=== PATIENT | female | born 1935 | race Caucasian/White ===

== ENCOUNTER 2020-07-02 20:47 | Inpatient (IN) | payer MEDICARE, OTHER, SELFPAY ==
--- NOTE | ~2020-07-02 | XR_ITS ---
EXAMINATION: XR chest 1V portable EXAM DATE: 07/02/2020 23:01 INDICATION: Syncope. Hypertension. Low blood sugar. TECHNIQUE: Portable AP frontal chest x-ray was obtained. Comparison is made to prior examination from 12/14/2015. FINDINGS: Suspect ill-defined bilateral pneumonia or edema. Please clinically correlate. Heart is nor mal in size. No pneumothorax or pleural effusion. There are bony degenerative changes. IMPRESSION: Probable bilateral ill-defined perihilar pneumonia or edema. Reviewed, dictated and finalized at location A.
[2020-07-02 20:45] VITALS: BP 218/104; PULSE 82; RESP 18; TEMP 36.8; O2SAT 99
[2020-07-02] MEDS: DEXTROSE 50% 25 GM/50 ML SYRINGE ×2 (21:18→22:39)
--- NOTE | 2020-07-02 21:59 | ED.GENADULT ---
HPI - General Adult General Chief complaint: Unspecified Stated complaint: low bs Time Seen by Provider: 07/02/20 21:06 History of Present Illness HPI narrative: Patient is a 85-year-old female who presents to emergency department with chief complaint of hypoglycemia. Patient today was getting her hair done and then her daughter checked on her several hours later and found the patient unresponsive. The patient was found to have a low blood sugar and was treated by EMS prior to arrival in the emergency department. Patient is on a long-acting and short acting insulin and states that she may have eaten less than normal this evening. Patient complains that she is cold otherwise she has no other complaints. Related Data Home Medications Medication Instructions Recorded Confirmed ergocalciferol (vitamin D2) 1,250 1,250 mcg PO WEEKLY 07/18/19 mcg (50,000 unit) capsule Allergies Allergy/AdvReac Type Severity Reaction Status Date / Time TU Inhibitors Allergy Unknown Other Verified 07/02/20 21:17 Review of Systems Review of Systems: Narrative: A 10 system review of systems was completed on the patient and is negative except for what is stated in the HPI. Nursing and ancillary documentation was reviewed. [facility] Past Medical History Medical History Chronic renal insufficiency, stage III (moderate) Essential hypertension FH: Parkinson's disease Hyperlipidemia associated with type 2 diabetes mellitus Osteopenia Type 2 diabetes mellitus with stage 3 chronic kidney disease Vitamin D deficiency Family History Family History Mother Asthma Family history of heart disease in male family member before age 55 Sibling Family history of Parkinson's disease, Onset Age: 86 Other Diabetes mellitus Social History Social History Smoking status: Former smoker Second hand tobacco smoke exposure: No Smoking end date: 04/13/97 Alcohol intake: never Exam Narrative: Exam Narrative: GENERAL: Well-appearing, well-nourished, and in no acute distress. HEAD: Normocephalic, atraumatic. EYES: PERRLA and EOMI. ENT: Nares clear, no rhinorrhea or epistaxis. Mucous membranes moist. NECK: Supple. CHEST: Clear to auscultation. No respiratory distress. HEART: Regular rate and rhythm. No murmur heard. Normal peripheral pulses. ABDOMEN: Soft, nontender, nondistended, normal active bowel sounds. EXTREMITIES: Normal range of motion. No edema. SKIN: Warm, dry, no rash. NEURO: No focal deficits. Alert and oriented x3. PSYCH: Normal mood and affect. Course Vital Signs Vital signs: Vital Signs Temperature 36.8 C 07/02/20 20:45 Pulse Rate 82 07/02/20 20:45 Respiratory Rate 18 07/02/20 20:45 Blood Pressure 218/104 H 07/02/20 20:45 Pulse Oximetry 99 07/02/20 20:45 Temperature 36.8 C 07/02/20 20:45 Pulse Rate 74 07/02/20 22:08 Respiratory Rate 16 07/02/20 22:08 Blood Pressure 193/89 H 07/02/20 22:08 Pulse Oximetry 98 07/02/20 22:08 Medical Decision Making Vital Signs Vital Signs: Vital Signs Temperature 36.8 C 07/02/20 20:45 Pulse Rate 82 07/02/20 20:45 Respiratory Rate 18 07/02/20 20:45 Blood Pressure 218/104 H 07/02/20 20:45 Pulse Oximetry 99 07/02/20 20:45 Temperature 36.8 C 07/02/20 20:45 Pulse Rate 74 07/02/20 22:08 Respiratory Rate 16 07/02/20 22:08 Blood Pressure 193/89 H 07/02/20 22:08 Pulse Oximetry 98 07/02/20 22:08 Lab Data Result diagrams: 07/02/20 22:36 07/02/20 22:36 Labs: Lab Results 07/02/20 07/02/20 07/02/20 Range/Units 21:15 22:10 22:26 WBC (4.5-10.0) K/mm3 RBC (4.2-5.4) M/mm3 Hgb (12.0-15.0) g/dL Hct (37.0-47.0) % MCV (80-100) fl MCH (26-34) pg MCHC (32-36) g/dl RDW
[2020-07-02 22:08] VITALS: BP 193/89; PULSE 74; RESP 16; O2SAT 98
[2020-07-02 22:20] LABS: Add Urine Microscopic? YES; Appearance Urine Cloudy (Clear); Bacteria Urine 4+ /hpf; Bilirubin Urine Negative (Negative); Blood Urine 1+ (Negative); Color Urine Yellow (Yellow); Glucose Urine UA 1+ mg/dL (Negative); Ketones Urine Negative (Negative); Leukocyte Esterase Ur 1+ LEU/UL (Negative); Mucus Urine Rare /lpf; Nitrate Urine Negative (Negative); Protein Urine 3+ mg/dL (Negative); Specific Grav Ur 1.014 (1.001-1.035); Squamous Epithelial Cell Urine Moderate /hpf (Few); Urobilinogen Urine Negative mg/dL (<2.0); WBC Urine 31-50 /hpf
[2020-07-02 22:43] LABS: Basophils Absolute Auto 0.1 K/mm3 (0.0-0.1); Basophils Percent Auto 0.3 % (0.2-1.2); Eosinophils Absolute Auto 0.1 K/mm3 (0-0.3); Eosinophils Percent Auto 0.5 % (0-4.4); Hemoglobin 12.9 g/dL (12.0-15.0); Immature Granulocyte Absolute 0.15 K/mm3 (0.00-0.031); Immature Granulocyte Percent A 0.8 % (0-0.5); Lymphocytes Absolute Auto 2.05 K/mm3 (0.9-3.2); Lymphocytes Percent Auto 10.8 % (18.3-44.2); Mean Corpuscular HGB Conc 33.9 g/dl (32-36); Mean Corpuscular Hemoglobin 29.5 pg (26-34); Mean Corpuscular Volume 86.8 fl (80-100); Mean Platelet Volume 9.6 fl (7.4-10.4); Monocytes Absolute Auto 1.3 K/mm3 (0.1-0.6); Neutrophils Absolute Auto 15.3 K/mm3 (1.3-6.7); Neutrophils Percent Auto 80.6 % (45.5-73.1); Platelet Count Result 372 k/mm3 (150-375); Red Blood Count 4.38 M/mm3 (4.2-5.4); Red Cell Distribution Width 12.5 % (11.5-14.5)
[2020-07-02] MEDS: DEXTROSE 10% 1,000 ML 75 ML IV CONT (22:45)
[2020-07-02 23:00] VITALS: BP 199/58; PULSE 74; RESP 18; O2SAT 100
[2020-07-02 23:09] LABS: Alanine Aminotransferase 14 U/L (4-35); Alkaline Phosphatase 76 U/L (38-126); Anion Gap 10 mmol/L (8-16); Aspartate Amino Transferase 26 U/L (14-36); Bilirubin,Total 0.4 mg/dL (0.2-1.3); Blood Urea Nitrogen 43 mg/dL (7-17); Calcium 9.2 mg/dL (8.4-10.2); Carbon Dioxide 24 mmol/L (22-30); Chloride 105 mmol/L (98-107); Estimated CRCL calculation 23 ml/min; Estimated Glomerular Filt Rate 27; Glucose 58 mg/dL (65-105); Potassium 3.7 mmol/L (3.4-5.0); Sodium 139 mmol/L (137-145)
[2020-07-02 23:16] LABS: Glucose Point of Care 193 (65-105)
[2020-07-02 23:16] LABS: Glucose Point of Care 40 (65-105)
[2020-07-02 23:38] LABS: Glucose Point of Care 137 (65-105)
[2020-07-02 23:45] VITALS: BP 178/67; PULSE 76; RESP 20; O2SAT 100
[2020-07-03] VITALS (15 sets, daily range): BP systolic 154–207; BP diastolic 56–87; PULSE 62–86; RESP 15–21; TEMP 36.4–36.7; O2SAT 95–99; BMI 37.8
--- NOTE | 2020-07-03 00:24 | PC.NURSE ---
Georgia rangel [phone]
[2020-07-03 01:02] LABS: Lactic Acid Reflex 2.6 mmol/L (0.7-2.1)
[2020-07-03] MEDS: SODIUM CHLORIDE 0.9% IV 1,000 ML 999 ML IV CONT (01:35)
[2020-07-03 02:05] LABS: Glucose Point of Care 204 (65-105)
--- NOTE | 2020-07-03 02:58 | ADMGEN ---
This patient, Elsie St, was admitted to IMU Room 231-01. Patient/family oriented to hospital policies and general routines including ID bracelet, bed and alarms, visiting hours, pain management, procedures, bathroom and other care routines, personal items, smoking policy, room service/diet, and visiting hours. Information on how to activate the Rapid Response Team has been discussed. Patient/Family are encouraged to report perceived risks to care and to ask questions if they do not understand what they are told or what they should do. Carolyn MCMAHON arrived [id number]
[2020-07-03] MEDS: hydrALAZINE HCL 20 MG/ML VIAL 10 MG IV PUSH (03:09)
--- NOTE | 2020-07-03 03:21 | PM.IMHP ---
H&P: HPI History of Present Illness Date/Time: 07/03/20 03:21 Chief Complaint: Passed out at home+ Narrative: This is a pleasant 85 year old Diabetic female with known history of HTN and hyperlipidemia who presented to the hospital after being found unresponsive at home yesterday. Apparently the patient took her usual 120 units of long acting insulin and 5 units of short acting insulin but didn't eat much afterwards. The patient cannot remember passing out before due to low blood sugars but does remark that last night she slid off of the couch accidently and ended up on the floor. She denies any loss of consciousness at that time or head trauma. The patient was started on Dextrose 10% to maintain her blood sugars in the ER tonight. She also complains of frequent urination but denies any dysuria, hematuria, or other urinary symptoms. Her urinalysis was abnormal and she was started on IV ceftriaxone. On further questioning she denies any headache, fever, chills, cough, shortness of breath, chest pain, palpitations, abdominal pain, nausea, vomiting, diarrhea, rectal bleeding, or LE swelling. ON my encounter with the patient tonight she has no focal deficits and is alert and oriented x 4. No other complaints. Review of Systems Review of Systems: All systems reviewed & are unremarkable except as noted in HPI and below PMFSH Past Medical History Medical History (Updated 07/03/20 @ 03:30 by Rubén Dowd MD) Chronic renal insufficiency, stage III (moderate) Essential hypertension FH: Parkinson's disease Hyperlipidemia associated with type 2 diabetes mellitus Osteopenia Type 2 diabetes mellitus with stage 3 chronic kidney disease Vitamin D deficiency Surgical History Surgical History (Updated 07/03/20 @ 03:26 by Rubén Dowd MD) History of appendectomy History of cholecystectomy Family History Family History Mother Asthma Family history of heart disease in male family member before age 55 Sibling Family history of Parkinson's disease, Onset Age: 86 Other Diabetes mellitus Social History Social History Smoking status: Never smoker Second hand tobacco smoke exposure: No Smoking end date: 04/13/97 Alcohol intake: never Substance use: never Gender identity (if verbalized by the patient): Female Spiritual care concerns: No Meds Home Medications and Allergies Home Medications Medication Instructions Recorded Confirmed Type ergocalciferol (vitamin D2) 1,250 1,250 mcg PO WEEKLY 07/18/19 07/03/20 History mcg (50,000 unit) capsule atorvastatin 20 mg tablet 20 mg PO DAILY #90 tablet 06/24/20 07/03/20 Rx hydrochlorothiazide 25 mg tablet 25 mg PO DAILY #90 tablet 06/24/20 07/03/20 Rx insulin glargine 100 unit/mL (3 120 unit SUB-Q DAILY #108 ml 06/24/20 07/03/20 Rx mL) subcutaneous pen insulin lispro 100 unit/mL 5 unit SUB-Q .TID AC #15 ml 06/24/20 07/03/20 Rx subcutaneous pen losartan 100 mg tablet 100 mg PO DAILY #90 tablet 06/24/20 07/03/20 Rx metformin 1,000 mg tablet See Rx Instructions .ROUTE 06/24/20 07/03/20 Rx .COMPLEX #180 tablet metoprolol succinate 100 mg 100 mg PO DAILY #90 tablet 06/24/20 07/03/20 Rx tablet,extended release 24 hr Allergies Allergy/AdvReac Type Severity Reaction Status Date / Time TU Inhibitors Allergy Unknown Other Verified 07/02/20 21:17 Vital Signs Vital Signs - 24 hr 07/02/20 20:45 07/02/20 22:08 07/02/20 23:00 Temperature 36.8 C Pulse Rate 82 74 74 Respiratory Rate 18 16 18 Blood Pressure 218/104 H 193/89 H 199/58 H Pulse Oximetry 99 98 100 07/02/20 23:45 07/03/20 00:00 07/03/20 00:30 Temperature Pulse Rate 76 75 79 Respiratory Rate 20 21 H 20 Blood Pressure 178/67 H 170/56 H 188/61 H Pulse Oximetry 100 99 99 07/03/20 01:00 Temperature Pulse Rate 77 Respiratory Rate 20 Blood Pressure 207/56 H Puls
[2020-07-03 03:42] LABS: Reflex Lactic Acid Yes or No Add Lactic
[2020-07-03 04:37] LABS: Glucose Point of Care 138 (65-105)
[2020-07-03 05:07] LABS: Lactic Acid 1.8 mmol/L (0.7-2.1)
[2020-07-03] MEDS: DEXTROSE 5% 1,000 ML 1,000 ML 75 ML IV CONT (05:28)
[2020-07-03 08:14] LABS: Glucose Point of Care 102 (65-105)
[2020-07-03] MEDS: ATORVASTATIN 20 MG TABLET PO (08:55)
[2020-07-03] MEDS: METOPROLOL SUCCINATE EXT REL 100 MG TABCR PO (08:55)
[2020-07-03 09:58] LABS: Glucose Point of Care 187 (65-105)
[2020-07-03 12:39] LABS: Glucose Point of Care 169 (65-105)
[2020-07-03 14:23] LABS: Glucose Point of Care 187 (65-105)
[2020-07-03 17:12] LABS: Glucose Point of Care 155 (65-105)
--- NOTE | 2020-07-03 17:13 | PM.IMPN ---
Progress Note: A&P Assessment and Plan (1) Hypoglycemia: Code(s): E16.2 - Hypoglycemia, unspecified Status: Acute Assessment and Plan: The patient has been placed in observation status. Appears to be secondary to insulin use and poor nutrition. Accuchecks. We will hold D10 as her blood glucose is now >200 mg/dl. 07/03/20 17:13 Patient 85-year-old moderately obese female with history of diabetes and take long-acting insulin 120 units at the bedtime and 5 units of NovoLog however patient took her insulin but did not eat much and later was found unresponsive and was brought to the emergency department further evaluate patient was started on dextrose and her blood sugar have improved and we have holding her long-acting insulin, started on low-dose sliding scale to monitor and will adjust her insulin as needed, is also found to leukourea with complaint dysuria and frequency of urination suspect patient have UTI being treated with Rocephin will follow-up on culture and sensitivity and further recommendation to follow, will have a PT OT evaluate the pain and further recommendation to follow. Her son is present in the room. (2) Acute UTI: Code(s): N39.0 - Urinary tract infection, site not specified Status: Acute Assessment and Plan: Continue ceftriaxone, urine culture pending. (3) Leukocytosis: Qualifiers: Leukocytosis type: unspecified Qualified Code(s): D72.829 - Elevated white blood cell count, unspecified Code(s): D72.829 - Elevated white blood cell count, unspecified Status: Acute Assessment and Plan: Secondary to UTI. monitor CBCd. (4) Severe sepsis: Code(s): A41.9 - Sepsis, unspecified organism; R65.20 - Severe sepsis without septic shock Status: Acute Assessment and Plan: Source of sepsis appears to be urinary. Check reflex lactic acid. monitor vital signs closely, continue IV antibiotics, (5) Acute on chronic renal failure: Code(s): N17.9 - Acute kidney failure, unspecified; N18.9 - Chronic kidney disease, unspecified Status: Acute (6) Type 2 diabetes mellitus with stage 3 chronic kidney disease: Code(s): E11.22 - Type 2 diabetes mellitus with diabetic chronic kidney disease; N18.3 - Chronic kidney disease, stage 3 (moderate) Status: Acute Assessment and Plan: Accuchecks, hypoglycemia protocol. resume home insulin therapy when appropriate. (7) Essential hypertension: Code(s): I10 - Essential (primary) hypertension Status: Chronic Assessment and Plan: Uncontrolled. PRN IV hydralazine. Continue home antihypertensives. Subjective Date/time seen: 07/03/20 17:13 Patient 85-year-old moderately obese female with history of diabetes and take long-acting insulin 120 units at the bedtime and 5 units of NovoLog however patient took her insulin but did not eat much and later was found unresponsive and was brought to the emergency department further evaluate patient was started on dextrose and her blood sugar have improved and we have holding her long-acting insulin, started on low-dose sliding scale to monitor and will adjust her insulin as needed, is also found to leukourea with complaint dysuria and frequency of urination suspect patient have UTI being treated with Rocephin will follow-up on culture and sensitivity and further recommendation to follow, will have a PT OT evaluate the pain and further recommendation to follow. Her son is present in the room. Review of Systems Review of Systems: All systems reviewed & are unremarkable except as noted in HPI and below Exam Narrative: Exam Narrative: Moderately obese Patient is comfortable, NAD HEENT: eyes are clear and none icteric LUNGS:CTA HEART: RR S1S2 ABD: BS+, Soft and nontender Lower extremities: no edema SKIN: nonjaundiced Neuro: grossly intact. Objective Data Vital Signs Vital Signs: Vital Signs - 24 hr 07/02/20 20:45 07/02/20
[2020-07-03 20:05] LABS: Glucose Point of Care 246 (65-105)
[2020-07-04 04:45] LABS: Alanine Aminotransferase 12 U/L (4-35); Albumin Level 3.5 g/dL (3.5-5.1); Alkaline Phosphatase 67 U/L (38-126); Anion Gap 8 mmol/L (8-16); Aspartate Amino Transferase 21 U/L (14-36); Bilirubin,Total 0.3 mg/dL (0.2-1.3); Blood Urea Nitrogen 35 mg/dL (7-17); Calcium 8.7 mg/dL (8.4-10.2); Carbon Dioxide 25 mmol/L (22-30); Chloride 107 mmol/L (98-107); Estimated CRCL calculation 24 ml/min; Estimated Glomerular Filt Rate 31; Glucose 110 mg/dL (65-105); Potassium 3.8 mmol/L (3.4-5.0); Sodium 140 mmol/L (137-145)
[2020-07-04 05:00] VITALS: BP 160/71; PULSE 80; RESP 18; TEMP 36.6; O2SAT 97
[2020-07-04 08:00] VITALS: BP 196/62; PULSE 72; RESP 18; TEMP 36.3; O2SAT 97
[2020-07-04 08:51] LABS: Glucose Point of Care 112 (65-105)
[2020-07-04 09:16] VITALS: PULSE 80
[2020-07-04] MEDS: METOPROLOL SUCCINATE EXT REL 100 MG TABCR PO (09:16)
[2020-07-04] MEDS: ATORVASTATIN 20 MG TABLET PO (09:16)
[2020-07-04 12:00] VITALS: BP 181/64; PULSE 75; RESP 18; TEMP 36.3; O2SAT 95
[2020-07-04] MEDS: CALCIUM CARBONATE (TUMS) 500 MG (200 MG ELEMENTAL) PO (13:04)
[2020-07-04 13:05] LABS: Glucose Point of Care 178 (65-105)
--- NOTE | 2020-07-04 13:47 | PC.NURSE ---
This patient, Elsie St, was transferred to [facility] on 07/04/20 at 1347. Personal belongings sent with patient. Report given to SALOME Lara. Appropriate documentation sent with patient.
--- NOTE | 2020-07-04 13:50 | PC.NURSE ---
Patient to room 346 via hospital bed. Patient oriented to room and policies. Belongings with patient.
--- NOTE | 2020-07-04 15:34 | PM.IMPN ---
Progress Note: A&P Assessment and Plan (1) Hypoglycemia: Code(s): E16.2 - Hypoglycemia, unspecified Status: Acute Assessment and Plan: The patient has been placed in observation status. Appears to be secondary to insulin use and poor nutrition. Accuchecks. We will hold D10 as her blood glucose is now >200 mg/dl. 07/04/20 15:34 07/03 Patient 85-year-old moderately obese female with history of diabetes and take long-acting insulin 120 units at the bedtime and 5 units of NovoLog however patient took her insulin but did not eat much and later was found unresponsive and was brought to the emergency department further evaluate patient was started on dextrose and her blood sugar have improved and we have holding her long-acting insulin, started on low-dose sliding scale to monitor and will adjust her insulin as needed, is also found to leukourea with complaint dysuria and frequency of urination suspect patient have UTI being treated with Rocephin will follow-up on culture and sensitivity and further recommendation to follow, will have a PT OT evaluate the pain and further recommendation to follow. Her son is present in the room. 07/04 today patient stats she did not sleep well last night but denies any complaints of chest pain shortness of breath or dizziness, patient is taking 120 units of long-acting insulin at home and presented with hypoglycemia and holding her long acting insulin in the hospital her blood sugars below 200, I spoke with her daughter that will hold her long acting insulin and monitor with sliding scale and consult music educator and further recommendation to follow, patient urine culture is growing Gram-negative bacilli will continue Rocephin will follow-up urine culture and sensitivity. (2) Acute UTI: Code(s): N39.0 - Urinary tract infection, site not specified Status: Acute Assessment and Plan: Continue ceftriaxone, urine culture pending. (3) Leukocytosis: Qualifiers: Leukocytosis type: unspecified Qualified Code(s): D72.829 - Elevated white blood cell count, unspecified Code(s): D72.829 - Elevated white blood cell count, unspecified Status: Acute Assessment and Plan: Secondary to UTI. monitor CBCd. (4) Severe sepsis: Code(s): A41.9 - Sepsis, unspecified organism; R65.20 - Severe sepsis without septic shock Status: Acute Assessment and Plan: Source of sepsis appears to be urinary. Check reflex lactic acid. monitor vital signs closely, continue IV antibiotics, (5) Acute on chronic renal failure: Code(s): N17.9 - Acute kidney failure, unspecified; N18.9 - Chronic kidney disease, unspecified Status: Acute (6) Type 2 diabetes mellitus with stage 3 chronic kidney disease: Code(s): E11.22 - Type 2 diabetes mellitus with diabetic chronic kidney disease; N18.3 - Chronic kidney disease, stage 3 (moderate) Status: Acute Assessment and Plan: Accuchecks, hypoglycemia protocol. resume home insulin therapy when appropriate. (7) Essential hypertension: Code(s): I10 - Essential (primary) hypertension Status: Chronic Assessment and Plan: Uncontrolled. PRN IV hydralazine. Continue home antihypertensives. Subjective Date/time seen: 07/04/20 15:34 07/03 Patient 85-year-old moderately obese female with history of diabetes and take long-acting insulin 120 units at the bedtime and 5 units of NovoLog however patient took her insulin but did not eat much and later was found unresponsive and was brought to the emergency department further evaluate patient was started on dextrose and her blood sugar have improved and we have holding her long-acting insulin, started on low-dose sliding scale to monitor and will adjust her insulin as needed, is also found to leukourea with complaint dysuria and frequency of urination suspect patient have UTI being treated with Rocephin will follow-up on culture and sensitivity an
[2020-07-04 16:40] LABS: Glucose Point of Care 209 (65-105)
[2020-07-04] MEDS: INSULIN ASPART (*BKC) 100 UNITS/ML SUB-Q (16:42)
[2020-07-04 20:38] VITALS: BP 153/63; PULSE 64; RESP 18; TEMP 36.4; O2SAT 97
[2020-07-04 21:40] LABS: Glucose Point of Care 232 (65-105)
[2020-07-05 05:15] VITALS: BP 158/74; PULSE 68; RESP 18; TEMP 36.2; O2SAT 98
[2020-07-05 08:31] LABS: Glucose Point of Care 170 (65-105)
[2020-07-05 08:48] LABS: Hematocrit 36.4 % (37.0-47.0); Hemoglobin 11.7 g/dL (12.0-15.0); Mean Corpuscular HGB Conc 32.1 g/dl (32-36); Mean Corpuscular Hemoglobin 29.4 pg (26-34); Mean Corpuscular Volume 91.5 fl (80-100); Mean Platelet Volume 9.6 fl (7.4-10.4); Platelet Count Result 283 k/mm3 (150-375); Red Blood Count 3.98 M/mm3 (4.2-5.4); Red Cell Distribution Width 12.6 % (11.5-14.5); White Blood Count 11.2 K/mm3 (4.5-10.0)
[2020-07-05 09:01] LABS: Anion Gap 7 mmol/L (8-16); Blood Urea Nitrogen 38 mg/dL (7-17); Calcium 9.1 mg/dL (8.4-10.2); Carbon Dioxide 26 mmol/L (22-30); Chloride 106 mmol/L (98-107); Estimated CRCL calculation 24 ml/min; Estimated Glomerular Filt Rate 31; Glucose 178 mg/dL (65-105); Potassium 4.1 mmol/L (3.4-5.0); Sodium 139 mmol/L (137-145)
[2020-07-05 09:10] VITALS: PULSE 68
[2020-07-05] MEDS: METOPROLOL SUCCINATE EXT REL 100 MG TABCR PO (09:10)
[2020-07-05] MEDS: ATORVASTATIN 20 MG TABLET PO (09:10)
--- NOTE | 2020-07-05 12:22 | PM.DS ---
DS: Admitting Diagnosis Admitting Diagnosis Admitting Diagnosis: Chief Complaint: Passed out at home+ DS: Discharge Diagnosis Discharge Diagnosis (1) Hypoglycemia: Code(s): E16.2 - Hypoglycemia, unspecified Status: Acute Assessment and Plan: The patient has been placed in observation status. Appears to be secondary to insulin use and poor nutrition. Accuchecks. We will hold D10 as her blood glucose is now >200 mg/dl. 07/04/20 15:34 07/03 Patient 85-year-old moderately obese female with history of diabetes and take long-acting insulin 120 units at the bedtime and 5 units of NovoLog however patient took her insulin but did not eat much and later was found unresponsive and was brought to the emergency department further evaluate patient was started on dextrose and her blood sugar have improved and we have holding her long-acting insulin, started on low-dose sliding scale to monitor and will adjust her insulin as needed, is also found to leukourea with complaint dysuria and frequency of urination suspect patient have UTI being treated with Rocephin will follow-up on culture and sensitivity and further recommendation to follow, will have a PT OT evaluate the pain and further recommendation to follow. Her son is present in the room. 07/04 today patient stats she did not sleep well last night but denies any complaints of chest pain shortness of breath or dizziness, patient is taking 120 units of long-acting insulin at home and presented with hypoglycemia and holding her long acting insulin in the hospital her blood sugars below 200, I spoke with her daughter that will hold her long acting insulin and monitor with sliding scale and consult chemical educator and further recommendation to follow, patient urine culture is growing Gram-negative bacilli will continue Rocephin will follow-up urine culture and sensitivity. (2) Acute UTI: Code(s): N39.0 - Urinary tract infection, site not specified Status: Acute Assessment and Plan: Continue ceftriaxone, urine culture pending. (3) Leukocytosis: Qualifiers: Leukocytosis type: unspecified Qualified Code(s): D72.829 - Elevated white blood cell count, unspecified Code(s): D72.829 - Elevated white blood cell count, unspecified Status: Acute Assessment and Plan: Secondary to UTI. monitor CBCd. (4) Severe sepsis: Code(s): A41.9 - Sepsis, unspecified organism; R65.20 - Severe sepsis without septic shock Status: Acute Assessment and Plan: Source of sepsis appears to be urinary. Check reflex lactic acid. monitor vital signs closely, continue IV antibiotics, (5) Acute on chronic renal failure: Code(s): N17.9 - Acute kidney failure, unspecified; N18.9 - Chronic kidney disease, unspecified Status: Acute (6) Type 2 diabetes mellitus with stage 3 chronic kidney disease: Code(s): E11.22 - Type 2 diabetes mellitus with diabetic chronic kidney disease; N18.3 - Chronic kidney disease, stage 3 (moderate) Status: Acute Assessment and Plan: Accuchecks, hypoglycemia protocol. resume home insulin therapy when appropriate. (7) Essential hypertension: Code(s): I10 - Essential (primary) hypertension Status: Chronic Assessment and Plan: Uncontrolled. PRN IV hydralazine. Continue home antihypertensives. DS: Summary Hospital Course Reason for hospitalization: Chief Complaint: Passed out at home+ Narrative: This is a pleasant 85 year old Diabetic female with known history of HTN and hyperlipidemia who presented to the hospital after being found unresponsive at home yesterday. Apparently the patient took her usual 120 units of long acting insulin and 5 units of short acting insulin but didn't eat much afterwards. The patient cannot remember passing out before due to low blood sugars but does remark that last night she slid off of the couch accidently and ended up on the floor. She de
[2020-07-05 13:01] LABS: Glucose Point of Care 186 (65-105)
[2020-07-26 07:23] LABS: Glucose Point of Care < 20 (65-105)
== END 2020-07-05 14:20 | disposition home health service (06) | DRG 872 ==
LOC: ANHED 07-03 01:05 → ANHIMU 07-03 01:39 → ANH3MED 07-05 11:16 → ANHIMU 07-06 13:34
PROVIDERS: Admitting Provider Family Medicine; Emergency Provider Emergency Medicine; PCP Family Medicine; Visit Provider Family Medicine
DX: A41.9 Sepsis, unspecified organism (principal); N39.0 Urinary tract infection, site not specified; N17.9 Acute kidney failure, unspecified; R65.20 Severe sepsis without septic shock; E11.649 Type 2 diabetes mellitus with hypoglycemia without coma; E11.22 Type 2 diabetes mellitus with diabetic chronic kidney disease; I12.9 Hypertensive chronic kidney disease with stage 1 through stage 4 chronic kidney disease, or unspecified chronic kidney disease; N18.30 Chronic kidney disease, stage 3 unspecified; E11.69 Type 2 diabetes mellitus with other specified complication; E78.5 Hyperlipidemia, unspecified; E55.9 Vitamin D deficiency, unspecified; M85.80 Other specified disorders of bone density and structure, unspecified site; Z79.4 Long term (current) use of insulin; Z79.899 Other long term (current) drug therapy
CPT/HCPCS: 36415; 71045; 80048; 80053; 81001; 82948; 83605; 85025; 85027; 87040; 87077; 87086; 87088; 87186; 96361; 96365; 96375; 96376; 97161; 97165; 97530; 97535; 99285; A9270; G0378; J0360; J0696; J1815; J7030; J7070

== ENCOUNTER 2020-12-03 10:22 | Emergency (ER) | payer MEDICARE, OTHER, SELFPAY ==
--- NOTE | ~2020-12-03 | XR_ITS ---
EXAMINATION: XR hip LT min 2V EXAM DATE: 12/03/2020 11:07 INDICATION: pain to LT lateral hip after a child ran into her. Initial encounter. TECHNIQUE: Left hip frontal, 'frog leg' projections for interpretation. There is no prior study for comparison. FINDINGS: Smooth left hip femoral head contour, no radiographic evidence of avascular necrosis. There is mild primary osteoarthritis. There are no acute fractures or dislocations identified. There is no subcutaneous gas. The soft tissue is unremarkable. There are no radiopaque foreign bodies. IMPRESSION: 1. XR hip LT min 2V exam without acute osseous findings. 2. Mild osteoarthritis. Reviewed, dictated and finalized at location A.
--- NOTE | ~2020-12-03 | XR_ITS ---
EXAMINATION: XR ankle LT min 3V EXAM DATE: 12/03/2020 11:07 INDICATION: Pain left lateral ankle no injury. TECHNIQUE: Left ankle frontal, lateral and oblique projections obtained and reviewed. There is no pr ior study for comparison. FINDINGS: The left ankle mortise appears intact. There are small calcaneal spurs. Sequela from prio r medial malleolar avulsion injury. There are no acute fractures or dislocations identified. There i s no subcutaneous gas. The soft tissue is unremarkable. There are no radiopaque foreign bodies. IMPRESSION: Chronic findings as above. Reviewed, dictated and finalized at location A. IMPRESSION: Chronic findings as above.
[2020-12-03 10:40] VITALS: BP 222/68; PULSE 68; RESP 20; TEMP 36.3; O2SAT 98
--- NOTE | 2020-12-03 11:41 | ED.LOWEXIN ---
HPI - Extremity Injury (Lower) General Chief Complaint: Extremity Injury, Lower Stated Complaint: left ankle/hip pain Time Seen by Provider: 12/03/20 11:42 Source: patient and RN notes reviewed Mode of arrival: ambulatory Limitations: no limitations History of Present Illness HPI Narrative: 85-year-old female presents to the [facility] with complaints of left hip and left ankle pain for 1 week. Patient states that a 4-year-old ran right into her about 5 days ago and still having discomfort to the head and ankle area. Patient states she did not fall over., Lost her balance but did not fall. No abdominal pain or chest pain. Is walking with a walker No treatment prior to arrival. Patient has a history of hypertension states that she does take her medication daily. Related Data Home Medications Medication Instructions Recorded Confirmed dorzolamide 22.3 mg-timolol 6.8 1 drp EACH EYE BID 10/17/20 10/18/20 mg/mL eye drops Allergies Allergy/AdvReac Type Severity Reaction Status Date / Time TU Inhibitors Allergy Unknown Other Verified 10/17/20 14:49 Review of Systems Review of Systems: All systems reviewed & are unremarkable except as noted in HPI and below Constitutional: Constitutional: Reports no additional constitutional complaints Eyes: Eyes: Reports no additional eye complaints ENT: Reports system reviewed and no additional complaints, except as documented Cardiovascular: Cardiovascular: Reports no additional cardiovascular complaints and Denies chest pain Respiratory: Respiratory: Reports no additional respiratory complaints, Denies cough and Denies dyspnea Gastrointestinal: Gastrointestinal: Reports no additional gastrointestinal complaints, Denies abdominal pain, Denies nausea and Denies vomiting Musculoskeletal: Musculoskeletal: Reports as per HPI, Denies back pain, Reports arthralgias (Left hip, left ankle) and Denies joint swelling Integumentary/Breasts: Skin/Breast: Reports system reviewed and no additional complaints, except as docu and Denies rash Neurologic: Reports system reviewed and no additional complaints, except as documented Psychiatric: Psychiatric: Reports no additional psychiatric complaints Allergic/Immunologic: Allergic/Immunologic: Reports no additional allergic/immunologic complaints PMFSH Past Medical History Medical History Chronic renal insufficiency, stage III (moderate) Essential hypertension FH: Parkinson's disease Hyperlipidemia associated with type 2 diabetes mellitus Osteopenia Type 2 diabetes mellitus with stage 3 chronic kidney disease Vitamin D deficiency Surgical History Surgical History History of appendectomy History of cholecystectomy Family History Family History Mother Asthma Family history of heart disease in male family member before age 55 Sibling Family history of Parkinson's disease, Onset Age: 86 Other Diabetes mellitus Social History Social History Second hand tobacco smoke exposure: No Smoking end date: 04/13/97 Alcohol intake: never Substance use: never Gender identity (if verbalized by the patient): Female Spiritual care concerns: No Comments At the time of my signature, I reviewed and agree with the nursing past medical, surgical, social, and family history. There is no relevant family history pertinent to the patient complaint. Exam Const: General: no acute distress and ill appearing chronically Nutritional Appearance: well nourished and obese Orientation/consciousness: patient oriented x3 Limitations: No no limitations ([place]) HENMT: Head: normal to inspection Ears: external ears normal, TM's normal bilaterally and EAC's normal Eyes: Pupils: Equal, round and reactive pupils present Neck: Neck: normal visual inspectio
[2020-12-03 12:10] VITALS: BP 148/76
== END 2020-12-03 12:10 | disposition home or self-care (01) ==
PROVIDERS: Emergency Provider Nurse Practitioner; PCP Family Medicine
DX: S70.02XA Contusion of left hip, initial encounter (principal); X58.XXXA Exposure to other specified factors, initial encounter; M25.572 Pain in left ankle and joints of left foot; M19.072 Primary osteoarthritis, left ankle and foot; I12.9 Hypertensive chronic kidney disease with stage 1 through stage 4 chronic kidney disease, or unspecified chronic kidney disease; E11.22 Type 2 diabetes mellitus with diabetic chronic kidney disease; N18.30 Chronic kidney disease, stage 3 unspecified; G20 Parkinson's disease; E78.5 Hyperlipidemia, unspecified; M81.0 Age-related osteoporosis without current pathological fracture
CPT/HCPCS: 73502; 73610; 99214; G0463

== ENCOUNTER 2020-12-22 07:27 | Inpatient (IN) | payer MEDICARE, OTHER, SELFPAY ==
[2020-12-22] VITALS (8 sets, daily range): BP systolic 142–193; BP diastolic 54–86; PULSE 64–78; RESP 18–28; TEMP 36.5–37.1; O2SAT 96–99; BMI 36.4
--- NOTE | ~2020-12-22 | XR_ITS ---
XR chest PICC line 12/22/2020 16:01 Indication: PICC line verification Procedure: AP portable chest Comparison: Comparison to multiple prior studies sequentially, with oldest reviewed study dated 03/14. Findings: Heart size is normal. PICC line tip in the SVC. No focal pneumonia. There is mild pulmonary vascular congestion. No pneumothorax. Impression: 1: Mild pulmonary vascular congestion. Reviewed, dictated and finalized at location A. Impression: 1: Mild pulmonary vascular congestion.
--- NOTE | ~2020-12-22 | CT_ITS ---
EXAMINATION: CT brain wo con EXAM DATE: 12/22/2020 10:49 INDICATION: Loss of consciousness. Temporary change in awareness. TECHNIQUE: Spiral CT of the head was performed without contrast. Axial, coronal and sagittal images were reviewed. The dose-length product (DLP) for this examination was 605.33 mGy-cm. The exposure w as tailored according to patient size, and iterative reconstruction (ASIR) was used as additional dos e reduction technique. There is no prior study for comparison. FINDINGS: There is no acute intraparenchymal hemorrhage. No evidence of intraparenchymal brain mass lesion. No evidence of acute infarction. Please note that initial head CT has limited sensitivity f or small or acute infarctions. There is moderate periventricular and subcortical hypodensity, nonspec ific but probably related to small vessel ischemic disease. There is mild prominence of the sulci a nd ventricles related to cerebral atrophy. There is intracranial carotid arteriosclerosis. There a re no extra-axial collections. There is no mass effect or midline shift. Patient has had bilateral ocular lens surgery. Soft tissue is unremarkable. The visualized sinuses and mastoid air cells are well aerated. IMPRESSION: 1. No acute intracranial findings. 2. Chronic age related findings. Reviewed, dictated and finalized at location A.
--- NOTE | ~2020-12-22 | XR_ITS ---
EXAMINATION: XR hip LT min 3V w AP pelvis EXAM DATE: 12/22/2020 13:07 INDICATION: fall, pain with palpation/weightbearing . Initial encounter. TECHNIQUE: Left hip frontal, crosstable lateral and 'frog-leg' projections for interpretation. Fronta l projection pelvis. Comparison is made to prior examination from 12/03/2020. FINDINGS: There is mild to moderate symmetric bilateral sacroiliac primary osteoarthritis. There are no acute fractures or dislocations identified. There is no subcutaneous gas. The soft tissue is unr emarkable. There are no radiopaque foreign bodies. IMPRESSION: No acute osseous findings. Reviewed, dictated and finalized at location A. IMPRESSION: No acute osseous findings.
--- NOTE | ~2020-12-22 | XR_ITS ---
EXAMINATION: XR knee LT 3V EXAM DATE: 12/22/2020 10:09 INDICATION: Fall, left knee pain. TECHNIQUE: Three projections of the left knee. There is no prior study for comparison. FINDINGS: No evidence osteochondral defect or joint body in the left knee joint. There are no acute fractures or dislocations identified. There is no subcutaneous gas. Small joint effusion. Soft tis parmjit swelling anterior to the patellar tendon. There is patellar enthesopathy. There is moderate prima ry osteoarthritis, patellofemoral compartment most affected. There are no radiopaque foreign bodies. IMPRESSION: 1. XR knee LT 3V exam without acute osseous findings. 2. Anterior subcutaneous edema. 3. Small joint effusion. 4. Moderate osteoarthritis. Reviewed, dictated and finalized at location A.
--- NOTE | ~2020-12-22 | XR_ITS ---
EXAMINATION: XR chest 1V portable EXAM DATE: 12/22/2020 10:09 INDICATION: Confusion. Fall, left knee pain. TECHNIQUE: Portable AP frontal chest x-ray was obtained. Comparison is made to prior examination from 07/02/2020. FINDINGS: The lungs are clear. There are no pleural effusions. Cardiac silhouette is prominent but magnified on this AP technique. There is no pneumothorax suspected. The bones and soft tissues are unremarkable. IMPRESSION: No acute cardiopulmonary findings. Reviewed, dictated and finalized at location A.
--- NOTE | 2020-12-22 09:29 | ECG_ITS ---
Measurements Intervals [place] Rate: 66 P: 56 TX: 201 QRS: -25 QRSD: 152 T: 11 QT: 425 QTc: 446 Interpretive Statements SINUS RHYTHM BORDERLINE AV CONDUCTION DELAY RIGHT BUNDLE BRANCH BLOCK ABNORMAL ECG Electronically Signed On 12-22-2020 11:25:39 CDT by Ronald Parham D.O.
--- NOTE | 2020-12-22 09:49 | ED.SYNCOPE ---
HPI - Syncope General Chief Complaint: Fall Stated Complaint: FALL/L HIP PAIN Time Seen by Provider: 12/22/20 07:45 Source: patient, family, EMS and RN notes reviewed Limitations: no limitations History of Present Illness HPI narrative: Patient is 85 years old white female brought to the emergency room by ambulance from home with her daughter because of syncope. The daughter is telling me that patient been feeling weak over the last few weeks. Intermittent confusion since July 2020, this morning went to the bathroom and did not have enough time to sit on the toilet and urinated all over the place and blacked out. Patient could not get up off the floor, 911 was called, currently patient is asymptomatic as long as does not move. Patient is fully vaccinated for COVID-19, currently denies any fever, chills, nausea, vomiting, chest pain, shortness of breath, headache, neck pain back pain abdominal pain. Complaining of left knee pain if she moves it. Related Data Home Medications Medication Instructions Recorded Confirmed dorzolamide 22.3 mg-timolol 6.8 1 drp EACH EYE BID 10/17/20 10/18/20 mg/mL eye drops Allergies Allergy/AdvReac Type Severity Reaction Status Date / Time TU Inhibitors Allergy Unknown Other Verified 10/17/20 14:49 Review of Systems Review of Systems: CONSTITUTIONAL: Denies fever, chills, or sweats. EYES: Denies visual changes, redness, or discharge. ENT: Denies rhinorrhea, congestion, sore throat, or otalgia. CARDIOVASCULAR: Denies chest pain, palpitations, or edema. RESPIRATORY: Denies cough or dyspnea. GASTROINTESTINAL: Denies abdominal pain, nausea, vomiting, or diarrhea. GENITOURINARY: Denies dysuria or hematuria. SKIN: Denies rash or itching. MUSCULOSKELETAL: Denies back pain, joint pain, or myalgia. NEUROLOGIC: Denies headache, numbness, or weakness. PSYCHIATRIC: Denies anxiety or depression. [facility] Past Medical History Medical History Chronic renal insufficiency, stage III (moderate) Essential hypertension FH: Parkinson's disease Hyperlipidemia associated with type 2 diabetes mellitus Osteopenia Type 2 diabetes mellitus with stage 3 chronic kidney disease Vitamin D deficiency Surgical History Surgical History History of appendectomy History of cholecystectomy Family History Family History Mother Asthma Family history of heart disease in male family member before age 55 Sibling Family history of Parkinson's disease, Onset Age: 86 Other Diabetes mellitus Social History Social History Second hand tobacco smoke exposure: No Smoking end date: 04/13/97 Alcohol intake: never Substance use: never Gender identity (if verbalized by the patient): Female Spiritual care concerns: No Exam Narrative: General appearance: Well-developed, well-nourished Skin: Normal color Head: Normocephalic, nontraumatic Eyes: Clear conjunctiva ENT: Oropharynx normal, ears normal, nose normal Neck: Supple, nontender Chest and respiratory: Airway patent, no respiratory distress, no accessory muscle use Heart: Regular rate/rhythm Abdomen: Soft, nontender, no organomegaly, quiet bowel sounds Vascular: Normal peripheral pulses, normal capillary refill. Musculoskeletal: Mild diffuse tenderness left knee anteriorly, slightly bruised, slight limited range of motion Neurologic: Alert and oriented ?3, [employer] is normal as tested, no gross motor deficit Course Course Emergency Course: Stable Vital Signs Vital signs: V
[2020-12-22 10:55] LABS: Add Urine Microscopic? YES; Appearance Urine Cloudy (Clear); Bilirubin Urine Negative (Negative); Blood Urine 1+ (Negative); Color Urine Yellow (Yellow); Glucose Urine UA 1+ mg/dL (Negative); Ketones Urine Negative (Negative); Leukocyte Esterase Ur 3+ LEU/UL (Negative); Mucus Urine Rare /lpf; Nitrate Urine Negative (Negative); Protein Urine 3+ mg/dL (Negative); RBC Urine 51-75 /hpf (0-2); Specific Grav Ur 1.016 (1.001-1.035); Urobilinogen Urine Negative mg/dL (<2.0); WBC Clumps Urine Present /HPF; WBC Urine >75 /hpf
[2020-12-22] MEDS: cefTRIAXone 1 GM VIAL IM (12:35)
[2020-12-22] MEDS: LIDOCAINE HCL 1% LOCAL INJ 20 ML VIAL 2.1 ML IM (12:36)
--- NOTE | 2020-12-22 12:52 | PC.NURSE ---
Patient has had frequent falls at home. She does use a walker for ambulation normally.
--- NOTE | 2020-12-22 12:54 | PC.NURSE ---
Hospitalist in room, gave verbal order for left hip and pelvis xray.
--- NOTE | 2020-12-22 13:39 | PM.IMHP ---
H&P: HPI History of Present Illness Date/Time: 12/22/20 13:39 this is an 85-year-old female patient who lives home alone. The patient has been complaining of weakness for the last couple weeks. The patient fell approximately 2 weeks ago complaining of left knee and left hip pain. The patient went to the urgent care on 12/03/2020 and had the left hip x-rayed which showed osteoarthritis. Today the patient was sitting on the toilet felt like she was going to vomit the patient stood up to vomit in the sink when she fell over she was stuck between the toilet and the shower and her daughter was not able to lift her up and the patient was not able to ambulate. According to the daughter the patient has been had intermittent confusion since July 2020. The patient has become more forgetful as well. The patient has been using a walker for the last 2 weeks. EMS was activated today when the patient was not able to stand up. The patient has been fully vaccinated for COVID-19. She denies any fever chills nausea vomiting or chest pain. She denies any shortness of breath and complaints of left knee and left hip pain. The patient was found to be positive for UTI. Multiple attempts were made for IV insertion without success. Therefore patient was given IM Rocephin. Venous access nurse has been called for PICC line. The patient is very hard of hearing there for her daughter was answering questions for her. No labs were drawn today as the patient was a difficult lab draw. Just a UA was obtained. Chest x-ray was read as no acute cardiopulmonary findings. Left knee x-ray without acute osseous findings. Anterior subcutaneous edema. Small joint effusion. Moderate ostial arthritis. Head CT read per radiology as no acute intracranial findings. Chronic age-related findings. Hip and pelvis x-ray was read as no acute osseous findings. The patient is being admitted to observation status on the date of service of 12/22/2020 Chief Complaint: Fall with weakness Review of Systems Review of Systems: All systems reviewed & are unremarkable except as noted in HPI and below Constitutional: Constitutional: Reports as per HPI and Reports no additional constitutional complaints Eyes: Eyes: Reports as per HPI and Reports no additional eye complaints ENT: Reports system reviewed and no additional complaints, except as documented and Reports Normal hearing present Cardiovascular: Cardiovascular: Reports no additional cardiovascular complaints Respiratory: Respiratory: Reports no additional respiratory complaints and Reports no additional respiratory complaints Gastrointestinal: Gastrointestinal: Reports as per HPI and Reports no additional gastrointestinal complaints Musculoskeletal: Musculoskeletal: Reports no additional musculoskeletal complaints Integumentary/Breasts: Skin/Breast: Reports system reviewed and no additional complaints, except as docu and Reports as per HPI Neurologic: Reports system reviewed and no additional complaints, except as documented, Reports as per HPI and Reports Normal hearing present Psychiatric: Psychiatric: Reports no additional psychiatric complaints and Reports as per HPI Endocrine: Endocrine: Reports no additional endocrine complaints Hematologic/Lymphatic: Hematologic/Lymphatic: Reports no additional hematologic/lymphatic complaints Allergic/Immunologic: Allergic/Immunologic: Reports no additional allergic/immunologic complaints [facility] Past Medical History Medical History (Updated 12/22/20 @ 13:52 by Priscilla Jacques NP) Chronic renal insufficiency, stage III (moderate) Essential hypertension FH: Parkinson's disease Glaucoma History of diverticulitis of colon Hyperlipidemia associated with type 2 diabetes mellitus Osteopenia Type 2 diabetes mellitus with stage 3 chronic kidney disease Vitamin D deficiency Surgical History Surgical History (Updated 12/22/20 @ 13:52 by Priscilla Jacques NP) History of appendectomy Histo
[2020-12-22 15:02] LABS: Basophils Percent Auto 0.3 % (0.2-1.2); Eosinophils Percent Auto 0.1 % (0-4.4); Hemoglobin 11.9 g/dL (12.0-15.0); Immature Granulocyte Absolute 0.06 K/mm3 (0.00-0.031); Immature Granulocyte Percent A 0.5 % (0-0.5); Lymphocytes Absolute Auto 1.06 K/mm3 (0.9-3.2); Lymphocytes Percent Auto 8.7 % (18.3-44.2); Mean Corpuscular HGB Conc 33.1 g/dl (32-36); Mean Corpuscular Hemoglobin 29.3 pg (26-34); Mean Corpuscular Volume 88.7 fl (80-100); Mean Platelet Volume 9.5 fl (7.4-10.4); Monocytes Absolute Auto 1.2 K/mm3 (0.1-0.6); Monocytes Percent Auto 9.5 % (2.6-8.5); Neutrophils Absolute Auto 9.8 K/mm3 (1.3-6.7); Neutrophils Percent Auto 80.9 % (45.5-73.1); Platelet Count Result 257 k/mm3 (150-375); Red Blood Count 4.06 M/mm3 (4.2-5.4); White Blood Count 12.1 K/mm3 (4.5-10.0)
--- NOTE | 2020-12-22 15:08 | PC.NURSE ---
PICC line nurse, Michael Santizo RN, from [facility] in room placing line at this time.
[2020-12-22 15:11] LABS: INR 0.9; Prothrombin Time 12.5 Seconds (11.1-14.7)
[2020-12-22 15:12] LABS: Partial Thromboplastin Time 23.7 SECONDS (22.3-36.8)
[2020-12-22 15:19] LABS: Alanine Aminotransferase 15 U/L (4-35); Albumin Level 3.7 g/dL (3.5-5.1); Alkaline Phosphatase 91 U/L (38-126); Anion Gap 10 mmol/L (8-16); Aspartate Amino Transferase 30 U/L (14-36); Bilirubin,Total 0.7 mg/dL (0.2-1.3); Blood Urea Nitrogen 38 mg/dL (7-17); Calcium 8.9 mg/dL (8.4-10.2); Carbon Dioxide 23 mmol/L (22-30); Chloride 101 mmol/L (98-107); Estimated CRCL calculation 23 ml/min; Estimated Glomerular Filt Rate 29; Glucose 221 mg/dL (65-110); Potassium 4.4 mmol/L (3.4-5.0); Sodium 134 mmol/L (137-145)
[2020-12-22 15:25] LABS: Troponin I 0.017 ng/mL (0.000-0.034)
[2020-12-22 15:26] LABS: Hemoglobin A1C 9.9 % (<5.7)
[2020-12-22 15:46] LABS: Creatine Kinase 134 U/L (30-135)
--- NOTE | 2020-12-22 16:30 | PC.NURSE ---
PICC line has been placed and verified by xray. Patient ready to go to room.
--- NOTE | 2020-12-22 17:00 | ADMGEN ---
This patient, Elsie [address], was admitted to Medical Room 248-. Patient/family oriented to hospital policies and general routines including ID bracelet, bed and alarms, visiting hours, pain management, procedures, bathroom and other care routines, personal items, smoking policy, room service/diet, and visiting hours. Information on how to activate the Rapid Response Team has been discussed. Patient/Family are encouraged to report perceived risks to care and to ask questions if they do not understand what they are told or what they should do.
[2020-12-22] MEDS: DICLOFENAC SODIUM 1% 100 GM GEL (*BKC) 1 APPLIC TOPICAL (19:31)
[2020-12-22 19:33] LABS: Glucose Point of Care 268 mg/dl (65-105)
[2020-12-22] MEDS: INSULIN ASPART (*BKC) 100 UNITS/ML SUB-Q (19:33)
[2020-12-22] MEDS: DORZOLAMIDE/TIMOLOL OPHTH SOL 10 ML BOTTLE 1 DROP EACH EYE (21:02)
[2020-12-22] MEDS: CENTRAL LINE FLUSH 10 ML IV PUSH (21:04)
[2020-12-23] VITALS (11 sets, daily range): BP systolic 147–176; BP diastolic 52–63; PULSE 56–71; RESP 17–18; TEMP 36.6; O2SAT 95–99
[2020-12-23 00:39] LABS: Glucose Point of Care 189 mg/dl (65-105)
[2020-12-23] MEDS: CENTRAL LINE FLUSH 10 ML IV PUSH ×3 (05:36→22:12)
[2020-12-23] MEDS: CENTRAL LINE FLUSH 20 ML IV PUSH (05:36)
[2020-12-23 06:32] LABS: Basophils Absolute Auto 0.1 K/mm3 (0.0-0.1); Basophils Percent Auto 0.4 % (0.2-1.2); Eosinophils Percent Auto 0.2 % (0-4.4); Hematocrit 34.9 % (37.0-47.0); Hemoglobin 11.7 g/dL (12.0-15.0); Immature Granulocyte Absolute 0.05 K/mm3 (0.00-0.031); Immature Granulocyte Percent A 0.4 % (0-0.5); Lymphocytes Absolute Auto 1.78 K/mm3 (0.9-3.2); Lymphocytes Percent Auto 14.6 % (18.3-44.2); Mean Corpuscular HGB Conc 33.5 g/dl (32-36); Mean Corpuscular Hemoglobin 29.3 pg (26-34); Mean Corpuscular Volume 87.3 fl (80-100); Mean Platelet Volume 9.5 fl (7.4-10.4); Monocytes Absolute Auto 1.6 K/mm3 (0.1-0.6); Monocytes Percent Auto 13.2 % (2.6-8.5); Neutrophils Absolute Auto 8.7 K/mm3 (1.3-6.7); Neutrophils Percent Auto 71.2 % (45.5-73.1); Platelet Count Result 220 k/mm3 (150-375); White Blood Count 12.2 K/mm3 (4.5-10.0)
[2020-12-23 07:15] LABS: Alanine Aminotransferase 15 U/L (4-35); Albumin Level 3.4 g/dL (3.5-5.1); Alkaline Phosphatase 94 U/L (38-126); Anion Gap 9 mmol/L (8-16); Aspartate Amino Transferase 27 U/L (14-36); Bilirubin,Total 0.5 mg/dL (0.2-1.3); Blood Urea Nitrogen 37 mg/dL (7-17); Calcium 8.7 mg/dL (8.4-10.2); Carbon Dioxide 24 mmol/L (22-30); Chloride 102 mmol/L (98-107); Estimated CRCL calculation 23 ml/min; Estimated Glomerular Filt Rate 29; Glucose 199 mg/dL (65-110); Lactate Dehydrogenase 431 U/L (313-618); Magnesium 1.6 mg/dL (1.6-2.3); Potassium 3.8 mmol/L (3.4-5.0); Sodium 135 mmol/L (137-145)
[2020-12-23 08:18] LABS: Glucose Point of Care 201 mg/dl (65-105)
[2020-12-23] MEDS: DICLOFENAC SODIUM 1% 100 GM GEL (*BKC) 1 APPLIC TOPICAL ×4 (08:23→22:12)
[2020-12-23] MEDS: hydroCHLOROthiazide 25 MG TABLET PO (08:23)
[2020-12-23] MEDS: ATORVASTATIN 20 MG TABLET PO (08:24)
[2020-12-23] MEDS: METOPROLOL SUCCINATE EXT REL 100 MG TABCR PO (08:24)
[2020-12-23] MEDS: DORZOLAMIDE/TIMOLOL OPHTH SOL 10 ML BOTTLE 1 DROP EACH EYE ×2 (08:25→22:12)
[2020-12-23] MEDS: INSULIN ASPART (*BKC) 100 UNITS/ML SUB-Q ×3 (08:27→17:29)
[2020-12-23] MEDS: INSULIN GLARGINE (*BKC) 100 UNITS/ML 25 UNITS SUB-Q (08:29)
--- NOTE | 2020-12-23 08:58 | PC.NURSE ---
Pt home med list shows lispro, aspart, lantus, & metformin. Spoke with both daughters and they report patient does not take fast acting insulin (neither aspart nor lispro) and she no longer takes metformin. They state she only takes Lantus.
--- NOTE | 2020-12-23 11:08 | PCPTNOTE ---
On 12/23/20, the student, Garry Begum, provided care and completed [facility] documentation on this patient. I have reviewed the student's documentation and agree with the findings.
[2020-12-23 12:06] LABS: Glucose Point of Care 302 mg/dl (65-105)
[2020-12-23] MEDS: LOSARTAN POTASSIUM 100 MG TABLET PO (12:51)
--- NOTE | 2020-12-23 16:10 | PM.IMPN ---
Progress Note: A&P Assessment and Plan (1) Acute UTI: Code(s): N39.0 - Urinary tract infection, site not specified Status: Acute Assessment and Plan: Continue with Rocephin Follow UC Hx UTI back in June, cultures +Klebsiella pneumoniae (2) Type 2 diabetes mellitus with stage 3 chronic kidney disease: Qualifiers: Diabetes mellitus president and chief commercial officer insulin use: with president and chief commercial officer use Chronic kidney disease stage 3 subtype: unspecified whether 3a or 3b Qualified Code(s): E11.22 - Type 2 diabetes mellitus with diabetic chronic kidney disease; N18.30 - Chronic kidney disease, stage 3 unspecified; Z79.4 - account maintenance representative (current) use of insulin Code(s): E11.22 - Type 2 diabetes mellitus with diabetic chronic kidney disease; N18.3 - Chronic kidney disease, stage 3 (moderate) Status: Chronic Assessment and Plan: AccuCheks AC and HS Hold metformin A1c 9.9 Monitor (3) Hyperlipidemia associated with type 2 diabetes mellitus: Code(s): E11.69 - Type 2 diabetes mellitus with other specified complication; E78.5 - Hyperlipidemia, unspecified Status: Acute Assessment and Plan: Continue with atorvastatin (4) Chronic renal insufficiency, stage III (moderate): Qualifiers: Chronic kidney disease stage 3 subtype: unspecified whether 3a or 3b Qualified Code(s): N18.30 - Chronic kidney disease, stage 3 unspecified Code(s): N18.3 - Chronic kidney disease, stage 3 (moderate) Status: Acute Assessment and Plan: Cr 1.7 Appears close to baseline Avoid nephrotoxins Renally dose all meds Monitor (5) Glaucoma: Code(s): H40.9 - Unspecified glaucoma Status: Chronic Assessment and Plan: Continue with home medications (6) Contusion of hip, left: Qualifiers: Encounter type: initial encounter Qualified Code(s): S70.02XA - Contusion of left hip, initial encounter Code(s): S70.02XA - Contusion of left hip, initial encounter Status: Acute Assessment and Plan: XRAY of hip and the pelvis and the knee no acute abnormalities Avoid NSAIDs Supportive care PT/OT Subjective Date/time seen: 12/23/20 16:10 Interval history: Pt seen and evaluated; no acute events overnight; therapy is at the bedside; pain is controlled Review of Systems Review of Systems: All systems reviewed & are unremarkable except as noted in HPI and below Exam Const: General: no acute distress, alert and awake Orientation/consciousness: patient oriented x3 HENMT: Head: normocephalic and atraumatic Ears: hearing grossly normal bilaterally and external ears normal Face and sinus: face symmetric Mouth: Yes Normal oral and palatal mucosa present Eyes: EOM: EOMs intact bilaterally Neck: Neck: full ROM, trachea midline and no JVD Resp: Effort & Inspection: normal respiratory effort Auscultation: clear to auscultation bilaterally Cardio: Jugular venous distension: no JVD Rate: regular rate Rhythm: regular rhythm Heart sounds: S1 normal heart sound present and S2 normal heart sound present GI: Inspection: normal to inspection GI Palp: Yes Soft to palpation Percussion: Yes normal to percussion Auscultation: normal bowel sounds : General: Yes no CVA tenderness Back/Spine/Pelvis: Back: no CVA tenderness Skin: General skin exam: normal color Rashes: no rashes Neuro: General: patient oriented x3 and CN's II-XI intact bilaterally Cranial nerves: Yes Equal, round and reactive pupils present Speech: normal speech Psych: Appearance: grossly normal Affect: normal affect Judgement: Good judgement present (Psych) Objective Data Vital Signs Vital Signs: Vital Signs - 24 hr 12/22/20 18:56 12/22/20 20:00 12/22/20 22:00 Temperature 37.1 C Pulse Rate 73 71 Respiratory Rate 18 20 Blood Pressure 152/77 H Pulse Oximetry 96 99 12/23/20 00:00 12/23/20 04:00 12/23/20 06:00 Temperature 36.6 C Pulse Rate 69 61 64 Respirator
[2020-12-23 16:58] LABS: Glucose Point of Care 292 mg/dl (65-105)
[2020-12-23 22:48] LABS: Glucose Point of Care 207 mg/dl (65-105)
[2020-12-24] VITALS: PULSE 61
[2020-12-24 03:40] VITALS: BP 154/52; PULSE 59; RESP 16; TEMP 36.6; O2SAT 95
[2020-12-24 04:00] VITALS: PULSE 58
[2020-12-24] MEDS: CENTRAL LINE FLUSH 10 ML IV PUSH (06:27)
[2020-12-24 07:30] LABS: Glucose Point of Care 156 mg/dl (65-105)
[2020-12-24 08:00] VITALS: BP 132/59; PULSE 63; RESP 16; TEMP 36.6; O2SAT 94
[2020-12-24] MEDS: INSULIN GLARGINE (*BKC) 100 UNITS/ML 25 UNITS SUB-Q (08:14)
[2020-12-24] MEDS: LOSARTAN POTASSIUM 100 MG TABLET PO (08:18)
[2020-12-24] MEDS: hydroCHLOROthiazide 25 MG TABLET PO (08:18)
[2020-12-24] MEDS: METOPROLOL SUCCINATE EXT REL 100 MG TABCR PO (08:19)
[2020-12-24] MEDS: ATORVASTATIN 20 MG TABLET PO (08:19)
[2020-12-24] MEDS: DICLOFENAC SODIUM 1% 100 GM GEL (*BKC) 1 APPLIC TOPICAL (08:19)
[2020-12-24] MEDS: DORZOLAMIDE/TIMOLOL OPHTH SOL 10 ML BOTTLE 1 DROP EACH EYE (08:19)
[2020-12-24 08:20] LABS: Hematocrit 34.2 % (37.0-47.0); Hemoglobin 11.1 g/dL (12.0-15.0); Mean Corpuscular HGB Conc 32.5 g/dl (32-36); Mean Corpuscular Hemoglobin 29.3 pg (26-34); Mean Corpuscular Volume 90.2 fl (80-100); Mean Platelet Volume 10.1 fl (7.4-10.4); Platelet Count Result 231 k/mm3 (150-375); Red Blood Count 3.79 M/mm3 (4.2-5.4); Red Cell Distribution Width 12.4 % (11.5-14.5); White Blood Count 12.1 K/mm3 (4.5-10.0)
[2020-12-24 08:36] LABS: Anion Gap 13 mmol/L (8-16); Blood Urea Nitrogen 51 mg/dL (7-17); Calcium 8.3 mg/dL (8.4-10.2); Carbon Dioxide 21 mmol/L (22-30); Chloride 98 mmol/L (98-107); Estimated CRCL calculation 18 ml/min; Estimated Glomerular Filt Rate 21; Glucose 226 mg/dL (65-110); Potassium 3.5 mmol/L (3.4-5.0); Sodium 132 mmol/L (137-145)
[2020-12-24] MEDS: ALTEPLASE 2 MG VIAL (CATHFLO) 4 MG IV PUSH (09:16)
--- NOTE | 2020-12-24 09:35 | WPDNEUROPN ---
Progress Note: A&P Additional Plan considering the clinical symptomatology at this time of presentation and her examination at this particular time with negative evaluation as for the neurological symptomatology is concern she is stable to be discharged if any further questions arise please do not hesitate to contact me Review of Systems Review of Systems: All systems reviewed & are unremarkable except as noted in HPI and below Exam Const: General: cooperative, healthy appearing, comfortable, no acute distress, alert and awake Nutritional Appearance: obese Orientation/consciousness: oriented to person, oriented to place and oriented to time Limitations: physical limitations HENMT: Head: normal to inspection and normocephalic Ears: hearing grossly normal bilaterally General nose exam: Normal external nose present Face and sinus: normal facial exam Mouth: Yes Normal oral and palatal mucosa present Eyes: General: appearance normal, both eyes and all related structures Visual Purdy: normal visual purdy by confrontation Alignment and Position: alignment normal Periorbital: periorbital findings normal Eyelids: eyelids normal Conjunctivae: conjunctivae normal Sclera: sclerae normal Cornea: corneas normal Pupils: Equal, round and reactive pupils present EOM: EOMs intact bilaterally Neck: Neck: full ROM and no lymphadenopathy Lymphatic: no lymphadenopathy noted Resp: Auscultation: clear to auscultation bilaterally Cardio: Rate: regular rate Rhythm: regular rhythm Neuro: General: oriented to person, oriented to place and oriented to time Cranial nerves: Yes CN's II-XII intact bilaterally Cognition (Neuro): normal cognition Speech: normal speech Gait exam (Neuro): Unable to assess gait Motor exam (neuro): 5/5 motor strength present throughout, Pronator motor function not present and No tremor noted Deep tendon reflexes (DTR's): Right triceps reflex intensity grade: 1+, Left triceps reflex intensity grade: 1+, Rt Biceps (C5, C6): 1+, Left biceps reflex intensity grade: 1+, Right brachioradialis reflex intensity grade: 1+, Left brachioradialis reflex intensity grade: 1+, Right patellar reflex intensity grade: 1+, Left patellar reflex intensity grade: 1+, Right ankle reflex intensity grade: 1+ and Left ankle reflex intensity grade: 1+ Coordination: [id number] test normal Psych: Appearance: grossly normal Mental Status: mental status grossly normal Speech and movement: Normal speech and movement present Affect: normal affect Attitude: cooperative Thought process: Normal thought process present Thought content: Yes Normal thought content present Insight: Good insight present (Psych) Judgement: Good judgement present (Psych) Objective Data Vital Signs Vital Signs: Vital Signs - 24 hr 12/23/20 12:00 12/23/20 14:00 12/23/20 16:00 Temperature 36.6 C Pulse Rate 62 71 59 L Respiratory Rate 18 Blood Pressure 165/63 H Pulse Oximetry 98 12/23/20 19:32 12/23/20 20:00 12/24/20 00:00 Temperature 36.6 C Pulse Rate 59 L 56 L 61 Respiratory Rate 17 Blood Pressure 147/52 H Pulse Oximetry 99 12/24/20 03:40 12/24/20 04:00 12/24/20 08:00 Temperature 36.6 C 36.6 C Pulse Rate 59 L 58 L 63 Respiratory Rate 16 16 Blood Pressure 154/52 H 132/59 L Pulse Oximetry 95 94 Intake/Output Intake/Output: Intake & Output 12/21/20 12/22/20 12/23/20 12/24/20 23:59 23:59 23:59 23:59 Intake Total 1670 560 Output Total 200 675 300 Balance -200 995 260 Meds/Results Medications: Active Medications Generic Name Dose Route Start Last Admin Trade Name Freq PRN Reason Stop Dose Admin Alteplase, Recombinant 4 mg 12/24/20 07:40 12/24/20 09:16 Alteplase 2 Mg Vial (Cathflo) IV PUSH 4 mg ONCE PRN Administration Line Occlusion Atorvastatin Calcium 20 mg 12/23/20 09:00 12/24/20 08:19 Atorvastatin 20 Mg Tablet PO 20 mg DAILY CELSO Administration Dextrose 12.5 gm 12/22/20 13:46
[2020-12-24 12:00] VITALS: PULSE 63
[2020-12-24] MEDS: INSULIN ASPART (*BKC) 100 UNITS/ML SUB-Q (12:02)
--- NOTE | 2020-12-24 12:25 | PM.DS ---
DS: Admitting Diagnosis Discharge Date 12/24/2020 Admitting Diagnosis Fall with weakness DS: Discharge Diagnosis Discharge Diagnosis (1) Acute UTI: Code(s): N39.0 - Urinary tract infection, site not specified Status: Acute Assessment and Plan: Continue with Rocephin UC +Escherichia Coli Hx UTI back in June, cultures +Klebsiella pneumoniae (2) Type 2 diabetes mellitus with stage 3 chronic kidney disease: Qualifiers: Diabetes mellitus half-way insulin use: with half-way use Chronic kidney disease stage 3 subtype: unspecified whether 3a or 3b Qualified Code(s): E11.22 - Type 2 diabetes mellitus with diabetic chronic kidney disease; N18.30 - Chronic kidney disease, stage 3 unspecified; Z79.4 - terminal supervisor (current) use of insulin Code(s): E11.22 - Type 2 diabetes mellitus with diabetic chronic kidney disease; N18.3 - Chronic kidney disease, stage 3 (moderate) Status: Chronic Assessment and Plan: AccuCheks AC and HS Hold metformin A1c 9.9 Monitor (3) Hyperlipidemia associated with type 2 diabetes mellitus: Code(s): E11.69 - Type 2 diabetes mellitus with other specified complication; E78.5 - Hyperlipidemia, unspecified Status: Acute Assessment and Plan: Continue with atorvastatin (4) Chronic renal insufficiency, stage III (moderate): Qualifiers: Chronic kidney disease stage 3 subtype: unspecified whether 3a or 3b Qualified Code(s): N18.30 - Chronic kidney disease, stage 3 unspecified Code(s): N18.3 - Chronic kidney disease, stage 3 (moderate) Status: Acute Assessment and Plan: Cr 1.7 Appears close to baseline Avoid nephrotoxins Renally dose all meds Monitor (5) Glaucoma: Code(s): H40.9 - Unspecified glaucoma Status: Chronic Assessment and Plan: Continue with home medications (6) Contusion of hip, left: Qualifiers: Encounter type: initial encounter Qualified Code(s): S70.02XA - Contusion of left hip, initial encounter Code(s): S70.02XA - Contusion of left hip, initial encounter Status: Acute Assessment and Plan: XRAY of hip and the pelvis and the knee no acute abnormalities Avoid NSAIDs Supportive care PT/OT DS: Summary Hospital Course Hospital Course: This is an 85-year-old female patient who lives home alone. The patient has been complaining of weakness for the last couple weeks. The patient fell approximately 2 weeks ago complaining of left knee and left hip pain. The patient went to the urgent care on 12/03/2020 and had the left hip x-rayed which showed osteoarthritis. Today the patient was sitting on the toilet felt like she was going to vomit the patient stood up to vomit in the sink when she fell over she was stuck between the toilet and the shower and her daughter was not able to lift her up and the patient was not able to ambulate. According to the daughter the patient has been had intermittent confusion since July 2020. The patient has become more forgetful as well. The patient has been using a walker for the last 2 weeks. EMS was activated today when the patient was not able to stand up. The patient has been fully vaccinated for COVID-19. She denied any fever chills nausea vomiting or chest pain. She denies any shortness of breath and complaints of left knee and left hip pain. The patient was found to be positive for UTI. Multiple attempts were made for IV insertion without success. Therefore patient was given IM Rocephin. Venous access nurse has been called for PICC line. No labs were drawn today as the patient was a difficult lab draw. Just a UA was obtained. Chest x-ray was read as no acute cardiopulmonary findings. Left knee x-ray without acute osseous findings. Anterior subcutaneous edema. Small joint effusion. Moderate ostial arthritis. Head CT read per radiology as no acute intracranial findings. Chronic age-related findings. Hip and pelvis x-
[2020-12-24 12:51] LABS: Glucose Point of Care 252 mg/dl (65-105)
[2020-12-24 14:00] VITALS: BP 134/58; PULSE 64; RESP 16; TEMP 36.6; O2SAT 95
== END 2020-12-24 16:20 | disposition home health service (06) | DRG 690 ==
LOC: ANHED 08:31 → ANH2MED 13:45
PROVIDERS: Nurse Practitioner; Nurse Practitioner Adult Health; Admitting Provider Internal Medicine Nephrology; Emergency Provider Emergency Medicine; PCP Family Medicine; Visit Provider Internal Medicine
DX: N39.0 Urinary tract infection, site not specified (principal); B96.20 Unspecified Escherichia coli [E. coli] as the cause of diseases classified elsewhere; E11.22 Type 2 diabetes mellitus with diabetic chronic kidney disease; I12.9 Hypertensive chronic kidney disease with stage 1 through stage 4 chronic kidney disease, or unspecified chronic kidney disease; N18.30 Chronic kidney disease, stage 3 unspecified; E11.69 Type 2 diabetes mellitus with other specified complication; E78.5 Hyperlipidemia, unspecified; R55 Syncope and collapse; H40.9 Unspecified glaucoma; S70.02XA Contusion of left hip, initial encounter; M16.12 Unilateral primary osteoarthritis, left hip; W18.30XA Fall on same level, unspecified, initial encounter; Z91.81 History of falling; Z79.4 Long term (current) use of insulin; Z79.899 Other long term (current) drug therapy
CPT/HCPCS: 36415; 36569; 51701; 70450; 71045; 73502; 73562; 80048; 80053; 81001; 82550; 82948; 83036; 83605; 83615; 83735; 84443; 84484; 85025; 85027; 85610; 85730; 87040; 87077; 87086; 87088; 87186; 93005; 96372; 97116; 97162; 97165; 97530; 97535; 99285; A9270; C1751; G0378; J0696; J1815; J2997

== ENCOUNTER 2021-08-06 17:46 | Emergency (ER) | payer MEDICARE, OTHER, SELFPAY ==
[2021-08-06 18:02] VITALS: BP 120/88; PULSE 66; RESP 18; TEMP 36.5; O2SAT 97
--- NOTE | 2021-08-06 18:06 | ECG_ITS ---
Measurements Intervals [place] Rate: 65 P: 54 [place]: 218 QRS: -37 QRSD: 153 T: 7 QT: 436 QTc: 456 Interpretive Statements SINUS RHYTHM WITH FIRST DEGREE AV BLOCK LEFT AXIS DEVIATION [QRS AXIS < -30] RIGHT BUNDLE BRANCH BLOCK [120+ ms QRS DURATION, UPRIGHT V1, 40+ ms S IN I/aVL/V4/V5/V6] COMPARED TO ECG 12/22/2020 09:37:55 FIRST DEGREE AV BLOCK NOW PRESENT LEFT-AXIS DEVIATION NOW PRESENT Electronically Signed On 08-07-2021 13:41:06 CDT by Carole Dixon M.D.
[2021-08-06 19:52] LABS: Basophils Absolute Auto 0.1 K/mm3 (0.0-0.1); Basophils Percent Auto 0.5 % (0.2-1.2); Eosinophils Absolute Auto 0.2 K/mm3 (0-0.3); Eosinophils Percent Auto 1.8 % (0-4.4); Hematocrit 33.3 % (37.0-47.0); Hemoglobin 10.8 g/dL (12.0-15.0); Immature Granulocyte Absolute 0.04 K/mm3 (0.00-0.031); Immature Granulocyte Percent A 0.3 % (0-0.5); Lymphocytes Absolute Auto 3.07 K/mm3 (0.9-3.2); Lymphocytes Percent Auto 25.4 % (18.3-44.2); Mean Corpuscular HGB Conc 32.4 g/dl (32-36); Mean Corpuscular Hemoglobin 29.8 pg (26-34); Mean Platelet Volume 9.4 fl (7.4-10.4); Monocytes Percent Auto 7.9 % (2.6-8.5); Neutrophils Absolute Auto 7.8 K/mm3 (1.3-6.7); Neutrophils Percent Auto 64.1 % (45.5-73.1); Platelet Count Result 282 k/mm3 (150-375); Red Blood Count 3.62 M/mm3 (4.2-5.4); Red Cell Distribution Width 12.1 % (11.5-14.5); White Blood Count 12.1 K/mm3 (4.5-10.0)
[2021-08-06 20:03] LABS: Alanine Aminotransferase 15 U/L (4-35); Albumin Level 3.9 g/dL (3.5-5.1); Alkaline Phosphatase 69 U/L (38-126); Anion Gap 8 mmol/L (8-16); Aspartate Amino Transferase 31 U/L (14-36); Bilirubin,Total 0.2 mg/dL (0.2-1.3); Blood Urea Nitrogen 55 mg/dL (7-17); Calcium 9.7 mg/dL (8.4-10.2); Carbon Dioxide 24 mmol/L (22-30); Chloride 105 mmol/L (98-107); Estimated CRCL calculation 19 ml/min; Estimated Glomerular Filt Rate 24; Glucose 214 mg/dL (65-110); Potassium 4.6 mmol/L (3.4-5.0); Sodium 137 mmol/L (137-145)
[2021-08-06 20:14] LABS: Add Urine Microscopic? YES; Appearance Urine Cloudy (Clear); Bacteria Urine 4+ /hpf; Bilirubin Urine Negative (Negative); Blood Urine Negative (Negative); Color Urine Yellow (Yellow); Glucose Urine UA Negative (Negative); Ketones Urine Negative (Negative); Leukocyte Esterase Ur 2+ LEU/UL (Negative); Mucus Urine Rare /lpf; Nitrate Urine Negative (Negative); Protein Urine 3+ mg/dL (Negative); Specific Grav Ur 1.018 (1.001-1.035); Squamous Epithelial Cell Urine Many /hpf (Few); Urobilinogen Urine Negative mg/dL (<2.0); WBC Urine >75 /hpf
--- NOTE | 2021-08-06 20:39 | ED.GENADULT ---
HPI - General Adult General Chief complaint: Urogenital-Female Stated complaint: sent by PCP for UTI treatment Time Seen by Provider: 08/06/21 19:20 Source: patient and family Mode of arrival: EMS Limitations: no limitations History of Present Illness HPI narrative: Patient sent here by her PCP after her urinalysis showed a urinary tract infection according to daughter. Daughter states that patient has been confused for the past couple days but is now back to baseline. Patient's alert and oriented on exam. Patient has no complaints at this time except for hip pain that has been ongoing for months ever since she injured it accidentally bumped into her and she fell. Patient denies any headache, dizziness, chest pain, shortness of breath, abdominal pain, nausea, vomiting, fever or chills. Related Data Home Medications Medication Instructions Recorded Confirmed dorzolamide 22.3 mg-timolol 6.8 1 drp EACH EYE BID 10/17/20 07/04/21 mg/mL eye drops Allergies Allergy/AdvReac Type Severity Reaction Status Date / Time TU Inhibitors Allergy Unknown Other Verified 07/04/21 09:55 Review of Systems Review of Systems: All systems reviewed & are unremarkable except as noted in HPI and below Constitutional: Constitutional: Denies body ache(s), Denies chills, Denies excessive sweating, Denies fatigue, Denies fever(s), Denies headache(s), Denies lethargy, Denies malaise, Denies weakness and Denies weight loss Eyes: Eyes: Denies blurry vision, Denies change in vision and Denies loss of vision ENT: Denies dizziness, Denies ear discharge, Denies headache(s), Denies lip swelling, Denies epistaxis, Denies nasal congestion, Denies neck pain, Denies throat swelling and Denies tongue swelling Cardiovascular: Cardiovascular: Denies chest pain, Denies chest pain at rest, Denies chest pain with activity, Denies diaphoresis, Denies rapid heart rate, Denies edema, Denies irregular heart rhythm, Denies lightheadedness, Denies palpitations, Denies dyspnea and Denies dyspnea on exertion Respiratory: Respiratory: Denies chest congestion, Denies cough, Denies hemoptysis, Denies dyspnea and Denies dyspnea on exertion Gastrointestinal: Gastrointestinal: Denies abdominal pain, Denies melena, Denies hematochezia, Denies diarrhea, Denies nausea, Denies vomiting and Denies hematemesis Musculoskeletal: Musculoskeletal: Denies abnormal gait, Denies deformity, Denies joint swelling, Denies limited range of motion, Denies neck pain and Denies numbness Neurologic: Denies Abnormal speech present, Denies abnormal gait, Denies confusion, Denies dizziness, Denies headache(s), Denies focal weakness, Denies loss of vision, Denies numbness, Denies Other visual disturbances, Denies Sensory deficit (Neuro) and Denies weakness Psychiatric: Psychiatric: Denies confusion, Denies depression, Denies auditory hallucinations, Denies homicidal ideation and Denies suicidal ideation Endocrine: Endocrine: Denies cold intolerance, Denies excessive sweating, Denies fatigue, Denies heat intolerance and Denies palpitations Hematologic/Lymphatic: Hematologic/Lymphatic: Denies easy bleeding and Denies easy bruising Allergic/Immunologic: Allergic/Immunologic: Denies lip swelling, Denies throat swelling and Denies tongue swelling PMFSH Past Medical History Medical History Anemia Chronic renal insufficiency, stage III (moderate) Essential hypertension FH: Parkinson's disease Glaucoma History of diverticulitis of colon Hyperlipidemia associated with type 2 diabetes mellitus Osteopenia Type 2 diabetes mellitus with stage 3 chronic kidney disease Vitamin D deficiency Surgical History Surgical History History of appendectomy History of cholecystectomy History of colectomy Due to severe diverticulitis History of colostomy reversal History of partial hysterectomy Hx of cataract ex
[2021-08-06] MEDS: SODIUM CHLORIDE 0.9% IV 1,000 ML 250 ML IV CONT (21:35)
[2021-08-06] MEDS: ACETAMINOPHEN 325 MG TABLET 650 MG PO (21:35)
[2021-08-06 21:54] VITALS: BP 180/61; PULSE 60; RESP 16; O2SAT 98
[2021-08-06 23:01] VITALS: BP 175/83; PULSE 72; RESP 18; O2SAT 99
== END 2021-08-06 23:05 | disposition home or self-care (01) ==
LOC: ANHED 21:21
PROVIDERS: Emergency Provider Emergency Medicine; PCP Family Medicine
DX: R41.82 Altered mental status, unspecified (principal); N39.0 Urinary tract infection, site not specified; E11.22 Type 2 diabetes mellitus with diabetic chronic kidney disease; I12.9 Hypertensive chronic kidney disease with stage 1 through stage 4 chronic kidney disease, or unspecified chronic kidney disease; N18.30 Chronic kidney disease, stage 3 unspecified; E78.5 Hyperlipidemia, unspecified; Z86.2 Personal history of diseases of the blood and blood-forming organs and certain disorders involving the immune mechanism; Z90.89 Acquired absence of other organs; Z90.49 Acquired absence of other specified parts of digestive tract; Z90.711 Acquired absence of uterus with remaining cervical stump
CPT/HCPCS: 36415; 80053; 81001; 85025; 87077; 87086; 87186; 93005; 96361; 96365; 99284; A9270; J0696; J7030

== ENCOUNTER 2021-11-04 14:49 | Outpatient (NON) | payer MEDICARE, OTHER, SELFPAY ==
[2021-11-10 15:38] LABS: Albumin 69 %; Measured Kappa Chains 5.43 mg/dL (<2.00); Measured Lambda Chains 3.15 mg/dL (<2.00); Pro/Creat Ratio 2819 mg/g creat (<=114); Total Kappa Chains 38.01 mg/24 h; Total Lambda Chains 22.05 mg/24 h
[2021-11-11 12:38] LABS: Protein,total, 24 Hr Ur 1638 mg/24h
== END 2021-11-04 14:50 | disposition home or self-care (01) ==
PROVIDERS: PCP Family Medicine; Visit Provider Internal Medicine Nephrology
DX: N18.32 Chronic kidney disease, stage 3b (principal)
CPT/HCPCS: 86335

== ENCOUNTER 2021-11-13 15:09 | Outpatient (CLI) | payer MEDICARE, OTHER, SELFPAY ==
--- NOTE | ~2021-11-13 | US_ITS ---
EXAMINATION: US renal BI DATE: 11/13/2021 16:08 INDICATION: ESSENTIAL HYPERTENSION;CKD STAGE 3B;DYSLIPIDEMIA TECHNIQUE: Multiple ultrasound grayscale images of the kidneys were obtained. COMPARISON: CT abdomen and pelvis 12/14/2015 FINDINGS: The right kidney measures 11.6 x 5.1 x 5.7 cm. The left kidney measures 11.5 x 5.1 x 6.5 cm. The kidn eys demonstrate normal parenchymal echogenicity and cortical thinning. 1 cm exophytic right lower rodolfo e cyst. Duplicated collecting system on the left. There is no hydronephrosis. The bladder is normal. Incidental note of liver echogenicity as can be seen with steatosis. IMPRESSION: 1. Bilateral renal cortical atrophy. Reviewed, dictated and finalized at location K.
[2021-11-13 17:27] LABS: Appearance Urine Clear (Clear); Bilirubin Urine Negative (Negative); Color Urine Yellow (Yellow); Glucose Urine UA Trace mg/dL (Negative); Ketones Urine Negative (Negative); Leukocyte Esterase Ur Negative LEU/UL (NEGATIVE); Nitrate Urine Negative (Negative); Protein Urine 3+ mg/dL (Negative); Urobilinogen Urine 0.2 mg/dL (<2.0)
[2021-11-13 17:29] LABS: Add Urine Microscopic? YES; Blood Urine Trace-Intact (Negative)
[2021-11-13 17:31] LABS: Bacteria Urine Trace /hpf; Mucus Urine Rare /lpf; RBC Urine 0-2 /hpf (0-2); Squamous Epithelial Cell Urine Occasional /hpf (Few); WBC Urine 0-3 /hpf (0-3)
[2021-11-13 17:34] LABS: Creatinine Urine 90.2 mg/dL
[2021-11-13 17:35] LABS: Hematocrit 32.2 % (37.0-47.0); Hemoglobin 10.4 g/dL (12.0-15.0); Mean Corpuscular HGB Conc 32.3 g/dl (32-36); Mean Corpuscular Hemoglobin 30.7 pg (26-34); Mean Platelet Volume 9.6 fl (7.4-10.4); Platelet Count Result 271 k/mm3 (150-375); Red Blood Count 3.39 M/mm3 (4.2-5.4); Red Cell Distribution Width 11.9 % (11.5-14.5)
[2021-11-13 17:55] LABS: Total Protein Urine Random 350 mg/dL; Ur Ttl Prot Creatinine Ratio 3.88 mg/mg (0-0.20)
[2021-11-13 19:05] LABS: Albumin Level 3.8 g/dL (3.5-5.1); Anion Gap 12 mmol/L (8-16); Blood Urea Nitrogen 64 mg/dL (7-17); Carbon Dioxide 23 mmol/L (22-30); Chloride 103 mmol/L (98-107); Estimated Glomerular Filt Rate 24; Glucose 281 mg/dL (65-110); Potassium 4.9 mmol/L (3.4-5.0); Sodium 138 mmol/L (137-145)
[2021-11-14 06:34] LABS: Complement C3 132 mg/dL (88-165)
[2021-11-18 07:27] LABS: Kappa\\Lambda Light Chains 1.72 (0.26-1.65); Lambda Light Chain 57.2 mg/L (5.7-26.3)
[2021-11-21 12:53] LABS: Complement Total CH50 52 U/mL (31-60)
== END 2021-11-13 15:10 | disposition home or self-care (01) ==
PROVIDERS: PCP Family Medicine; Visit Provider Internal Medicine Nephrology
DX: I12.9 Hypertensive chronic kidney disease with stage 1 through stage 4 chronic kidney disease, or unspecified chronic kidney disease (principal); N18.32 Chronic kidney disease, stage 3b; E78.5 Hyperlipidemia, unspecified
CPT/HCPCS: 36415; 76775; 80069; 81001; 82570; 83883; 83970; 84156; 85027; 86038; 86160; 86162; 86334

== ENCOUNTER 2022-01-23 22:18 | Inpatient (IN) | payer MEDICARE, OTHER, SELFPAY ==
--- NOTE | ~2022-01-23 | XR_ITS ---
EXAMINATION: XR hip LT 2V w AP pelvis DATE: 01/27/2022 10:58 INDICATION: Left hip pain. TECHNIQUE: An anteroposterior view of the pelvis and 2 views of left hip were obtained. COMPARISON: Pelvis and left hip radiographs 12/22/2020 FINDINGS: Bone alignment is normal. No fracture. There is mild osteoarthritis of the hips. IMPRESSION: 1. Mild osteoarthritis of the hips. Reviewed, dictated and finalized at location B.
--- NOTE | ~2022-01-23 | XR_ITS ---
EXAMINATION: XR chest 1V portable INDICATION: Altered mental status, COVID 19 positive TECHNIQUE: Portable AP chest at 2241 hours COMPARISON: 12/22/2020 FINDINGS: There are patchy opacities throughout the lungs, left greater than right. No pleural effusi on or pneumothorax. The cardiomediastinal silhouette is normal. IMPRESSION: 1. Patchy airspace opacities throughout the lungs, consistent with pneumonia versus pulmonary edema. Reviewed, dictated and finalized at location F. IMPRESSION: 1. Patchy airspace opacities throughout the lungs, consistent with pneumonia ve rsus pulmonary edema.
[2022-01-23 22:26] VITALS: BP 194/99; PULSE 90; RESP 31; TEMP 37.6; O2SAT 99
[2022-01-23] MEDS: SODIUM CHLORIDE 0.9% IV 1,000 ML 999 ML IV CONT (23:09)
[2022-01-23 23:21] LABS: Add Urine Microscopic? YES; Appearance Urine Clear (Clear); Bacteria Urine 1+ /hpf; Bilirubin Urine Negative (Negative); Blood Urine 1+ (Negative); Color Urine Yellow (Yellow); Glucose Urine UA Negative (Negative); Ketones Urine Negative (Negative); Leukocyte Esterase Ur Negative LEU/UL (Negative); Mucus Urine Rare /lpf; Nitrate Urine Negative (Negative); Protein Urine 3+ mg/dL (Negative); Specific Grav Ur 1.015 (1.001-1.035); Squamous Epithelial Cell Urine Rare /hpf (Few); Urobilinogen Urine Negative mg/dL (<2.0)
--- NOTE | 2022-01-23 23:44 | PC.NURSE ---
2310 Assumed pt care from Avril Garcia RN
[2022-01-23 23:53] LABS: SARS-CoV-2 RNA PCR Positive
[2022-01-23 23:54] LABS: Hematocrit 36.8 % (37.0-47.0); Immature Platelet Fraction Pct 1.3 % (0.9-11.2); Mean Corpuscular HGB Conc 32.6 g/dl (32-36); Mean Corpuscular Hemoglobin 32.1 pg (26-34); Mean Corpuscular Volume 98.4 fl (80-100); Mean Platelet Volume 9.9 fl (7.4-10.4); Platelet Count Result 201 k/mm3 (150-375); Red Blood Count 3.74 M/mm3 (4.2-5.4); Red Cell Distribution Width 11.3 % (11.5-14.5); White Blood Count 13.9 K/mm3 (4.5-10.0)
[2022-01-24] VITALS (9 sets, daily range): BP systolic 178–226; BP diastolic 70–104; PULSE 68–82; RESP 17–32; TEMP 36.6–37.6; O2SAT 96–98; BMI 37.8
[2022-01-24 00:11] LABS: NT Pro B Type Natriuretic Pept 1900 pg/mL (5-100)
--- NOTE | 2022-01-24 00:26 | ED.GENADULT ---
HPI - General Adult General Chief complaint: Altered Mental Status Stated complaint: AMS, COVID+ Time Seen by Provider: 01/23/22 22:19 History of Present Illness HPI narrative: Patient is an 86-year-old female who presents ER with new altered mental status. She lives at home with family is typically oriented x4. Today patient was oriented x1-2. Patient had increasing weakness and difficulty moving around. No falls. Patient had 2 home COVID test administered which came back positive. Is not known whether anybody in the home was known to be positive. Patient has no complaints at this time but also is unsure as to why she is here. Related Data Home Medications Medication Instructions Recorded Confirmed atorvastatin 20 mg tablet 20 mg PO DAILY 01/24/22 01/24/22 insulin glargine 100 unit/mL (3 28 unit subcut DAILY 01/24/22 01/24/22 mL) subcutaneous pen (Lantus Solostar U-100 Insulin) Allergies Allergy/AdvReac Type Severity Reaction Status Date / Time TU Inhibitors Allergy Unknown Other Verified 08/15/21 15:18 Review of Systems Review of Systems: ROS unobtainable: Yes unobtainable due to mental status [facility] Past Medical History Medical History (Updated 01/24/22 @ 08:03 by Rogers Zafar MD) Anemia Chronic renal disease, stage 4, severely decreased glomerular filtration rate (GFR) between 15-29 mL/min/1.73 square meter Diabetic peripheral neuropathy Essential hypertension Glaucoma History of diverticulitis of colon Hyperlipidemia associated with type 2 diabetes mellitus Osteopenia Type 2 diabetes mellitus Ventral hernia without obstruction or gangrene Vitamin D deficiency Surgical History Surgical History History of appendectomy History of cholecystectomy History of colectomy Due to severe diverticulitis History of colostomy reversal History of partial hysterectomy Hx of cataract extraction Status post ORIF of fracture of ankle Family History Family History Mother Asthma Family history of heart disease in male family member before age 55 Sibling Family history of Parkinson's disease, Onset Age: 86 Daughter Hypothyroidism Other Diabetes mellitus Social History Social History Social History: The patient lives home alone but her daughters check in on her. The patient walks with a walker. Her daughter Georgia rangel is a durable power [employer] attorney for healthcare. The patient is a full code. The patient used to smoke many years ago. 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 The patient does not use any alcohol marijuana or illicit drugs. Second hand tobacco smoke exposure: No Alcohol intake: never Substance use: never Gender identity (if verbalized by the patient): Female Spiritual care concerns: No Exam Narrative: GENERAL: Fatigued appearing, well-nourished, and in no acute distress. HEAD: Normocephalic, atraumatic. EYES: PERRL and EOMI. ENT: Mucous membranes moist. CHEST: Clear to auscultation. No respiratory distress. HEART: Regular rate and rhythm. Normal peripheral pulses. ABDOMEN: Soft, nontender, nondistended. EXTREMITIES: Normal range of motion. No edema. SKIN: Warm, dry, no rash. NEURO: Alert and oriented x2. Course Vital Signs Vital signs: Vital Signs Temperature 99.6 F 01/23/22 22:26 Pulse Rate 90 01/23/22 22:26 Respiratory Rate 31 H 01/23/22 22:26 Blood Pressure 194/99 H 01/23/22 22:26 Pulse Oximetry 99 01/23/22 22:26 Oxygen Delivery Nasal Cannula 01/23/22 22:26 Oxygen Flow Rate 2 01/23/22 22:26 Temperature 99.6 F 01/24/22 06:00 Pulse Rate 80 01/24/22 06:00 Respiratory Rate 20 01/24/22 06:00 Blood Pressure 186/104 H 01/24/22 06:00 Pulse Oximetry 96 01/24/22 06:00 Oxygen Delivery Room Air 01/24/22 04:10 Oxygen Flow Rate 2
[2022-01-24 00:32] LABS: Anisocytosis 1+ (NORMAL); Band Neutrophils Percent 1 % (0-6); Eosinophils Absolute Manual 0.41 K/mm3 (0.02-0.5); Eosinophils Percent Manual 3 % (0-4); Hypochromasia 1+ (NORMAL); Lymphocytes Absolute Manual 1.94 K/mm3 (1.1-4.5); Microcytosis 1+ (NORMAL); Monocytes Absolute Manual 0.41 K/mm3 (0.1-0.90); Monocytes Percent Manual 3 % (3-9); Myelocytes Percent 1 %; Neutrophils Absolute Manual 10.98 K/mm3 (1.7-7.2); Neutrophils Percent Manual 78 % (46-73); Platelet Estimate Adequate (Adequate); Poikilocytosis 2+ (NORMAL); Schistocytes 1+ (NORMAL); Total Cells Counted 100
[2022-01-24 00:33] LABS: Acanthocytes 1+ (NORMAL); Atypical Lymphocytes Present; Burr Cells 1+ (NORMAL); Hypersegmented Neutrophils Present; Smudge Cells MANY; Toxic Granulation Present (NORMAL)
[2022-01-24 02:09] LABS: Alanine Aminotransferase 16 U/L (6-35); Albumin Level 3.4 g/dL (3.5-5.1); Alkaline Phosphatase 72 U/L (38-126); Anion Gap 8 mmol/L (8-16); Aspartate Amino Transferase 24 U/L (14-36); Bilirubin,Total 0.4 mg/dL (0.2-1.3); Blood Urea Nitrogen 40 mg/dL (7-17); Calcium 8.4 mg/dL (8.4-10.2); Carbon Dioxide 22 mmol/L (22-30); Chloride 110 mmol/L (98-107); Estimated CRCL calculation 25 ml/min; Estimated Glomerular Filt Rate 31; Glucose 175 mg/dL (65-110); Sodium 140 mmol/L (137-145)
--- NOTE | 2022-01-24 03:55 | PC.NURSE ---
0345 Pt daughter called, updated on pt. Informed her of pt observation status admission. Pt daughter verbalized understanding and was making sure that she was ok to be alone for 10 hours during the day while her daughter is at work.
--- NOTE | 2022-01-24 04:10 | ADMGEN ---
This patient, Elsie [address], was admitted to Medical Room 345-01. Patient/family oriented to hospital policies and general routines including ID bracelet, bed and alarms, visiting hours, pain management, procedures, bathroom and other care routines, personal items, smoking policy, room service/diet, and visiting hours. Information on how to activate the Rapid Response Team has been discussed. Patient/Family are encouraged to report perceived risks to care and to ask questions if they do not understand what they are told or what they should do.
--- NOTE | 2022-01-24 04:49 | PC.NURSE ---
Attempted to call daughter/[place] at 0415 to complete admission questions. No answer, voicemail left.
[2022-01-24 06:02] LABS: Lactic Acid Reflex 1.5 mmol/L (0.7-2.0)
[2022-01-24 06:09] LABS: CRP 6.8 mg/dL (<1.0)
--- NOTE | 2022-01-24 06:13 | PM.IMHP ---
H&P: HPI History of Present Illness Date/Time: 01/24/22 06:13 Chief Complaint: New confusion Narrative: 86-year-old female with a past medical history of type 2 diabetes mellitus, hypertension, PMFSH Past Medical History Medical History (Updated 01/24/22 @ 06:32 by Telma Aquino DO) Anemia Chronic renal disease, stage 4, severely decreased glomerular filtration rate (GFR) between 15-29 mL/min/1.73 square meter Diabetic peripheral neuropathy Essential hypertension Glaucoma History of diverticulitis of colon Hyperlipidemia associated with type 2 diabetes mellitus Osteopenia Type 2 diabetes mellitus Ventral hernia without obstruction or gangrene Vitamin D deficiency Surgical History Surgical History History of appendectomy History of cholecystectomy History of colectomy Due to severe diverticulitis History of colostomy reversal History of partial hysterectomy Hx of cataract extraction Status post ORIF of fracture of ankle Family History Family History Mother Asthma Family history of heart disease in male family member before age 55 Sibling Family history of Parkinson's disease, Onset Age: 86 Daughter Hypothyroidism Other Diabetes mellitus Social History Social History Social History: The patient lives home alone but her daughters check in on her. The patient walks with a walker. Her daughter Georgia rangel is a durable power sports attorney for healthcare. The patient is a full code. The patient used to smoke many years ago. 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 The patient does not use any alcohol marijuana or illicit drugs. Second hand tobacco smoke exposure: No Alcohol intake: never Substance use: never Gender identity (if verbalized by the patient): Female Spiritual care concerns: No Meds Home Medications and Allergies Home Medications Medication Instructions Recorded Confirmed Type flash glucose scanning reader #1 ea 07/23/21 01/24/22 Rx (FreeStyle Fadi 2 [place]) hydrochlorothiazide 25 mg tablet 25 mg PO DAILY #90 tabs 09/12/21 01/24/22 Rx losartan 100 mg tablet 100 mg PO DAILY #90 tabs 09/12/21 01/24/22 Rx ergocalciferol (vitamin D2) 1,250 1,250 mcg PO WEEKLY #12 caps 10/17/21 01/24/22 Rx mcg (50,000 unit) capsule metoprolol succinate 100 mg 100 mg PO DAILY #90 tabs 12/11/21 01/24/22 Rx tablet,extended release 24 hr atorvastatin 20 mg tablet 20 mg PO DAILY 01/24/22 01/24/22 History insulin glargine 100 unit/mL (3 28 unit subcut DAILY 01/24/22 01/24/22 History mL) subcutaneous pen (Lantus Solostar U-100 Insulin) Allergies Allergy/AdvReac Type Severity Reaction Status Date / Time TU Inhibitors Allergy Unknown Other Verified 08/15/21 15:18 Vital Signs Vital Signs - 24 hr 01/23/22 22:26 01/24/22 00:53 01/24/22 01:00 Temperature 99.6 F Pulse Rate 90 82 82 Respiratory Rate 31 H 21 H 17 Blood Pressure 194/99 H 226/80 H 218/86 H Pulse Oximetry 99 98 98 Oxygen Delivery Nasal Cannula Oxygen Flow Rate 2 01/24/22 03:22 01/24/22 04:00 01/24/22 06:00 Temperature 97.8 F 99.6 F 99.6 F Pulse Rate 78 80 80 Respiratory Rate 21 H 20 20 Blood Pressure 184/83 H 225/87 H 186/104 H Pulse Oximetry 98 98 96 Oxygen Delivery Oxygen Flow Rate Exam Narrative: Weight 92.3 kg BMI 37.8 Const: Other: Obese, confused, no acute distress HENMT: Other: Mucous membranes are moist, no oral pharyngeal erythema, head is normocephalic atraumatic Eyes: Other: Pupils are equal and reactive, evidence of prior cataract extraction with lens placement, no conjunctival pallor, no scleral icterus Neck: Other: Supple, nontender, large neck circumference Resp: Other: Clear to auscultation bilaterally, no increased work of breathing Cardio: Other: Regular rate, regu
[2022-01-24 06:21] LABS: Lactate Dehydrogenase 198 U/L (120-246)
--- NOTE | 2022-01-24 07:26 | PM.IMPN ---
Progress Note: A&P Assessment and Plan (1) Pneumonia due to COVID-19 virus: Code(s): U07.1 - COVID-19; J12.82 - Pneumonia due to coronavirus disease 2019 Status: Acute Assessment and Plan: Patient is not requiring oxygen. Her temperatures are mildly elevated to 99.6. She is intermittently tachypneic. She does not fit criteria for Decadron. She has not had any hypoxia and was simply on oxygen in the ER for comfort. Oxygen was removed when the patient arrived to the medical floor and oxygen saturations are 96% on room air. LDH within normal limits, ferritin elevated, CRP 6.8, lactic acid 1.5. (2) Uncontrolled hypertension: Code(s): I10 - Essential (primary) hypertension Status: Acute Assessment and Plan: Patient's blood pressures ranged between 160s to 220 since arrival to the ER. Patient received 5 mg of IV Lopressor in blood pressures decreased to 186/104. Resumed HCTZ, losartan, and metoprolol XL. Continue IV Lopressor 5 mg q.6 hours as needed for systolic blood pressures greater than 170. (3) Acute metabolic encephalopathy: Code(s): G93.41 - Metabolic encephalopathy Status: Acute Assessment and Plan: Will continue with supportive care for the patient's COVID and monitor mental status. Patient did receive IV fluids in the ER for possible dehydration but her mucous membranes appear moist and her BUN and creatinine are actually improved from her baseline. (4) Type 2 diabetes mellitus with hyperglycemia: Qualifiers: Diabetes mellitus adjunct faculty for medical terminology insulin use: with care home use Qualified Code(s): E11.65 - Type 2 diabetes mellitus with hyperglycemia; Z79.4 - residential (current) use of insulin Code(s): E11.65 - Type 2 diabetes mellitus with hyperglycemia Status: Acute Assessment and Plan: Will continue Lantus but will decrease her dose to 20 units daily given her decreased oral intake. Moderate sliding scale insulin with Accu-Cheks a.c. HS and hypoglycemia protocol have been ordered. Plan CODE STATUS: DNR Disposition: undetermined. Time Spent With Patient Time with patient: 15 - 25 minutes Subjective Date/time seen: 01/24/22 07:26 Interval history: Patient found sleeping in bed. She is lethargic, but with open eyes to voice and light touch. She denies complaints at this time. Nursing reports the patient was awake and smiling when family was at the window. Review of Systems Review of Systems: ROS unobtainable: Yes unobtainable due to mental status Exam Narrative: General:?sitting up in the bed. No acute distress. HEENT:?Normocephalic.?Pupils equal and round. Sclera anicteric.? Oral mucosa moist.? Neck:??Supple. No JVD. Respiratory:?Scattered rhonchi in all purdy. Lung sounds with scattered rhonchi bilaterally. No wheezing or rales. Speaking in 1-2 words due to cognitive status. Cardiovascular:?Normal S1 and S2 regular rate and rhythm. No murmurs, gallops or rubs. Gastrointestinal:??Abdomen is soft, nontender, and nondistended with positive bowel sounds. Skin:??Warm and dry. Fair, no rashes. Extremities:??No cyanosis, clubbing, or edema. Radial and pedal pulses intact. Grossly normal ROM all extremities. Neurological:??Lethargic. Does not answer orientation questions. spontaneous movement of all extremities. Psychiatric:??Pleasant and cooperative with normal mood and affect.? Objective Data Vital Signs Vital Signs: Vital Signs - 24 hr 01/23/22 22:26 01/24/22 00:53 01/24/22 01:00 Temperature 99.6 F Pulse Rate 90 82 82 Respiratory Rate 31 H 21 H 17 Blood Pressure 194/99 H 226/80 H 218/86 H Pulse Oximetry 99 98 98 Oxygen Delivery Nasal Cannula Oxygen Flow Rate 2 01/24/22 03:22 01/24/22 04:00 01/24/22 06:00 Temperature 97.8 F 99.6 F 99.6 F Pulse Rate 78 80 80 Respiratory Rate 21 H 20 20 Blood Pressure 184/83 H 225/87 H 186/104 H Pulse Oximetry 98 98 96 Oxygen Delivery Oxygen Flow Ra
[2022-01-24] MEDS: LOSARTAN POTASSIUM 100 MG TABLET PO (08:46)
[2022-01-24] MEDS: METOPROLOL SUCCINATE EXT REL 100 MG TABCR PO (08:46)
[2022-01-24] MEDS: ATORVASTATIN 20 MG TABLET PO (08:46)
[2022-01-24] MEDS: hydroCHLOROthiazide 25 MG TABLET PO (08:46)
[2022-01-24] MEDS: ENOXAPARIN 40 MG/0.4 ML SYRINGE SUB-Q (08:46)
[2022-01-24 09:03] LABS: Glucose Point of Care 169 mg/dl (65-105)
[2022-01-24] MEDS: guaiFENesin 12 HR 600 MG TABCR PO ×2 (12:19→22:15)
[2022-01-24] MEDS: INSULIN ASPART (*BKC) 100 UNITS/ML SUB-Q (12:21)
[2022-01-24 12:22] LABS: Glucose Point of Care 204 mg/dl (65-105)
[2022-01-24 16:57] LABS: Glucose Point of Care 150 mg/dl (65-105)
[2022-01-24 20:35] LABS: Glucose Point of Care 167 mg/dl (65-105)
[2022-01-25 05:39] VITALS: BP 189/77; PULSE 70; RESP 22; TEMP 36.6; O2SAT 97
--- NOTE | 2022-01-25 08:21 | PM.IMPN ---
Progress Note: A&P Assessment and Plan (1) Pneumonia due to COVID-19 virus: Code(s): U07.1 - COVID-19; J12.82 - Pneumonia due to coronavirus disease 2018 Status: Acute Assessment and Plan: Patient is not requiring oxygen. Her temperatures are mildly elevated to 99.6 on admission with intermittently tachypneic. She does not fit criteria for Decadron. She has not had any hypoxia and was simply on oxygen in the ER for comfort. Oxygen was removed when the patient arrived to the medical floor and oxygen saturations are 96% on room air. LDH within normal limits, ferritin elevated, CRP 6.8, lactic acid 1.5. 01/25/22 Stable. No supplmental O2 requirements or respiratory complaints at this time. Continue COVID19 specific isolation and check immunization status with family. No antibiotic therapy needed at this time. On lovenox for DVT prophylaxis. (2) Uncontrolled hypertension: Code(s): I10 - Essential (primary) hypertension Status: Acute Assessment and Plan: Patient's blood pressures ranged between 160s to 220 on arrival to the ER. Patient received 5 mg of IV Lopressor in blood pressures decreased to 186/104. Resumed HCTZ, losartan, and metoprolol XL. Continue IV Lopressor 5 mg q.6 hours as needed for systolic blood pressures greater than 170. 01/25/22 BP 148/63, HR 72. Stable. Continue current medications. (3) Acute metabolic encephalopathy: Code(s): G93.41 - Metabolic encephalopathy Status: Acute Assessment and Plan: Will continue with supportive care for the patient's COVID and monitor mental status. Patient did receive IV fluids in the ER for possible dehydration but her mucous membranes appear moist and her BUN and creatinine are actually improved from her baseline. Improving. (4) Type 2 diabetes mellitus with hyperglycemia: Qualifiers: Diabetes mellitus termite treater helper insulin use: with termite treater helper use Qualified Code(s): E11.65 - Type 2 diabetes mellitus with hyperglycemia; Z79.4 - exterminator (current) use of insulin Code(s): E11.65 - Type 2 diabetes mellitus with hyperglycemia Status: Acute Assessment and Plan: Will continue Lantus but will decrease her dose to 20 units daily given her decreased oral intake. Moderate sliding scale insulin with Accu-Cheks a.c. HS and hypoglycemia protocol have been ordered. 01/25/22 patient is more alert and eating today. Glucose 242 this afternoon. Increase lantus 28 units daily, which is home dose. (5) Acute UTI: Code(s): N39.0 - Urinary tract infection, site not specified Status: Acute Assessment and Plan: UA +WBC and bacteria. urine culture with 100,000 CFU e.coli. Will start cefdinir 300 mg PO daily (renal dose) due to worsening lethargy and confusion, per family (6) Chronic renal insufficiency, stage III (moderate): Qualifiers: Chronic kidney disease stage 3 subtype: unspecified whether 3a or 3b Qualified Code(s): N18.30 - Chronic kidney disease, stage 3 unspecified Code(s): N18.3 - Chronic kidney disease, stage 3 (moderate) Status: Chronic Assessment and Plan: Baseline 47-64, creatinine 1.6 to 2.0, GFR 21 to 29 Renal function at baseline. Patient sees Dr. Mccauley outpatient. We will consult if renal function worsens. Monitor strict I/O Avoid nephrotoxic agents. Plan CODE STATUS: DNR Disposition: undetermined. Time Spent With Patient Time with patient: 15 - 25 minutes Subjective Date/time seen: 01/25/22 08:21 Patient sitting up in the chair. She denies complaints of chest pain, shortness of breath, dyspnea, cough, rhinorrhea, headache, abd pain, N/V/D or dysuria. No flank pain. Nursing reports the patient worked with physical therapy and did well today. Family spoke with [facility], but will defer for now pending more family discussion. Family would like the patient to go to rehab. Review of Systems Review of [employer]
[2022-01-25 08:46] LABS: Glucose Point of Care 164 mg/dl (65-105)
[2022-01-25] MEDS: CEFDINIR 300 MG CAPSULE PO (10:00)
[2022-01-25] MEDS: ATORVASTATIN 20 MG TABLET PO (10:00)
[2022-01-25 10:01] VITALS: PULSE 80
[2022-01-25] MEDS: LOSARTAN POTASSIUM 100 MG TABLET PO (10:01)
[2022-01-25] MEDS: guaiFENesin 12 HR 600 MG TABCR PO ×2 (10:01→20:43)
[2022-01-25] MEDS: hydroCHLOROthiazide 25 MG TABLET PO (10:01)
[2022-01-25] MEDS: METOPROLOL SUCCINATE EXT REL 100 MG TABCR PO (10:01)
[2022-01-25 12:17] LABS: Glucose Point of Care 242 mg/dl (65-105)
[2022-01-25] MEDS: INSULIN ASPART (*BKC) 100 UNITS/ML SUB-Q ×2 (12:57→17:51)
[2022-01-25 14:00] VITALS: BP 148/63; PULSE 72; RESP 20; TEMP 36.4; O2SAT 97
[2022-01-25 17:29] LABS: Glucose Point of Care 216 mg/dl (65-105)
[2022-01-25 20:39] VITALS: BP 153/64; PULSE 70; RESP 20; TEMP 36.5; O2SAT 97
[2022-01-26 00:34] LABS: Glucose Point of Care 191 mg/dl (65-105)
[2022-01-26 05:12] VITALS: BP 150/64; PULSE 67; RESP 20; TEMP 36.6; O2SAT 97
[2022-01-26 08:44] LABS: Glucose Point of Care 177 mg/dl (65-105)
[2022-01-26 09:04] VITALS: PULSE 98
[2022-01-26] MEDS: ATORVASTATIN 20 MG TABLET PO (09:04)
[2022-01-26] MEDS: METOPROLOL SUCCINATE EXT REL 100 MG TABCR PO (09:04)
[2022-01-26] MEDS: CEFDINIR 300 MG CAPSULE PO (09:04)
[2022-01-26] MEDS: SENNA/DOCUSATE SODIUM TABLET 1 TAB PO ×2 (09:04→17:28)
[2022-01-26] MEDS: guaiFENesin 12 HR 600 MG TABCR PO ×2 (09:04→20:54)
[2022-01-26] MEDS: hydroCHLOROthiazide 25 MG TABLET PO (09:04)
[2022-01-26] MEDS: INSULIN GLARGINE (*BKC) 100 UNITS/ML 28 UNITS SUB-Q (09:05)
[2022-01-26] MEDS: LOSARTAN POTASSIUM 100 MG TABLET PO (09:05)
[2022-01-26] MEDS: ENOXAPARIN 40 MG/0.4 ML SYRINGE SUB-Q (09:05)
[2022-01-26 11:44] LABS: Basophils Percent Auto 0.4 % (0.2-1.2); Eosinophils Absolute Auto 0.2 K/mm3 (0-0.3); Eosinophils Percent Auto 1.9 % (0-4.4); Hematocrit 32.3 % (37.0-47.0); Hemoglobin 11.3 g/dL (12.0-15.0); Immature Granulocyte Absolute 0.07 K/mm3 (0.00-0.031); Immature Granulocyte Percent A 0.6 % (0-0.5); Lymphocytes Absolute Auto 1.52 K/mm3 (0.9-3.2); Lymphocytes Percent Auto 13.9 % (18.3-44.2); Mean Corpuscular Hemoglobin 31.2 pg (26-34); Mean Corpuscular Volume 89.2 fl (80-100); Mean Platelet Volume 9.7 fl (7.4-10.4); Monocytes Absolute Auto 1.1 K/mm3 (0.1-0.6); Monocytes Percent Auto 10.1 % (2.6-8.5); Neutrophils Percent Auto 73.1 % (45.5-73.1); Platelet Count Result 256 k/mm3 (150-375); Red Blood Count 3.62 M/mm3 (4.2-5.4); Red Cell Distribution Width 11.7 % (11.5-14.5); White Blood Count 10.9 K/mm3 (4.5-10.0)
[2022-01-26] MEDS: INSULIN ASPART (*BKC) 100 UNITS/ML SUB-Q ×2 (11:58→17:28)
[2022-01-26 12:06] LABS: Glucose Point of Care 305 mg/dl (65-105)
[2022-01-26 12:10] LABS: Albumin Level 3.7 g/dL (3.5-5.1); Anion Gap 15 mmol/L (8-16); Blood Urea Nitrogen 53 mg/dL (7-17); Calcium 8.5 mg/dL (8.4-10.2); Carbon Dioxide 19 mmol/L (22-30); Chloride 100 mmol/L (98-107); Estimated CRCL calculation 20 ml/min; Estimated Glomerular Filt Rate 24; Glucose 325 mg/dL (65-110); Magnesium 1.6 mg/dL (1.6-2.3); Phosphorus 3.7 mg/dL (2.5-4.5); Potassium 3.9 mmol/L (3.4-5.0); Sodium 134 mmol/L (137-145)
--- NOTE | 2022-01-26 12:37 | PM.IMPN ---
Progress Note: A&P Assessment and Plan (1) Pneumonia due to COVID-19 virus: Code(s): U07.1 - COVID-19; J12.82 - Pneumonia due to coronavirus disease 2019 Status: Acute Assessment and Plan: Patient not requiring supplemental oxygen. Her temperatures are mildly elevated to 99.6 on admission with intermittently tachypneic. She does not fit criteria for Decadron. She has not had any hypoxia and was simply on oxygen in the ER for comfort. LDH within normal limits, ferritin elevated, CRP 6.8, lactic acid 1.5. 01/25/22 Stable. No supplmental O2 requirements or respiratory complaints at this time. Continue COVID19 specific isolation and check immunization status with family. No antibiotic therapy needed at this time. On lovenox for DVT prophylaxis. 01/26/22 no supplemental oxygen. stable (2) Uncontrolled hypertension: Code(s): I10 - Essential (primary) hypertension Status: Acute Assessment and Plan: Patient's blood pressures ranged between 160s to 220 on arrival to the ER. Patient received 5 mg of IV Lopressor in blood pressures decreased to 186/104. Resumed HCTZ, losartan, and metoprolol XL. Continue IV Lopressor 5 mg q.6 hours as needed for systolic blood pressures greater than 170. 01/25/22 BP 148/63, HR 72. Stable. Continue current medications. 01/26/22 BP 150/64, HR 67, stable. No medication changes. (3) Acute metabolic encephalopathy: Code(s): G93.41 - Metabolic encephalopathy Status: Acute Assessment and Plan: Secondary to acute illness. Continue with supportive care for the patient's COVID and monitor mental status. Improving. Appears at baseline cognitive status. (4) Type 2 diabetes mellitus with hyperglycemia: Qualifiers: Diabetes mellitus assisted insulin use: with assisted use Qualified Code(s): E11.65 - Type 2 diabetes mellitus with hyperglycemia; Z79.4 - healthcare recruiter (current) use of insulin Code(s): E11.65 - Type 2 diabetes mellitus with hyperglycemia Status: Chronic Assessment and Plan: Hold any oral antidiabetic medications. Accu-Cheks a.c. HS and hypoglycemia protocol have been ordered. 01/25/22 patient is more alert and eating today. Glucose 242 this afternoon. Increase lantus 28 units daily, which is home dose. 01/26/22 glucose>300. increase to high dose insulin sliding scale with meals. (5) Acute UTI: Code(s): N39.0 - Urinary tract infection, site not specified Status: Acute Assessment and Plan: UA +WBC and bacteria. urine culture with 100,000 CFU e.coli. Will start cefdinir 300 mg PO daily (renal dose) due to worsening lethargy and confusion, per family 01/26/22 Antibiotics day 2, continue cefdinir 300 mg PO daily x 7 days total. (6) Chronic renal insufficiency, stage III (moderate): Qualifiers: Chronic kidney disease stage 3 subtype: unspecified whether 3a or 3b Qualified Code(s): N18.30 - Chronic kidney disease, stage 3 unspecified Code(s): N18.3 - Chronic kidney disease, stage 3 (moderate) Status: Chronic Assessment and Plan: Baseline 47-64, creatinine 1.6 to 2.0, GFR 21 to 29 Renal function at baseline. Patient sees Dr. Mccauley outpatient. Monitor strict I/O Avoid nephrotoxic agents. 01/26/22 BUN 53, creatinine 2.0 within baseline, sodium 138 (corrected for hyperglycemia), potassium 3.9, chloride 100, TCO2 19, magnesium 1.6, phos 3.7, calcium 8.5. Encourage oral water intake. (7) Constipation: Code(s): K59.00 - Constipation, unspecified Status: Acute Assessment and Plan: Start senna-plus 1 tab BID and Miralax daily Plan CODE STATUS: DNR Disposition: plan for SNF placement. Patient is medically stable for discharge. Awaiting SNF authorization. Time Spent With Patient Time with patient: 15 - 25 minutes Subjective Date/time seen: 01/26/22 12:37 Patient sitting up in the chair. She reports that she h
[2022-01-26 14:51] LABS: Hemoglobin A1C 7.9 % (<5.7)
[2022-01-26] MEDS: polyethylene glycoL 3350 17 GM POWD.PACK PO (17:28)
[2022-01-26 17:31] LABS: Glucose Point of Care 255 mg/dl (65-105)
[2022-01-26 17:36] VITALS: BP 160/73; PULSE 74; RESP 16; TEMP 36.4; O2SAT 97
[2022-01-26 18:45] VITALS: BP 168/76
[2022-01-26 18:47] VITALS: BP 156/57
[2022-01-26 20:50] VITALS: BP 158/84; PULSE 88; RESP 20; TEMP 36.8; O2SAT 97
[2022-01-26 21:11] LABS: Glucose Point of Care 185 mg/dl (65-105)
[2022-01-27 01:48] VITALS: O2SAT 97
[2022-01-27 05:55] VITALS: BP 130/78; PULSE 73; RESP 16; TEMP 36.9; O2SAT 95
[2022-01-27 05:59] LABS: Anion Gap 13 mmol/L (8-16); Blood Urea Nitrogen 53 mg/dL (7-17); Calcium 8.3 mg/dL (8.4-10.2); Carbon Dioxide 24 mmol/L (22-30); Chloride 101 mmol/L (98-107); Estimated CRCL calculation 22 ml/min; Estimated Glomerular Filt Rate 27; Glucose 157 mg/dL (65-110); Potassium 3.6 mmol/L (3.4-5.0); Sodium 138 mmol/L (137-145)
[2022-01-27 07:35] LABS: Glucose Point of Care 160 mg/dl (65-105)
[2022-01-27] MEDS: polyethylene glycoL 3350 17 GM POWD.PACK PO (09:21)
[2022-01-27] MEDS: CEFDINIR 300 MG CAPSULE PO (09:21)
[2022-01-27] MEDS: LOSARTAN POTASSIUM 100 MG TABLET PO (09:21)
[2022-01-27 09:22] VITALS: PULSE 73
[2022-01-27] MEDS: ATORVASTATIN 20 MG TABLET PO (09:22)
[2022-01-27] MEDS: ENOXAPARIN 40 MG/0.4 ML SYRINGE SUB-Q (09:22)
[2022-01-27] MEDS: INSULIN GLARGINE (*BKC) 100 UNITS/ML 28 UNITS SUB-Q (09:22)
[2022-01-27] MEDS: hydroCHLOROthiazide 25 MG TABLET PO (09:22)
[2022-01-27] MEDS: SENNA/DOCUSATE SODIUM TABLET 1 TAB PO ×2 (09:22→17:28)
[2022-01-27] MEDS: METOPROLOL SUCCINATE EXT REL 100 MG TABCR PO (09:22)
[2022-01-27] MEDS: guaiFENesin 12 HR 600 MG TABCR PO ×2 (09:22→20:44)
[2022-01-27 09:58] VITALS: BMI 10.0
[2022-01-27 11:46] LABS: Glucose Point of Care 221 mg/dl (65-105)
--- NOTE | 2022-01-27 12:08 | PM.IMPN ---
Progress Note: A&P Assessment and Plan (1) Pneumonia due to COVID-19 virus: Code(s): U07.1 - COVID-19; J12.82 - Pneumonia due to coronavirus disease 2019 Status: Acute Assessment and Plan: Patient not requiring supplemental oxygen. Her temperatures are mildly elevated to 99.6 on admission with intermittently tachypneic. She does not fit criteria for Decadron. She has not had any hypoxia and was simply on oxygen in the ER for comfort. LDH within normal limits, ferritin elevated, CRP 6.8, lactic acid 1.5. 01/25/22 Stable. No supplmental O2 requirements or respiratory complaints at this time. Continue COVID19 specific isolation and check immunization status with family. No antibiotic therapy needed at this time. On lovenox for DVT prophylaxis. 01/26/22 no supplemental oxygen. stable 01/27/22 stable. Add fluticasone nasal spray and saline spray. Supportive care. (2) Uncontrolled hypertension: Code(s): I10 - Essential (primary) hypertension Status: Acute Assessment and Plan: Patient's blood pressures ranged between 160s to 220 on arrival to the ER. Patient received 5 mg of IV Lopressor in blood pressures decreased to 186/104. Resumed HCTZ, losartan, and metoprolol XL. Continue IV Lopressor 5 mg q.6 hours as needed for systolic blood pressures greater than 170. 01/25/22 BP 148/63, HR 72. Stable. Continue current medications. 01/26/22 BP 150/64, HR 67, stable. No medication changes. 01/27/22 stable. continue current medications. (3) Acute metabolic encephalopathy: Code(s): G93.41 - Metabolic encephalopathy Status: Acute Assessment and Plan: Secondary to acute illness. Continue with supportive care for the patient's COVID and monitor mental status. Improving. Appears at baseline cognitive status. (4) Type 2 diabetes mellitus with hyperglycemia: Qualifiers: Diabetes mellitus longterm insulin use: with longterm use Qualified Code(s): E11.65 - Type 2 diabetes mellitus with hyperglycemia; Z79.4 - terminal press operator (current) use of insulin Code(s): E11.65 - Type 2 diabetes mellitus with hyperglycemia Status: Chronic Assessment and Plan: Hold any oral antidiabetic medications. Accu-Cheks a.c. HS and hypoglycemia protocol have been ordered. 01/25/22 patient is more alert and eating today. Glucose 242 this afternoon. Increase lantus 28 units daily, which is home dose. 01/26/22 glucose>300. increase to high dose insulin sliding scale with meals. 01/27/22 glucose 141-221 today. Continue current insulin therapy. (5) Acute UTI: Code(s): N39.0 - Urinary tract infection, site not specified Status: Acute Assessment and Plan: UA +WBC and bacteria. urine culture with 100,000 CFU e.coli. Will start cefdinir 300 mg PO daily (renal dose) due to worsening lethargy and confusion, per family 01/26/22 Antibiotics day 2, continue cefdinir 300 mg PO daily x 7 days total. 01/27/22 antibiotic day 3. (6) Chronic renal insufficiency, stage III (moderate): Qualifiers: Chronic kidney disease stage 3 subtype: unspecified whether 3a or 3b Qualified Code(s): N18.30 - Chronic kidney disease, stage 3 unspecified Code(s): N18.3 - Chronic kidney disease, stage 3 (moderate) Status: Chronic Assessment and Plan: Baseline 47-64, creatinine 1.6 to 2.0, GFR 21 to 29 Renal function at baseline. Patient sees Dr. Mccauley outpatient. Monitor strict I/O Avoid nephrotoxic agents. 01/26/22 BUN 53, creatinine 2.0 within baseline, sodium 138 (corrected for hyperglycemia), potassium 3.9, chloride 100, TCO2 19, magnesium 1.6, phos 3.7, calcium 8.5. Encourage oral water intake. Stable. (7) Constipation: Qualifiers: Constipation type: drug induced constipation Qualified Code(s): K59.03 - Drug induced constipation Code(s): K59.00 - Constipation, unspecified Status: Acute Assessment and Plan
[2022-01-27] MEDS: BISACODYL 10 MG SUPPOSITORY RECTAL (12:43)
[2022-01-27] MEDS: ACETAMINOPHEN 325 MG TABLET 650 MG PO (12:50)
[2022-01-27] MEDS: INSULIN ASPART (*BKC) 100 UNITS/ML SUB-Q (12:51)
[2022-01-27 14:00] VITALS: BP 154/57; PULSE 73; RESP 22; TEMP 36.3; O2SAT 98
[2022-01-27 16:37] LABS: Glucose Point of Care 141 mg/dl (65-105)
[2022-01-27] MEDS: FLUTICASONE PROPIONATE 0.05% NA SPR 16 GM BTL (*BKC) 1 SPRAY NASAL (20:30)
[2022-01-27 20:57] VITALS: BP 156/68; PULSE 78; RESP 18; TEMP 36.6; O2SAT 96
[2022-01-27 21:37] LABS: Glucose Point of Care 213 mg/dl (65-105)
[2022-01-28 04:39] VITALS: BP 155/78; PULSE 63; RESP 20; TEMP 36.1; O2SAT 99
[2022-01-28 08:23] LABS: Glucose Point of Care 138 mg/dl (65-105)
[2022-01-28 08:43] VITALS: PULSE 63
[2022-01-28] MEDS: CEFDINIR 300 MG CAPSULE PO (08:43)
[2022-01-28] MEDS: METOPROLOL SUCCINATE EXT REL 100 MG TABCR PO (08:43)
[2022-01-28] MEDS: SENNA/DOCUSATE SODIUM TABLET 1 TAB PO (08:44)
[2022-01-28] MEDS: polyethylene glycoL 3350 17 GM POWD.PACK PO (08:44)
[2022-01-28] MEDS: ATORVASTATIN 20 MG TABLET PO (08:44)
[2022-01-28] MEDS: ENOXAPARIN 40 MG/0.4 ML SYRINGE SUB-Q (08:44)
[2022-01-28] MEDS: INSULIN GLARGINE (*BKC) 100 UNITS/ML 28 UNITS SUB-Q (08:44)
[2022-01-28] MEDS: LOSARTAN POTASSIUM 100 MG TABLET PO (08:44)
[2022-01-28] MEDS: hydroCHLOROthiazide 25 MG TABLET PO (08:44)
[2022-01-28] MEDS: guaiFENesin 12 HR 600 MG TABCR PO (08:44)
[2022-01-28] MEDS: FLUTICASONE PROPIONATE 0.05% NA SPR 16 GM BTL (*BKC) 1 SPRAY NASAL (08:45)
[2022-01-28] MEDS: LIDOCAINE 5% PATCH 1 PATCH TRANSDERM (08:45)
[2022-01-28 12:32] LABS: Glucose Point of Care 254 mg/dl (65-105)
[2022-01-28] MEDS: INSULIN ASPART (*BKC) 100 UNITS/ML SUB-Q (12:58)
[2022-01-28 14:00] VITALS: BP 150/70; PULSE 76; RESP 16; TEMP 36.1; O2SAT 97
--- NOTE | 2022-01-28 14:08 | PM.DS ---
DS: Admitting Diagnosis Discharge Date 01/28/2022 1409 Admitting Diagnosis COVID19 pneumonia Uncontrolled hypertension Acute metabolic encephalopathy Type 2 diabetes mellitus with hyperglycemia DS: Discharge Diagnosis Discharge Diagnosis (1) Pneumonia due to COVID-19 virus: Code(s): U07.1 - COVID-19; J12.82 - Pneumonia due to coronavirus disease 2019 Status: Acute Assessment and Plan: Patient not requiring supplemental oxygen. Her temperatures are mildly elevated to 99.6 on admission with intermittently tachypneic. She does not fit criteria for Decadron. She has not had any hypoxia and was simply on oxygen in the ER for comfort. LDH within normal limits, ferritin elevated, CRP 6.8, lactic acid 1.5. 01/25/22 Stable. No supplmental O2 requirements or respiratory complaints at this time. Continue COVID19 specific isolation and check immunization status with family. No antibiotic therapy needed at this time. On lovenox for DVT prophylaxis. 01/26/22 no supplemental oxygen. stable 01/27/22 stable. Add fluticasone nasal spray and saline spray. Supportive care. (2) Uncontrolled hypertension: Code(s): I10 - Essential (primary) hypertension Status: Acute Assessment and Plan: Patient's blood pressures ranged between 160s to 220 on arrival to the ER. Patient received 5 mg of IV Lopressor in blood pressures decreased to 186/104. Resumed HCTZ, losartan, and metoprolol XL. Continue IV Lopressor 5 mg q.6 hours as needed for systolic blood pressures greater than 170. 01/25/22 BP 148/63, HR 72. Stable. Continue current medications. 01/26/22 BP 150/64, HR 67, stable. No medication changes. NO IV metoprolol given in past 24 hours. 01/27/22 stable. continue current medications. (3) Acute metabolic encephalopathy: Code(s): G93.41 - Metabolic encephalopathy Status: Acute Assessment and Plan: Secondary to acute illness. Continue with supportive care for the patient's COVID and monitor mental status. Improving. Appears at baseline cognitive status. (4) Type 2 diabetes mellitus with hyperglycemia: Qualifiers: Diabetes mellitus residential insulin use: with intermediate accountant use Qualified Code(s): E11.65 - Type 2 diabetes mellitus with hyperglycemia; Z79.4 - FDC (current) use of insulin Code(s): E11.65 - Type 2 diabetes mellitus with hyperglycemia Status: Chronic Assessment and Plan: Hold any oral antidiabetic medications. Accu-Cheks a.c. HS and hypoglycemia protocol have been ordered. 01/25/22 patient is more alert and eating today. Glucose 242 this afternoon. Increase lantus 28 units daily, which is home dose. 01/26/22 glucose>300. increase to high dose insulin sliding scale with meals. 01/27/22 glucose 141-221 today. Continue current insulin therapy. (5) Acute UTI: Code(s): N39.0 - Urinary tract infection, site not specified Status: Acute Assessment and Plan: UA +WBC and bacteria. urine culture with 100,000 CFU e.coli. Will start cefdinir 300 mg PO daily (renal dose) due to worsening lethargy and confusion, per family 01/26/22 Antibiotics day 2, continue cefdinir 300 mg PO daily x 7 days total. 01/27/22 antibiotic day 3. (6) Chronic renal insufficiency, stage III (moderate): Qualifiers: Chronic kidney disease stage 3 subtype: unspecified whether 3a or 3b Qualified Code(s): N18.30 - Chronic kidney disease, stage 3 unspecified Code(s): N18.3 - Chronic kidney disease, stage 3 (moderate) Status: Chronic Assessment and Plan: Baseline 47-64, creatinine 1.6 to 2.0, GFR 21 to 29 Renal function at baseline. Patient sees Dr. Mccauley outpatient. Monitor strict I/O Avoid nephrotoxic agents. 01/26/22 BUN 53, creatinine 2.0 within baseline, sodium 138 (corrected for hyperglycemia), potassium 3.9, chloride 100, TCO2 19, magnesium 1.6, phos 3.7, calcium 8.5. Encourage oral water intake. St
[2022-01-28 17:01] LABS: Glucose Point of Care 140 mg/dl (65-105)
== END 2022-01-28 17:42 | disposition swing bed (61) | DRG 177 ==
LOC: ANHED 23:32 → ANH3MED 01-24 03:01
PROVIDERS: Admitting Provider Internal Medicine; Emergency Provider Emergency Medicine; PCP Family Medicine; Visit Provider Nurse Practitioner Family
DX: U07.1 COVID-19 (principal); G93.41 Metabolic encephalopathy; J12.82 Pneumonia due to coronavirus disease 2019; N39.0 Urinary tract infection, site not specified; N18.4 Chronic kidney disease, stage 4 (severe); W19.XXXA Unspecified fall, initial encounter; M25.552 Pain in left hip; B96.20 Unspecified Escherichia coli [E. coli] as the cause of diseases classified elsewhere; E11.42 Type 2 diabetes mellitus with diabetic polyneuropathy; E11.65 Type 2 diabetes mellitus with hyperglycemia; E11.22 Type 2 diabetes mellitus with diabetic chronic kidney disease; E78.5 Hyperlipidemia, unspecified; E55.9 Vitamin D deficiency, unspecified; H40.9 Unspecified glaucoma; I12.9 Hypertensive chronic kidney disease with stage 1 through stage 4 chronic kidney disease, or unspecified chronic kidney disease; K59.00 Constipation, unspecified; M85.80 Other specified disorders of bone density and structure, unspecified site; Z87.891 Personal history of nicotine dependence; Z79.4 Long term (current) use of insulin; Z90.49 Acquired absence of other specified parts of digestive tract; Z90.710 Acquired absence of both cervix and uterus; Z98.49 Cataract extraction status, unspecified eye
CPT/HCPCS: 36415; 51701; 71045; 73502; 80048; 80053; 80069; 81001; 82728; 82948; 83036; 83605; 83615; 83735; 83880; 85025; 85055; 86140; 87077; 87086; 87186; 96360; 96361; 97110; 97161; 97165; 97530; 97535; 99285; A9270; C9803; G0378; J1650; J1815; J7030; U0003; U0005

== ENCOUNTER 2022-01-28 18:40 | Inpatient (IN) | payer MEDICARE, OTHER, SELFPAY ==
--- NOTE | ~2022-01-28 | MR_ITS ---
EXAMINATION: MR hip LT wo con DATE: 02/06/2022 08:32 INDICATION: Left hip pain post fall TECHNIQUE: Magnetic resonance imaging (MRI) of the left hip was performed without intravenous contra st. Sequences included full-field axial PD-weighted FS FSE and T1-weighted FSE, coronal of the pelvis with PD-weighted FS FSE, small field of view of the left hip with axial PD-weighted FS FSE, sagitta l PD-weighted FS FSE and coronal PD weighted FS FSE. Additional radial T1-weighted FGR oriented ortho gonal to the acetabular rim were obtained for evaluation of the labrum. COMPARISON: None FINDINGS: Bones/labrum/cartilage: There are edema surrounding a nondisplaced avulsion fracture involving the left gluteus medius footpl ate at the proximal aspect of the left greater trochanter. The left gluteus minimus footplate does no t appear to be included within the fracture fragment. No evident involvement of the weightbearing axi s of the femur. Otherwise normal marrow signal. No other fractures or pathologic marrow replacing pro cess. Labrum is normal. Articular cartilage is normal. Fluid: Symmetric physiologic amount of fluid within both hip joints. Small amount of fluid in the left troch anteric bursa most likely hematoma related to the underlying avulsion fracture. Mild increased fluid signal overlying the right greater trochanter consistent with mild right trochanteric bursitis. Mild increased fluid signal at the left ischial tuberosity consistent with mild left ischial bursitis. Soft tissues: Normal and symmetric muscle bulk and signal in the pelvis and visualized proximal thighs. Mild tendin opathy without discrete tear at the bilateral proximal hamstring tendons and at the left gluteus medi us and minimus tendons. Right gluteal tendons and bilateral iliopsoas tendons are normal. 0.5 cm righ t adnexal cyst. Limited evaluation of visceral organs of the pelvis is otherwise unremarkable. Suscep tibility artifact along a an infraumbilical midline abdominal wound surgical scar. Very small fat-con taining umbilical hernia. No pathologically enlarged pelvic/inguinal lymphadenopathy. IMPRESSION: 1. Nondisplaced avulsion fracture across the cephalad aspect of the left greater trochanter involving the footplate of the gluteus medius tendon. Reviewed, dictated and finalized at location A. IMPRESSION: 1. Nondisplaced avulsion fracture across the cephalad aspect of the left greate r trochanter involving the footplate of the gluteus medius tendon.
[2022-01-28 18:49] VITALS: BP 185/95; PULSE 17; RESP 17; TEMP 36.3; O2SAT 96; BMI 34.9
--- OUTSIDE RECORDS SUMMARY | 2022-01-28 18:50 | XMS_ITS ---
:1935 Author Care Team Providers Name Role Phone LUIS MIGUEL ROBERTS MD Primary Care Provider [phone] Allergies Code Code System Name Reaction Severity Status Onset NKDA ? Medications Name Status Start Date Stop Date ? ? atorvastatin 20 mg tablet Active ? Not av ailable TAKE 1 TABLET BY MOUTH DAILY BD Ultra-Fine Mini Pen Needle 31 gauge x 06/26 Active ? Not available USE DIRECTED FOUR TIMES DAILY cefdinir 300 mg capsule Completed ? 01/16/20 TAKE 1 CAPSULE BY MOUTH EVERY 12 HOURS ciprofloxacin 500 mg tablet Completed ? 08/2020 TAKE 1 TABLET BY MOUTH EVERY 12 HOURS FOR 4 DAYS Dexcom G6 Public Safety Police misc Active ? Not avai lable DIRECTED DAILY Dexcom G6 Sensor device Active ? Not avai lable USE DIRECTED AND CHANGE 3 TIMES MONTHLY Dexcom G6 Transmitter device Active ? Not available DIRECTED DAILY AND REPLACE EVERY 3 MONTHS dorzolamide 22.3 mg-timolol 6.8 mg/mL eye drops Active ? Not available INSTILL 1 DROP IN BOTH EYES TWICE DAILY DIRECTED ergocalciferol (vitamin D2) 1,250 mcg (50,000 unit) capsule Acti ve ? Not available TAKE ONE CAPSULE BY MOUTH EVERY THURSDAY FreeStyle Fadi 2 Sensor kit Active ? Not available TEST DIRECTED AND CHANGE EVERY 14 DAYS hydrochlorothiazide 25 mg tablet Active ? Not available TAKE 1 TABLET BY MOUTH DAILY insulin aspart (U-100) 100 unit/mL (3 mL) subcutaneous pen Compl eted ? 01/15/2021 INJECT 5 UNITS UNDER THE SKIN THREE JOSSE ES DAILY BEFORE A MEAL NEEDED FOR HIGH BLOOD SUGAR insulin lispro
--- NOTE | 2022-01-28 19:05 | ADMGEN ---
This patient, Elsie [facility], was admitted to 2nd Floor Room 206-1. Patient/family oriented to hospital policies and general routines including ID bracelet, bed and alarms, visiting hours, pain management, procedures, bathroom and other care routines, personal items, smoking policy, room service/diet, and visiting hours. Information on how to activate the Rapid Response Team has been discussed. Patient/Family are encouraged to report perceived risks to care and to ask questions if they do not understand what they are told or what they should do.
[2022-01-28 19:08] VITALS: BP 185/95; PULSE 17; RESP 17; TEMP 36.3; O2SAT 96; BMI 34.9
[2022-01-28] MEDS: guaiFENesin 12 HR 600 MG TABCR PO (21:20)
[2022-01-28] MEDS: FLUTICASONE PROPIONATE 0.05% NA SPR 16 GM BTL (*BKC) 1 SPRAY NASAL (21:20)
[2022-01-28 21:35] LABS: Glucose Point of Care 96 mg/dl (65-105)
[2022-01-29] VITALS: BP 150/58; PULSE 66; RESP 16; TEMP 36.4; O2SAT 94
[2022-01-29] MEDS: ACETAMINOPHEN 325 MG TABLET 650 MG PO ×2 (03:36→21:15)
--- OUTSIDE RECORDS SUMMARY | 2022-01-29 07:08 | XMS_ITS ---
:1935 Author Care Team Providers Name Role Phone LUIS MIGUEL ROBERTS MD Primary Care Provider [phone] Allergies Code Code System Name Reaction Severity [...] 12 HOURS FOR 4 DAYS Dexcom G6 [employer] misc Active ? Not avai lable DIRECTED [...]
[2022-01-29 08:00] VITALS: BP 150/57; PULSE 64; RESP 17; TEMP 36.2; O2SAT 91
[2022-01-29 08:09] LABS: Glucose Point of Care 93 mg/dl (65-105)
[2022-01-29] MEDS: FLUTICASONE PROPIONATE 0.05% NA SPR 16 GM BTL (*BKC) 1 SPRAY NASAL ×2 (09:02→21:16)
[2022-01-29] MEDS: guaiFENesin 12 HR 600 MG TABCR PO ×2 (09:02→21:14)
[2022-01-29 09:03] VITALS: PULSE 64
[2022-01-29] MEDS: ATORVASTATIN 10 MG TABLET 20 MG PO (09:03)
[2022-01-29] MEDS: SENNA/DOCUSATE SODIUM TABLET 1 TAB PO (09:03)
[2022-01-29] MEDS: CEFDINIR 300 MG CAPSULE PO (09:03)
[2022-01-29] MEDS: METOPROLOL SUCCINATE EXT REL 50 MG TABCR 100 MG PO (09:03)
[2022-01-29] MEDS: LOSARTAN POTASSIUM 50 MG TABLET 100 MG PO (09:03)
[2022-01-29] MEDS: hydroCHLOROthiazide 25 MG TABLET PO (09:04)
[2022-01-29] MEDS: LIDOCAINE 5% PATCH 1 PATCH TRANSDERM (09:04)
[2022-01-29] MEDS: INSULIN GLARGINE (*BKC) 100 UNITS/ML 28 UNITS SUB-Q (09:05)
--- NOTE | 2022-01-29 10:09 | PM.IMHP ---
H&P: HPI History of Present Illness Date/Time: 01/29/22 10:09 Chief Complaint: weakness Narrative: This is a 86YO female that was admitted to [facility] with the Dx of Covid PNA and UTI.Patient admitted in swing bed for rehabilitation due to decreased balance decreased mobility in severe limited function endurant and/or mobility. Review of Systems Review of Systems: All systems reviewed & are unremarkable except as noted in HPI and below PMFSH Past Medical History Medical History (Updated 01/29/22 @ 10:19 by JULIAN Dooley) Anemia Chronic renal disease, stage 4, severely decreased glomerular filtration rate (GFR) between 15-29 mL/min/1.73 square meter Diabetic peripheral neuropathy Essential hypertension Glaucoma History of diverticulitis of colon Hyperlipidemia associated with type 2 diabetes mellitus Osteopenia Type 2 diabetes mellitus Ventral hernia without obstruction or gangrene Vitamin D deficiency Surgical History Surgical History History of appendectomy History of cholecystectomy History of colectomy Due to severe diverticulitis History of colostomy reversal History of partial hysterectomy Hx of cataract extraction Status post ORIF of fracture of ankle Family History Family History Mother Asthma Family history of heart disease in male family member before age 55 Sibling Family history of Parkinson's disease, Onset Age: 86 Daughter Hypothyroidism Other Diabetes mellitus Social History Social History Social History: The patient lives home alone but her daughters check in on her. The patient walks with a walker. Her daughter Georgia rangel is a durable power regulatory attorney for healthcare. The patient is a full code. The patient used to smoke many years ago. 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 The patient does not use any alcohol marijuana or illicit drugs. Smoking packs per day: 2 Smoking cigarettes per day: 40.0 Years smoked: 30 Smoking pack-years: 60.00 Smoking status: Never smoker Tobacco type: cigarettes Second hand tobacco smoke exposure: No Alcohol intake: never Substance use: never Substance use type: does not use Gender identity (if verbalized by the patient): Female Spiritual care concerns: No Has the Lack of Transportation Kept You From Medical Appointments or From Getting Medications?: No Within the Past 12 Months, Were You Worried Whether Your Food Would Run Out Before You Got Money to Buy More?: Never True What is Your Housing Situation Today?: I Have Housing Are You Worried That in the Next 2 Months, You May Not Have Your Own Housing to Live In?: No Do You Have Trouble Paying Your Heating Or Electricity Bill?: No Do You Have Trouble Paying For Medicines?: No Are You Currently Unemployed and Looking for Work?: No Highest Level of Education Completed: Decline to Answer Do You Have Trouble With Childcare or the Care of a Family Member?: No Meds Home Medications and Allergies Home Medications Medication Instructions Recorded Confirmed Type hydrochlorothiazide 25 mg tablet 25 mg PO DAILY #90 tabs 09/12/21 01/28/22 Rx losartan 100 mg tablet 100 mg PO DAILY #90 tabs 09/12/21 01/28/22 Rx ergocalciferol (vitamin D2) 1,250 1,250 mcg PO WEEKLY #12 caps 10/17/21 01/28/22 Rx mcg (50,000 unit) capsule metoprolol succinate 100 mg 100 mg PO DAILY #90 tabs 12/11/21 01/28/22 Rx tablet,extended release 24 hr atorvastatin 20 mg tablet 20 mg PO DAILY 01/24/22 01/28/22 History insulin glargine 100 unit/mL (3 28 unit subcut DAILY 01/24/22 01/28/22 History mL) subcutaneous pen (Lantus Solostar U-100 Insulin) acetaminophen 325 mg tablet (Mapap 650 mg PO Q4H PRN Mild Pain (1-3) 01/28/22 01/28/22 Rx (acetaminophen)) Or Fever #7 tabs albuterol sulfate
[2022-01-29 11:39] LABS: Glucose Point of Care 170 mg/dl (65-105)
[2022-01-29 15:27] VITALS: BP 149/56; PULSE 71; RESP 17; TEMP 36.1; O2SAT 94
[2022-01-29 16:57] LABS: Glucose Point of Care 266 mg/dl (65-105)
--- NOTE | 2022-01-29 18:09 | PC.NURSE ---
Charting by Mya Oilvia, student nurse has been reviewed and agreed upon by this nurse.
[2022-01-29] MEDS: MELATONIN 5 MG TABLET 10 MG PO (21:14)
[2022-01-29 21:33] LABS: Glucose Point of Care 209 mg/dl (65-105)
[2022-01-30] VITALS: BP 154/64; PULSE 76; RESP 18; TEMP 36.4; O2SAT 95
[2022-01-30 07:40] LABS: Glucose Point of Care 139 mg/dl (65-105)
[2022-01-30 08:00] VITALS: BP 150/69; PULSE 69; RESP 16; TEMP 36.5; O2SAT 93
[2022-01-30] MEDS: FLUTICASONE PROPIONATE 0.05% NA SPR 16 GM BTL (*BKC) 1 SPRAY NASAL ×2 (08:30→20:05)
[2022-01-30] MEDS: ATORVASTATIN 10 MG TABLET 20 MG PO (08:30)
[2022-01-30] MEDS: LIDOCAINE 5% PATCH 1 PATCH TRANSDERM (08:30)
[2022-01-30] MEDS: hydroCHLOROthiazide 25 MG TABLET PO (08:31)
[2022-01-30] MEDS: SENNA/DOCUSATE SODIUM TABLET 1 TAB PO ×2 (08:31→17:24)
[2022-01-30] MEDS: LOSARTAN POTASSIUM 50 MG TABLET 100 MG PO (08:31)
[2022-01-30 08:32] VITALS: PULSE 69
[2022-01-30] MEDS: METOPROLOL SUCCINATE EXT REL 50 MG TABCR 100 MG PO (08:32)
[2022-01-30] MEDS: CEFDINIR 300 MG CAPSULE PO (08:32)
[2022-01-30] MEDS: guaiFENesin 12 HR 600 MG TABCR PO ×2 (08:32→20:05)
[2022-01-30] MEDS: traMADol HCL (*CRX) 25 MG TABLET PO ×2 (08:34→20:05)
[2022-01-30] MEDS: INSULIN GLARGINE (*BKC) 100 UNITS/ML 28 UNITS SUB-Q (08:48)
[2022-01-30 11:50] LABS: Glucose Point of Care 241 mg/dl (65-105)
[2022-01-30 16:00] VITALS: BP 147/48; PULSE 57; RESP 16; TEMP 36.5; O2SAT 96
[2022-01-30 16:51] LABS: Glucose Point of Care 146 mg/dl (65-105)
[2022-01-30] MEDS: HYDROcodone/acetaminophen (*CRX) 5-325 MG TABLET 1 TAB PO (17:24)
--- NOTE | 2022-01-30 18:25 | PC.NURSE ---
Patient transferred from chair to bed with 1 assist gait belt and walker. Continues to c/o moderate pain in L hip r/t fall. [place] somewhat effective. Patient in bed at this time with heels off bed and legs elevated.
[2022-01-30 20:00] VITALS: PULSE 57; RESP 16; O2SAT 96
[2022-01-30] MEDS: MELATONIN 5 MG TABLET 10 MG PO (20:05)
[2022-01-30 20:16] LABS: Glucose Point of Care 214 mg/dl (65-105)
[2022-01-30 23:58] VITALS: BP 150/77; PULSE 69; RESP 16; TEMP 36.2; O2SAT 97
[2022-01-31 07:39] LABS: Glucose Point of Care 125 mg/dl (65-105)
[2022-01-31 08:00] VITALS: BP 131/42; PULSE 67; RESP 16; TEMP 36.7; O2SAT 93
[2022-01-31] MEDS: INSULIN GLARGINE (*BKC) 100 UNITS/ML 28 UNITS SUB-Q (08:06)
[2022-01-31] MEDS: FLUTICASONE PROPIONATE 0.05% NA SPR 16 GM BTL (*BKC) 1 SPRAY NASAL ×2 (08:06→20:24)
[2022-01-31] MEDS: LIDOCAINE 5% PATCH 1 PATCH TRANSDERM (08:06)
[2022-01-31 08:08] VITALS: PULSE 67
[2022-01-31] MEDS: SENNA/DOCUSATE SODIUM TABLET 1 TAB PO ×2 (08:08→16:59)
[2022-01-31] MEDS: hydroCHLOROthiazide 25 MG TABLET PO (08:08)
[2022-01-31] MEDS: METOPROLOL SUCCINATE EXT REL 50 MG TABCR 100 MG PO (08:08)
[2022-01-31] MEDS: CEFDINIR 300 MG CAPSULE PO (08:09)
[2022-01-31] MEDS: LOSARTAN POTASSIUM 50 MG TABLET 100 MG PO (08:09)
[2022-01-31] MEDS: ATORVASTATIN 10 MG TABLET 20 MG PO (08:10)
[2022-01-31] MEDS: guaiFENesin 12 HR 600 MG TABCR PO ×2 (08:10→20:14)
[2022-01-31] MEDS: HYDROcodone/acetaminophen (*CRX) 5-325 MG TABLET 1 TAB PO (08:11)
[2022-01-31] MEDS: ERGOCALCIFEROL 50,000 UNITS CAPSULE 50000 UNITS PO (08:12)
[2022-01-31 11:50] LABS: Glucose Point of Care 198 mg/dl (65-105)
[2022-01-31 16:00] VITALS: BP 148/57; PULSE 59; RESP 16; TEMP 36.2; O2SAT 98
[2022-01-31 16:45] LABS: Glucose Point of Care 189 mg/dl (65-105)
[2022-01-31] MEDS: MELATONIN 5 MG TABLET 10 MG PO (20:13)
[2022-01-31] MEDS: traMADol HCL (*CRX) 25 MG TABLET PO (20:13)
[2022-01-31 20:24] LABS: Glucose Point of Care 203 mg/dl (65-105)
[2022-02-01] VITALS: BP 141/72; PULSE 64; TEMP 36.4; O2SAT 97
[2022-02-01 08:00] VITALS: BP 138/47; PULSE 68; RESP 17; TEMP 36.6; O2SAT 93
[2022-02-01 08:06] LABS: Glucose Point of Care 121 mg/dl (65-105)
[2022-02-01 08:54] VITALS: PULSE 68
[2022-02-01] MEDS: guaiFENesin 12 HR 600 MG TABCR PO ×2 (08:54→21:58)
[2022-02-01] MEDS: FLUTICASONE PROPIONATE 0.05% NA SPR 16 GM BTL (*BKC) 1 SPRAY NASAL ×2 (08:54→21:59)
[2022-02-01] MEDS: METOPROLOL SUCCINATE EXT REL 50 MG TABCR 100 MG PO (08:54)
[2022-02-01] MEDS: LOSARTAN POTASSIUM 50 MG TABLET 100 MG PO (08:55)
[2022-02-01] MEDS: ATORVASTATIN 10 MG TABLET 20 MG PO (08:55)
[2022-02-01] MEDS: hydroCHLOROthiazide 25 MG TABLET PO (08:55)
[2022-02-01] MEDS: INSULIN GLARGINE (*BKC) 100 UNITS/ML 28 UNITS SUB-Q (08:55)
[2022-02-01 11:59] LABS: Glucose Point of Care 193 mg/dl (65-105)
[2022-02-01 16:00] VITALS: BP 171/68; PULSE 79; RESP 17; TEMP 36.6; O2SAT 91
[2022-02-01 16:58] LABS: Glucose Point of Care 213 mg/dl (65-105)
[2022-02-01] MEDS: MELATONIN 5 MG TABLET 10 MG PO (21:57)
[2022-02-01] MEDS: ACETAMINOPHEN 325 MG TABLET 650 MG PO (21:58)
[2022-02-01 22:41] LABS: Glucose Point of Care 184 mg/dl (65-105)
[2022-02-02] VITALS: BP 158/65; PULSE 74; RESP 18; TEMP 36.8; O2SAT 94
[2022-02-02 08:00] VITALS: BP 155/61; PULSE 61; RESP 17; TEMP 36.4; O2SAT 96
[2022-02-02 08:12] LABS: Glucose Point of Care 135 mg/dl (65-105)
[2022-02-02] MEDS: LOSARTAN POTASSIUM 50 MG TABLET 100 MG PO (09:04)
[2022-02-02] MEDS: FLUTICASONE PROPIONATE 0.05% NA SPR 16 GM BTL (*BKC) 1 SPRAY NASAL ×2 (09:04→20:51)
[2022-02-02] MEDS: INSULIN GLARGINE (*BKC) 100 UNITS/ML 28 UNITS SUB-Q (09:04)
[2022-02-02 09:05] VITALS: PULSE 61
[2022-02-02] MEDS: METOPROLOL SUCCINATE EXT REL 50 MG TABCR 100 MG PO (09:05)
[2022-02-02] MEDS: hydroCHLOROthiazide 25 MG TABLET PO (09:05)
[2022-02-02] MEDS: ATORVASTATIN 10 MG TABLET 20 MG PO (09:05)
[2022-02-02] MEDS: ACETAMINOPHEN 325 MG TABLET 650 MG PO ×2 (09:06→20:51)
[2022-02-02] MEDS: guaiFENesin 12 HR 600 MG TABCR PO ×2 (09:06→20:51)
[2022-02-02] MEDS: LIDOCAINE 5% PATCH 1 PATCH TRANSDERM (09:07)
[2022-02-02 11:52] LABS: Glucose Point of Care 233 mg/dl (65-105)
[2022-02-02 16:00] VITALS: BP 161/62; PULSE 62; RESP 17; TEMP 36.1; O2SAT 96
[2022-02-02 17:06] LABS: Glucose Point of Care 203 mg/dl (65-105)
--- NOTE | 2022-02-02 18:42 | PC.NURSE ---
Charting by Mya Olivia, student nurse reviewed and agreed with by this nurse.
[2022-02-02] MEDS: MELATONIN 5 MG TABLET 10 MG PO (20:51)
[2022-02-02 20:52] LABS: Glucose Point of Care 145 mg/dl (65-105)
[2022-02-03] VITALS: BP 147/53; PULSE 66; RESP 18; TEMP 36.4; O2SAT 94
[2022-02-03 08:00] VITALS: BP 149/51; PULSE 63; RESP 16; TEMP 36.2; O2SAT 94
[2022-02-03 08:00] LABS: Glucose Point of Care 146 mg/dl (65-105)
[2022-02-03] MEDS: hydroCHLOROthiazide 25 MG TABLET PO (09:24)
[2022-02-03] MEDS: guaiFENesin 12 HR 600 MG TABCR PO ×2 (09:24→21:31)
[2022-02-03] MEDS: LOSARTAN POTASSIUM 50 MG TABLET 100 MG PO (09:24)
[2022-02-03 09:25] VITALS: PULSE 62
[2022-02-03] MEDS: METOPROLOL SUCCINATE EXT REL 50 MG TABCR 100 MG PO (09:25)
[2022-02-03] MEDS: INSULIN GLARGINE (*BKC) 100 UNITS/ML 28 UNITS SUB-Q (09:27)
[2022-02-03] MEDS: ATORVASTATIN 10 MG TABLET 20 MG PO (09:27)
[2022-02-03] MEDS: LIDOCAINE 5% PATCH 1 PATCH TRANSDERM (09:31)
[2022-02-03] MEDS: FLUTICASONE PROPIONATE 0.05% NA SPR 16 GM BTL (*BKC) 1 SPRAY NASAL ×2 (09:31→21:35)
--- NOTE | 2022-02-03 11:11 | PM.EVENT ---
Event Note Event Note Event Note: Patient continues to complain of left hip pain will schedule a MRI for .
[2022-02-03 12:04] LABS: Glucose Point of Care 191 mg/dl (65-105)
[2022-02-03 16:00] VITALS: BP 180/66; PULSE 67; RESP 18; TEMP 36.4; O2SAT 98
[2022-02-03] MEDS: traMADol HCL (*CRX) 25 MG TABLET PO (16:20)
[2022-02-03 16:33] LABS: Glucose Point of Care 195 mg/dl (65-105)
[2022-02-03] MEDS: MELATONIN 5 MG TABLET 10 MG PO (21:31)
[2022-02-03] MEDS: ACETAMINOPHEN 325 MG TABLET 650 MG PO (21:32)
[2022-02-03 21:43] LABS: Glucose Point of Care 241 mg/dl (65-105)
[2022-02-04] VITALS: BP 164/76; PULSE 61; RESP 18; TEMP 36.3; O2SAT 98
[2022-02-04 07:53] VITALS: BP 150/49; PULSE 64; RESP 18; TEMP 36; O2SAT 94
[2022-02-04 08:05] LABS: Glucose Point of Care 137 mg/dl (65-105)
[2022-02-04] MEDS: INSULIN GLARGINE (*BKC) 100 UNITS/ML 28 UNITS SUB-Q (08:33)
[2022-02-04] MEDS: LOSARTAN POTASSIUM 50 MG TABLET 100 MG PO (08:35)
[2022-02-04 08:36] VITALS: PULSE 64
[2022-02-04] MEDS: ATORVASTATIN 10 MG TABLET 20 MG PO (08:36)
[2022-02-04] MEDS: hydroCHLOROthiazide 25 MG TABLET PO (08:36)
[2022-02-04] MEDS: guaiFENesin 12 HR 600 MG TABCR PO ×2 (08:36→20:39)
[2022-02-04] MEDS: METOPROLOL SUCCINATE EXT REL 50 MG TABCR 100 MG PO (08:36)
[2022-02-04] MEDS: LIDOCAINE 5% PATCH 1 PATCH TRANSDERM (08:36)
[2022-02-04 11:40] LABS: Glucose Point of Care 187 mg/dl (65-105)
[2022-02-04 16:00] VITALS: BP 155/53; PULSE 62; RESP 16; TEMP 36.2; O2SAT 96
[2022-02-04 16:42] LABS: Glucose Point of Care 163 mg/dl (65-105)
[2022-02-04] MEDS: FLUTICASONE PROPIONATE 0.05% NA SPR 16 GM BTL (*BKC) 1 SPRAY NASAL (20:38)
[2022-02-04] MEDS: MELATONIN 5 MG TABLET 10 MG PO (20:39)
[2022-02-04] MEDS: traMADol HCL (*CRX) 25 MG TABLET PO (20:39)
[2022-02-04 20:54] LABS: Glucose Point of Care 201 mg/dl (65-105)
[2022-02-05] VITALS: BP 171/62; PULSE 74; RESP 20; TEMP 36.6; O2SAT 96
[2022-02-05 07:33] LABS: Glucose Point of Care 146 mg/dl (65-105)
[2022-02-05 07:42] VITALS: BP 137/74; PULSE 73; RESP 16; TEMP 36.4; O2SAT 95
[2022-02-05] MEDS: FLUTICASONE PROPIONATE 0.05% NA SPR 16 GM BTL (*BKC) 1 SPRAY NASAL ×2 (08:18→20:03)
[2022-02-05] MEDS: hydroCHLOROthiazide 25 MG TABLET PO (08:18)
[2022-02-05] MEDS: LOSARTAN POTASSIUM 50 MG TABLET 100 MG PO (08:18)
[2022-02-05] MEDS: guaiFENesin 12 HR 600 MG TABCR PO ×2 (08:18→20:03)
[2022-02-05] MEDS: LIDOCAINE 5% PATCH 1 PATCH TRANSDERM (08:19)
[2022-02-05] MEDS: ATORVASTATIN 10 MG TABLET 20 MG PO (08:19)
[2022-02-05] MEDS: ACETAMINOPHEN 325 MG TABLET 650 MG PO (08:20)
[2022-02-05 08:21] VITALS: PULSE 72
[2022-02-05] MEDS: METOPROLOL SUCCINATE EXT REL 50 MG TABCR 100 MG PO (08:21)
[2022-02-05] MEDS: INSULIN GLARGINE (*BKC) 100 UNITS/ML 28 UNITS SUB-Q (08:24)
[2022-02-05 11:50] LABS: Glucose Point of Care 227 mg/dl (65-105)
[2022-02-05 15:46] VITALS: BP 146/46; PULSE 72; RESP 16; TEMP 36.4; O2SAT 97
[2022-02-05 16:49] LABS: Glucose Point of Care 182 mg/dl (65-105)
[2022-02-05] MEDS: traMADol HCL (*CRX) 25 MG TABLET PO (20:02)
[2022-02-05] MEDS: MELATONIN 5 MG TABLET 10 MG PO (20:03)
[2022-02-05 20:07] LABS: Glucose Point of Care 256 mg/dl (65-105)
[2022-02-06] VITALS: BP 172/57; PULSE 71; RESP 18; TEMP 36.2; O2SAT 97
[2022-02-06 05:06] LABS: Hematocrit 25.7 % (35.0-42.0); Hemoglobin 8.6 g/dL (11.7-13.8); Mean Corpuscular HGB Conc 33.5 g/dL (32.0-36.0); Mean Corpuscular Hemoglobin 30.7 pg (27.0-31.0); Mean Corpuscular Volume 91.8 fL (78.0-102.0); Mean Platelet Volume 8.6 fl (9.2-11.8); Platelet Count Result 294 K/mm3 (150-420); Red Cell Distribution Width 11.8 % (11.6-14.4); White Blood Count 14.1 K/mm3 (4.8-10.8)
[2022-02-06 05:19] LABS: Anion Gap 9 mmol/L (8-16); Blood Urea Nitrogen 50 mg/dL (7-18); Calcium 8.2 mg/dL (8.5-10.1); Carbon Dioxide 23 mmol/L (21-32); Chloride 107 mmol/L (98-108); Estimated CRCL calculation 21 ml/min; Estimated Glomerular Filt Rate 27; Glucose 135 mg/dL (70-99); Osmolality Calculated 303 mOsm/kg (285-295); Potassium 4.3 mmol/L (3.5-5.1); Sodium 139 mmol/L (136-145)
[2022-02-06 08:00] VITALS: BP 137/44; PULSE 62; RESP 17; TEMP 36.1; O2SAT 98
[2022-02-06 08:49] LABS: Glucose Point of Care 183 mg/dl (65-105)
[2022-02-06 09:20] VITALS: PULSE 62
[2022-02-06] MEDS: METOPROLOL SUCCINATE EXT REL 50 MG TABCR 100 MG PO (09:20)
[2022-02-06] MEDS: LIDOCAINE 5% PATCH 1 PATCH TRANSDERM (09:20)
[2022-02-06] MEDS: INSULIN GLARGINE (*BKC) 100 UNITS/ML 28 UNITS SUB-Q (09:20)
[2022-02-06] MEDS: ATORVASTATIN 10 MG TABLET 20 MG PO (09:20)
[2022-02-06] MEDS: FLUTICASONE PROPIONATE 0.05% NA SPR 16 GM BTL (*BKC) 1 SPRAY NASAL ×2 (09:20→20:11)
[2022-02-06] MEDS: LOSARTAN POTASSIUM 50 MG TABLET 100 MG PO (09:22)
[2022-02-06] MEDS: guaiFENesin 12 HR 600 MG TABCR PO ×2 (09:22→20:12)
[2022-02-06] MEDS: hydroCHLOROthiazide 25 MG TABLET PO (09:22)
[2022-02-06] MEDS: traMADol HCL (*CRX) 25 MG TABLET PO (09:40)
--- NOTE | 2022-02-06 09:59 | PM.EVENT ---
Event Note Event Note Event Note: MRI [facility], operated by [facility] [address] [place] [address] Magnetic Resonance Report Signed : 1935 MR#: [id number] Age/Sex: 86 / F Acct:[id number] Loc: CHS2ND? ? 206CHS-1 ADM Date: 01/28/22Attending Dr: Ham Trent MD Ordering Physician: Stacy Buckner APRN Date of Service: 02/06/22 Procedure(s): MR hip LT wo con Accession Number(s): [id number] cc: Blessing Williamson MD; Gideon Trent MD; Stacy Buckner APRN~ EXAMINATION: MR hip LT wo con DATE: 02/06/2022 08:32 INDICATION: Left hip pain post fall TECHNIQUE:? Magnetic resonance imaging (MRI) of the left hip was performed without intravenous contrast. Sequences included full-field axial PD-weighted FS FSE and T1-weighted FSE, coronal of the pelvis with PD-weighted FS FSE, small field of view of the? left hip with axial PD-weighted FS FSE, sagittal PD-weighted FS FSE and coronal PD weighted FS FSE. Additional radial T1-weighted FGR oriented orthogonal to the acetabular rim were obtained for evaluation of the labrum. COMPARISON: None FINDINGS: Bones/labrum/cartilage: There are edema surrounding a nondisplaced avulsion fracture involving the left gluteus medius footplate at the proximal aspect of the left greater trochanter. The left gluteus minimus footplate does not appear to be included within the fracture fragment. No evident involvement of the weightbearing axis of the femur. Otherwise normal marrow signal. No other fractures or pathologic marrow replacing process. Labrum is normal. Articular cartilage is normal. Fluid: Symmetric physiologic amount of fluid within both hip joints. Small amount of fluid in the left trochanteric bursa most likely hematoma related to the underlying avulsion fracture. Mild increased fluid signal overlying the right greater trochanter consistent with mild right trochanteric bursitis. Mild increased fluid signal at the left ischial tuberosity consistent with mild left ischial bursitis. Soft tissues: Normal and symmetric muscle bulk and signal in the pelvis and visualized proximal thighs. Mild tendinopathy without discrete tear at the bilateral proximal hamstring tendons and at the left gluteus medius and minimus tendons. Right gluteal tendons and bilateral iliopsoas tendons are normal. 0.5 cm right adnexal cyst. Limited evaluation of visceral organs of the pelvis is otherwise unremarkable. Susceptibility artifact along a an infraumbilical midline abdominal wound surgical scar. Very small fat-containing umbilical hernia. No pathologically enlarged pelvic/inguinal lymphadenopathy. IMPRESSION: 1. Nondisplaced avulsion fracture across the cephalad aspect of the left greater trochanter involving the footplate of the gluteus medius tendon. Call placed to ORtho education paraprofessional which is Dr. Mari faxed report and awiting a call back for recommendation . Patient is resting at this time as long as he is not moving she is not having pain. With ambulation and theapy she is having a lot of pain which continues to get progressively worse.
[2022-02-06 11:56] LABS: Glucose Point of Care 225 mg/dl (65-105)
[2022-02-06 16:00] VITALS: BP 179/62; PULSE 66; RESP 17; TEMP 36.1; O2SAT 96
[2022-02-06 16:59] LABS: Glucose Point of Care 173 mg/dl (65-105)
--- NOTE | 2022-02-06 18:34 | PC.NURSE ---
Charting by Mya Olivia, student nurse reviewed and agreed with by this nurse.
[2022-02-06 19:38] VITALS: PULSE 66; RESP 17; O2SAT 96
[2022-02-06] MEDS: MELATONIN 5 MG TABLET 10 MG PO (20:11)
[2022-02-06] MEDS: HYDROcodone/acetaminophen (*CRX) 5-325 MG TABLET 1 TAB PO (20:12)
[2022-02-06 20:16] LABS: Glucose Point of Care 190 mg/dl (65-105)
[2022-02-07] VITALS: BP 167/50; PULSE 66; RESP 15; TEMP 36.4; O2SAT 100
[2022-02-07 08:00] VITALS: BP 142/60; PULSE 66; RESP 16; TEMP 36.3; O2SAT 100
[2022-02-07 08:02] LABS: Glucose Point of Care 135 mg/dl (65-105)
[2022-02-07] MEDS: LIDOCAINE 5% PATCH 1 PATCH TRANSDERM (08:49)
[2022-02-07 08:50] VITALS: PULSE 64
[2022-02-07] MEDS: METOPROLOL SUCCINATE EXT REL 50 MG TABCR 100 MG PO (08:50)
[2022-02-07] MEDS: guaiFENesin 12 HR 600 MG TABCR PO ×2 (08:50→20:17)
[2022-02-07] MEDS: hydroCHLOROthiazide 25 MG TABLET PO (08:50)
[2022-02-07] MEDS: ATORVASTATIN 10 MG TABLET 20 MG PO (08:50)
[2022-02-07] MEDS: LOSARTAN POTASSIUM 50 MG TABLET 100 MG PO (08:50)
[2022-02-07] MEDS: traMADol HCL (*CRX) 25 MG TABLET PO (08:50)
[2022-02-07] MEDS: INSULIN GLARGINE (*BKC) 100 UNITS/ML 28 UNITS SUB-Q (08:51)
[2022-02-07] MEDS: FLUTICASONE PROPIONATE 0.05% NA SPR 16 GM BTL (*BKC) 1 SPRAY NASAL ×2 (08:51→20:18)
[2022-02-07] MEDS: ERGOCALCIFEROL 50,000 UNITS CAPSULE 50000 UNITS PO (08:54)
--- NOTE | 2022-02-07 10:46 | P.PNCROSS_ITS ---
Event Note Event Note Event Note: Dr. oBo has come and seen the patient she can be weightbearing as tolerat ed but she is very limited she is on stable and unable to safely ambulate independently ambulate any long distance due to weakness in that leg and her leg gives out at any point time. Ms. St has a significant functional mobility limited to that impairs her ability to participate in activities of daily living including toileting herself standing for long periods of time. At this time patient will need to utilize a wheelchair for most functional mobilities within her home, hospital, assisted living facility as she is not able to ambulate long periods of time. Patient's home will provide adequate access between her room for maneuvering the use of a wheelchair for functional mobility strongly recommended and patient is receptive to using the wheelchair at this time as well as family.
--- NOTE | 2022-02-07 10:46 | PM.CNOR ---
Assessment and Plan Assessment and plan (1) Fracture of greater trochanter of left femur: Qualifiers: Encounter type: initial encounter Fracture type: closed Fracture alignment: nondisplaced Qualified Code(s): S72.115A - Nondisplaced fracture of greater trochanter of left femur, initial encounter for closed fracture Code(s): S72.112A - Displaced fracture of greater trochanter of left femur, initial encounter for closed fracture Status: Acute Assessment and Plan: New patient evaluation status post injury left hip. The history, physical exam and radiographs reviewed with the patient. Type of fracture discussed in detail. fall while going to the bathroom 12 days ago. Radiographs negative. MRI shows nondisplaced fracture greater trochanter. Treatment options including operative and non operative treatment reviewed. Risks, benefits and alternatives of each treatment discussed in detail. The patient has declined surgical treatment. Risks of treatment decision discussed in detail. Potential problems with displacement of the fracture, loss of alignment, nonunion, malunion and dysfunction discussed in detail. The patient's questions were answered. They verbalized understanding and agreement. Conservative treatment with immobilization, ice, compression and elevation. Pain control. PT/OT with weight-bearing as tolerated. Use of walker and assistance with ambulating. Patient is high fall risk. Discussed with patient healing time of 5 to 6 weeks. Discussed pain should improve over the next week. Follow up in orthopedic office after discharge. (2) Fall from standing: Qualifiers: Encounter type: initial encounter Qualified Code(s): W19.XXXA - Unspecified fall, initial encounter Code(s): W19.XXXA - Unspecified fall, initial encounter Status: Acute History of Present Illness HPI Consult date: 02/07/22 Requesting physician: Leona Whittington NP Consult reason: fracture (LT hip) Chief complaint: REHAB/hip pain Narrative: 86-year-old woman admitted to the swing bed from [facility]. Report of fall while going to the bathroom January 26. Left hip pain and difficulty with weight-bearing/activity. Denies numbness or tingling. Denies prior problems with the hip. Pain is over the lateral aspect. Worse when she lays on that side or tries to move it. Review of Systems Constitutional: Constitutional: Denies fever(s) Eyes: Eyes: Denies blurry vision ENT: Reports Normal hearing present Cardiovascular: Cardiovascular: Denies chest pain and Denies dyspnea Respiratory: Respiratory: Denies dyspnea and Denies wheezing Gastrointestinal: Gastrointestinal: Denies abdominal pain Genitourinary: Genitourinary: Denies urinary urgency Musculoskeletal: Musculoskeletal: Reports as per HPI and Denies numbness Integumentary/Breasts: Skin/Breast: Denies changing lesions and Denies sores Neurologic: Reports Normal hearing present, Denies behavioral changes, Denies confusion, Denies numbness and Denies convulsions Psychiatric: Psychiatric: Denies behavioral changes, Denies confusion and Denies hallucinations Endocrine: Endocrine: Denies heat intolerance Hematologic/Lymphatic: Hematologic/Lymphatic: Denies easy bleeding Allergic/Immunologic: Allergic/Immunologic: Denies wheezing [facility] Past Medical History Medical History (Updated 02/07/22 @ 10:49 by Mk Mari MD) Anemia Chronic renal disease, stage 4, severely decreased glomerular filtration rate (GFR) between 15-29 mL/min/1.73 square meter Diabetic peripheral neuropathy Essential hypertension Fall from standing Fracture of greater trochanter of left femur Glaucoma History of diverticulitis of colon Hyperlipidemia associated with type 2 diabetes mellitus Osteopenia Type 2 diabetes mellitus Ventral hernia without obstruction or gangrene Vitamin D deficiency Surgical History Surgical History (Reviewed 02/07/22
[2022-02-07 11:59] LABS: Glucose Point of Care 226 mg/dl (65-105)
[2022-02-07 16:00] VITALS: BP 144/70; PULSE 80; RESP 18; TEMP 36.3; O2SAT 95
[2022-02-07 17:00] LABS: Glucose Point of Care 143 mg/dl (65-105)
[2022-02-07] MEDS: MELATONIN 5 MG TABLET 10 MG PO (20:16)
[2022-02-07] MEDS: HYDROcodone/acetaminophen (*CRX) 5-325 MG TABLET 1 TAB PO (20:17)
[2022-02-07 20:26] LABS: Glucose Point of Care 233 mg/dl (65-105)
[2022-02-08] VITALS: BP 152/58; PULSE 65; RESP 14; TEMP 36.2; O2SAT 98
[2022-02-08 07:43] LABS: Glucose Point of Care 119 mg/dl (65-105)
[2022-02-08 08:00] VITALS: BP 153/64; PULSE 65; RESP 16; TEMP 36.9; O2SAT 97
[2022-02-08] MEDS: guaiFENesin 12 HR 600 MG TABCR PO ×2 (08:45→20:39)
[2022-02-08] MEDS: LIDOCAINE 5% PATCH 1 PATCH TRANSDERM (08:45)
[2022-02-08] MEDS: hydroCHLOROthiazide 25 MG TABLET PO (08:45)
[2022-02-08 08:46] VITALS: PULSE 65
[2022-02-08] MEDS: ATORVASTATIN 10 MG TABLET 20 MG PO (08:46)
[2022-02-08] MEDS: METOPROLOL SUCCINATE EXT REL 50 MG TABCR 100 MG PO (08:46)
[2022-02-08] MEDS: LOSARTAN POTASSIUM 50 MG TABLET 100 MG PO (08:46)
[2022-02-08] MEDS: FLUTICASONE PROPIONATE 0.05% NA SPR 16 GM BTL (*BKC) 1 SPRAY NASAL ×2 (08:46→20:38)
[2022-02-08] MEDS: INSULIN GLARGINE (*BKC) 100 UNITS/ML 28 UNITS SUB-Q (08:47)
[2022-02-08] MEDS: traMADol HCL (*CRX) 25 MG TABLET PO (09:36)
[2022-02-08 12:03] LABS: Glucose Point of Care 194 mg/dl (65-105)
[2022-02-08] MEDS: ACETAMINOPHEN 325 MG TABLET 650 MG PO (14:11)
[2022-02-08 16:00] VITALS: BP 149/52; PULSE 65; RESP 14; TEMP 36.4; O2SAT 100
[2022-02-08 16:48] LABS: Glucose Point of Care 191 mg/dl (65-105)
[2022-02-08 20:00] VITALS: PULSE 65; RESP 14; O2SAT 100
[2022-02-08] MEDS: MELATONIN 5 MG TABLET 10 MG PO (20:39)
[2022-02-08] MEDS: HYDROcodone/acetaminophen (*CRX) 5-325 MG TABLET 1 TAB PO (20:40)
[2022-02-08 20:43] LABS: Glucose Point of Care 228 mg/dl (65-105)
[2022-02-09] VITALS: BP 157/51; PULSE 73; RESP 15; TEMP 36.8; O2SAT 98
[2022-02-09 07:46] LABS: Glucose Point of Care 108 mg/dl (65-105)
[2022-02-09 07:54] VITALS: BP 152/54; PULSE 65; RESP 16; TEMP 36.6; O2SAT 99
[2022-02-09] MEDS: LIDOCAINE 5% PATCH 1 PATCH TRANSDERM (08:03)
[2022-02-09] MEDS: FLUTICASONE PROPIONATE 0.05% NA SPR 16 GM BTL (*BKC) 1 SPRAY NASAL ×2 (08:03→20:37)
[2022-02-09 08:04] VITALS: PULSE 65
[2022-02-09] MEDS: LOSARTAN POTASSIUM 50 MG TABLET 100 MG PO (08:04)
[2022-02-09] MEDS: guaiFENesin 12 HR 600 MG TABCR PO ×2 (08:04→20:38)
[2022-02-09] MEDS: METOPROLOL SUCCINATE EXT REL 50 MG TABCR 100 MG PO (08:04)
[2022-02-09] MEDS: ATORVASTATIN 10 MG TABLET 20 MG PO (08:04)
[2022-02-09] MEDS: traMADol HCL (*CRX) 50 MG TABLET PO (08:05)
[2022-02-09] MEDS: hydroCHLOROthiazide 25 MG TABLET PO (08:07)
[2022-02-09] MEDS: INSULIN GLARGINE (*BKC) 100 UNITS/ML 28 UNITS SUB-Q (08:08)
[2022-02-09] MEDS: ACETAMINOPHEN 325 MG TABLET 650 MG PO (10:38)
[2022-02-09 11:52] LABS: Glucose Point of Care 152 mg/dl (65-105)
[2022-02-09 16:00] VITALS: BP 150/56; PULSE 65; TEMP 36.4; O2SAT 99
[2022-02-09 16:53] LABS: Glucose Point of Care 166 mg/dl (65-105)
[2022-02-09 19:32] VITALS: PULSE 65; RESP 16; O2SAT 99
[2022-02-09] MEDS: MELATONIN 5 MG TABLET 10 MG PO (20:38)
[2022-02-09] MEDS: HYDROcodone/acetaminophen (*CRX) 5-325 MG TABLET 1 TAB PO (20:39)
[2022-02-09 20:43] LABS: Glucose Point of Care 235 mg/dl (65-105)
[2022-02-10] VITALS: BP 147/53; PULSE 65; RESP 14; TEMP 36.5; O2SAT 97
[2022-02-10] MEDS: HYDROcodone/acetaminophen (*CRX) 5-325 MG TABLET 1 TAB PO ×2 (07:22→20:03)
[2022-02-10 07:30] VITALS: BP 160/67; PULSE 63; RESP 18; TEMP 36.3; O2SAT 95
[2022-02-10 08:34] LABS: Glucose Point of Care 155 mg/dl (65-105)
[2022-02-10] MEDS: guaiFENesin 12 HR 600 MG TABCR PO ×2 (09:22→20:03)
[2022-02-10] MEDS: LOSARTAN POTASSIUM 50 MG TABLET 100 MG PO (09:22)
[2022-02-10] MEDS: LIDOCAINE 5% PATCH 1 PATCH TRANSDERM (09:22)
[2022-02-10 09:23] VITALS: PULSE 63
[2022-02-10] MEDS: hydroCHLOROthiazide 25 MG TABLET PO (09:23)
[2022-02-10] MEDS: ATORVASTATIN 10 MG TABLET 20 MG PO (09:23)
[2022-02-10] MEDS: INSULIN GLARGINE (*BKC) 100 UNITS/ML 28 UNITS SUB-Q (09:23)
[2022-02-10] MEDS: METOPROLOL SUCCINATE EXT REL 50 MG TABCR 100 MG PO (09:23)
[2022-02-10] MEDS: FLUTICASONE PROPIONATE 0.05% NA SPR 16 GM BTL (*BKC) 1 SPRAY NASAL ×2 (09:24→20:03)
[2022-02-10 11:43] LABS: Glucose Point of Care 140 mg/dl (65-105)
--- NOTE | 2022-02-10 14:06 | PM.EVENT ---
Event Note Event Note Event Note: Case management meeting held patient will discharge to NH/Assisted living home on
[2022-02-10 16:20] VITALS: BP 155/79; PULSE 63; RESP 16; TEMP 36.1; O2SAT 99
[2022-02-10] MEDS: traMADol HCL (*CRX) 50 MG TABLET PO (16:47)
[2022-02-10 17:03] LABS: Glucose Point of Care 142 mg/dl (65-105)
[2022-02-10 20:00] VITALS: PULSE 63; RESP 16; O2SAT 99
[2022-02-10] MEDS: MELATONIN 5 MG TABLET 10 MG PO (20:03)
[2022-02-10 20:08] LABS: Glucose Point of Care 187 mg/dl (65-105)
[2022-02-11] VITALS: BP 147/57; PULSE 65; RESP 15; TEMP 36.2; O2SAT 100
[2022-02-11 07:45] VITALS: BP 160/52; PULSE 63; RESP 18; TEMP 36.3; O2SAT 95
[2022-02-11] MEDS: traMADol HCL (*CRX) 50 MG TABLET PO ×2 (07:55→21:11)
[2022-02-11 08:03] LABS: Glucose Point of Care 104 mg/dl (65-105)
[2022-02-11] MEDS: INSULIN GLARGINE (*BKC) 100 UNITS/ML 28 UNITS SUB-Q (09:04)
[2022-02-11] MEDS: LIDOCAINE 5% PATCH 1 PATCH TRANSDERM (09:04)
[2022-02-11 09:05] VITALS: PULSE 63
[2022-02-11] MEDS: guaiFENesin 12 HR 600 MG TABCR PO ×2 (09:05→21:10)
[2022-02-11] MEDS: ATORVASTATIN 10 MG TABLET 20 MG PO (09:05)
[2022-02-11] MEDS: METOPROLOL SUCCINATE EXT REL 50 MG TABCR 100 MG PO (09:05)
[2022-02-11] MEDS: hydroCHLOROthiazide 25 MG TABLET PO (09:05)
[2022-02-11] MEDS: FLUTICASONE PROPIONATE 0.05% NA SPR 16 GM BTL (*BKC) 1 SPRAY NASAL ×2 (09:06→21:10)
[2022-02-11] MEDS: LOSARTAN POTASSIUM 50 MG TABLET 100 MG PO (09:06)
[2022-02-11 12:03] LABS: Glucose Point of Care 188 mg/dl (65-105)
[2022-02-11 16:30] VITALS: BP 170/54; PULSE 63; RESP 18; TEMP 36.4; O2SAT 98
--- NOTE | 2022-02-11 17:00 | PC.NURSE ---
Blood sugar result 157
[2022-02-11 18:57] LABS: Glucose Point of Care 157 mg/dl (65-105)
[2022-02-11] MEDS: MELATONIN 5 MG TABLET 10 MG PO (21:11)
[2022-02-11 21:26] LABS: Glucose Point of Care 162 mg/dl (65-105)
[2022-02-11 23:50] VITALS: BP 159/74; PULSE 76; RESP 18; TEMP 36.1; O2SAT 95
[2022-02-12] MEDS: traMADol HCL (*CRX) 50 MG TABLET PO (06:08)
[2022-02-12 07:52] LABS: Glucose Point of Care 120 mg/dl (65-105)
[2022-02-12 08:00] VITALS: BP 144/52; PULSE 73; RESP 17; TEMP 36.1; O2SAT 95
[2022-02-12] MEDS: INSULIN GLARGINE (*BKC) 100 UNITS/ML 28 UNITS SUB-Q (08:52)
[2022-02-12] MEDS: LIDOCAINE 5% PATCH 1 PATCH TRANSDERM (08:53)
[2022-02-12] MEDS: FLUTICASONE PROPIONATE 0.05% NA SPR 16 GM BTL (*BKC) 1 SPRAY NASAL (08:53)
[2022-02-12 08:54] VITALS: PULSE 73
[2022-02-12] MEDS: LOSARTAN POTASSIUM 50 MG TABLET 100 MG PO (08:54)
[2022-02-12] MEDS: ATORVASTATIN 10 MG TABLET 20 MG PO (08:54)
[2022-02-12] MEDS: hydroCHLOROthiazide 25 MG TABLET PO (08:54)
[2022-02-12] MEDS: METOPROLOL SUCCINATE EXT REL 50 MG TABCR 100 MG PO (08:54)
[2022-02-12] MEDS: guaiFENesin 12 HR 600 MG TABCR PO (08:55)
--- NOTE | 2022-02-12 09:07 | PM.DS ---
DS: Admitting Diagnosis Discharge Date 02/12/2022 Admitting Diagnosis weakness DS: Discharge Diagnosis Discharge Diagnosis (1) Constipation: Qualifiers: Constipation type: drug induced constipation Qualified Code(s): K59.03 - Drug induced constipation Code(s): K59.00 - Constipation, unspecified Status: Acute (2) Type 2 diabetes mellitus with hyperglycemia: Qualifiers: Diabetes mellitus senior care insulin use: with senior care use Qualified Code(s): E11.65 - Type 2 diabetes mellitus with hyperglycemia; Z79.4 - penitentiary (current) use of insulin Code(s): E11.65 - Type 2 diabetes mellitus with hyperglycemia Status: Chronic Assessment and Plan: Continue home medication (3) Pneumonia due to COVID-19 virus: Code(s): U07.1 - COVID-19; J12.82 - Pneumonia due to coronavirus disease 2018 Status: Acute (4) Chronic renal insufficiency, stage III (moderate): Qualifiers: Chronic kidney disease stage 3 subtype: unspecified whether 3a or 3b Qualified Code(s): N18.30 - Chronic kidney disease, stage 3 unspecified Code(s): N18.3 - Chronic kidney disease, stage 3 (moderate) Status: Chronic Assessment and Plan: Baseline 47-64, creatinine 1.6 to 2.0, GFR 21 to 29 Renal function at baseline. Patient sees Dr. Mccauley outpatient (5) Acute UTI: Code(s): N39.0 - Urinary tract infection, site not specified Status: Acute Assessment and Plan: UA +WBC and bacteria. urine culture with 100,000 CFU e.coli. cefdinir 300 mg PO daily (renal dose) completed completed (6) Weakness: Code(s): R53.1 - Weakness Status: Acute Assessment and Plan: Agent email [place] email had a history of and it like it what is it okay but (7) Fracture of greater trochanter of left femur: Qualifiers: Encounter type: initial encounter Fracture alignment: nondisplaced Fracture type: closed Qualified Code(s): S72.115A - Nondisplaced fracture of greater trochanter of left femur, initial encounter for closed fracture Code(s): S72.112A - Displaced fracture of greater trochanter of left femur, initial encounter for closed fracture Status: Acute DS: Summary Hospital Course Reason for hospitalization: weakness Hospital Course: This is a 86YO female that was admitted to [facility] with the Dx of Covid PNA and UTI.Patient admitted in swing bed for rehabilitation. Apparently patient fell from a previous hospital and had complained about hip pain x-ray completed no acute findings noted. MRI of the hip indicated a Nondisplaced avulsion fracture across the cephalad aspect of the left greater trochanter involving the footplate of the gluteus medius tendon patient was seen by orthopedics. Patient will discharged to a memory care assisted living. Discharge instructions reviewed with patient, as well as provided in writing per nursing staff. The instructions also include specific and strict return/GO TO THE ER as well as f/u information. All questions have been answered, and the patient and/or family deny any further questions with discharge and discharge plan. Time Spent with Patient Time attestation: Total time spent providing and/or coordinating discharge services: Exam Narrative: GENERAL: This is a well-nourished, well-developed patient, in no apparent distress. HEAD: normocephalic, atraumatic. EYES: PERRL. Sclera clear/white. Vision is grossly intact. EARS: External ears normal, auditory canals clear and without drainage, TMs normal without perforation. Hearing grossly intact. NOSE: External nose normal with no obvious nasal discharge, nares without redness, no rhinorrhea. THROAT: Mucous membranes moist, posterior pharynx clear. NECK: Neck supple, non-tender without lymphadenopathy, masses or thyromegaly. CARDIOVASCULAR: Regular rate and rhythm without murmurs, gallops, or rubs. RESPIRATORY: Clear to aus
[2022-02-12] MEDS: ACETAMINOPHEN 325 MG TABLET 650 MG PO (09:33)
--- NOTE | 2022-02-12 09:35 | PC.NURSE ---
Report called to [facility]. Spoke with Lori.
--- NOTE | 2022-02-12 10:55 | PC.NURSE ---
Discharge packet reviewed and given to pt's daughter. Pt assisted into personal wheelchair and transported downstairs. Pt then assisted into wheelchair van with assist of [facility] staff.
--- NOTE | 2022-02-13 10:24 | PC.NURSE ---
half-way nurse states they received and understood the discharge instructions.
== END 2022-02-12 10:55 | DRG 177 ==
PROVIDERS: Nurse Practitioner Family; Admitting Provider Internal Medicine; PCP Family Medicine; Visit Provider Internal Medicine
DX: U07.1 COVID-19 (principal); J12.82 Pneumonia due to coronavirus disease 2019; S72.115A Nondisplaced fracture of greater trochanter of left femur, initial encounter for closed fracture; R53.1 Weakness; N18.4 Chronic kidney disease, stage 4 (severe); N39.0 Urinary tract infection, site not specified; I12.9 Hypertensive chronic kidney disease with stage 1 through stage 4 chronic kidney disease, or unspecified chronic kidney disease; E11.22 Type 2 diabetes mellitus with diabetic chronic kidney disease; H40.9 Unspecified glaucoma; E78.5 Hyperlipidemia, unspecified; K59.00 Constipation, unspecified; M85.80 Other specified disorders of bone density and structure, unspecified site; E55.9 Vitamin D deficiency, unspecified; Z90.49 Acquired absence of other specified parts of digestive tract; Z87.891 Personal history of nicotine dependence; Z91.81 History of falling
CPT/HCPCS: 36415; 73721; 80048; 82948; 85027; 97014; 97110; 97161; 97165; 97530; 97535; A9270; G0283; J1815

== ENCOUNTER 2022-02-22 14:10 | Inpatient (IN) | payer MEDICARE, OTHER, SELFPAY ==
[2022-02-22] VITALS (17 sets, daily range): BP systolic 162–231; BP diastolic 67–118; PULSE 66–86; RESP 14–24; TEMP 36.2–36.7; O2SAT 92–100; BMI 35.9; BMI 36.0
--- NOTE | ~2022-02-22 | CT_ITS ---
EXAMINATION: CT cervical spine wo con DATE: 02/23/2022 02:30 INDICATION: Neck pain, confusion TECHNIQUE: Computed tomography (CT) of the cervical spine was performed without intravenous contrast. The dose-length product (DLP) was 447.73 mGy-cm. Automated exposure control and iterative reconstruc tion technique were employed. COMPARISON: None FINDINGS: There are 2 mm of retrolisthesis of C6 on C7. The C5 and C6 vertebral bodies are fused ante riorly. There is no fracture. The vertebral body heights are normal. The odontoid is intact. There is multilevel severe facet and uncovertebral joint osteoarthritis. The prevertebral soft tissues are no rmal. IMPRESSION: 1. Moderate cervical spondylosis without acute findings. Reviewed, dictated and finalized at location A. ING POLICE OFFICER
--- NOTE | ~2022-02-22 | XR_ITS ---
XR hip RT 2V w AP pelvis DATE: 02/22/2022 14:41 INDICATION: Fall. Right hip pain. TECHNIQUE: AP pelvis. AP and crosstable lateral views of right hip COMPARISON: None FINDINGS: There is a minimally displaced intra-articular fracture of the proximal right femur. Multilevel degenerative disc disease of the lumbar spine. Osteopenia Normal alignment at the pubic symphysis and sacroiliac joints. No pelvic fracture or bone destruction is detected. IMPRESSION: Right hip intertrochanteric fracture Reviewed, dictated and finalized at location A. ER SKATES ASSEMBLER
--- NOTE | ~2022-02-22 | XR_ITS ---
EXAMINATION: XR surgery orthopedic DATE: 02/24/2022 13:01 INDICATION: Right hip fracture for intertrochanteric nailing TECHNIQUE: 4 fluoroscopic images of the right hip and proximal femur were obtained during procedure p erformed by Dr. Bravo. Radiologist was not present for the imaging or procedure. The amount of fluoros copy time used during this procedure was 0.9 minutes. COMPARISON: 02/22/2022 FINDINGS: Interval open reduction internal fixation of the previously seen mildly displaced intertrochanteric f racture the proximal right femur which is now in near-anatomic alignment. The fracture is fixed with antegrade intramedullary grayson, femoral neck dynamic compression screw and distal interlocking screw fi xation and is now in near-anatomic alignment. No new fractures identified. Mild osteoarthritis of the right hip. IMPRESSION: 1. Near-anatomic alignment post open reduction and internal fixation of a right hip intertrochanteric fracture. Reviewed, dictated and finalized at location B. GAUGER
--- NOTE | ~2022-02-22 | XR_ITS ---
XR chest 1V portable DATE: 02/22/2022 14:41 INDICATION: Fall. Right hip pain. Right hip fracture. TECHNIQUE: Portable AP chest on 02/22/2022 at 1431 hours COMPARISON: 01/23/2022 portable AP chest 07/02/2020 portable AP chest FINDINGS: Cardiomegaly. Aortic calcification and mild unfolding. No hilar or mediastinal enlargement. There is mild elevation of right leaf of diaphragm. There is mild infiltrate or atelectasis in the lo wer lung zones. No pleural effusion or pulmonary vascular congestion or pneumothorax is detected. Diffuse idiopathic skeletal hyperostosis of the thoracic spine. Diffuse osteopenia. IMPRESSION: Mild infiltrate or atelectasis in the lower lung zones Cardiomegaly Osteopenia Reviewed, dictated and finalized at location A. R PRESS SUPERVISOR
--- NOTE | ~2022-02-22 | CT_ITS ---
EXAMINATION: CT brain wo con INDICATION: Confusion after fall COMPARISON: 12/22/2020 TECHNIQUE: Standard unenhanced head CT. The dose-length product (DLP) was 605.33 mGy-cm. The mA was a djusted according to patient size. Iterative reconstruction technique was employed. FINDINGS: There is no acute intraparenchymal hemorrhage. No evidence of mass lesion. No evidence of a cute infarction. There is mild periventricular and subcortical hypodensity probably related to small vessel ischemic disease. There is mild prominence of the sulci and ventricles related to cerebral atr ophy. Intracranial calcified cerebral atherosclerosis is noted. There are no extra-axial collections. There is no mass effect or midline shift. Changes in the globes are likely from ocular lens surgery. There is mild mucosal thickening of the paranasal sinuses. IMPRESSION: 1. No acute intracranial abnormality. 2. Age related findings. Reviewed, dictated and finalized at location A. CHER AROUND
--- NOTE | 2022-02-22 14:24 | ECG_ITS ---
Measurements Intervals Ledger Rate: 70 P: 55 VA: 196 QRS: -37 QRSD: 146 T: 9 QT: 444 QTc: 480 Interpretive Statements SINUS RHYTHM LEFT AXIS DEVIATION RIGHT BUNDLE BRANCH BLOCK ABNORMAL ECG COMPARED TO ECG 08/06/2021 20:07:12 NO SIGNIFICANT CHANGES Electronically Signed On 02-22-2022 15:03:41 CALENDER WIND UP TENDER by Ronald Parham D.O.
--- NOTE | 2022-02-22 15:10 | ED.LOWEXIN ---
HPI - Extremity Injury (Lower) General Chief Complaint: Extremity Injury, Lower Stated Complaint: GLF R LEG SHORT/ROTATED Time Seen by Provider: 02/22/22 14:16 History of Present Illness HPI Narrative: Patient is an 86-year-old female who presents to the ER with injury to the right hip. Patient reports she was trying to put on her shoe when she fell on right side injuring her hip. Explored and externally rotated. No numbness or tingling. She did not strike her head or lose consciousness. She lives in [facility] and has some memory difficulty however she does remember the event and she is currently oriented x3. She recently had an avulsion fracture of the left greater trochanter. Patient is not on any blood thinners. Related Data Home Medications Medication Instructions Recorded Confirmed atorvastatin 20 mg tablet 20 mg PO DAILY 01/24/22 02/18/22 insulin glargine 100 unit/mL (3 28 unit subcut DAILY 01/24/22 02/18/22 mL) subcutaneous pen (Lantus Solostar U-100 Insulin) Allergies Allergy/AdvReac Type Severity Reaction Status Date / Time TU Inhibitors Allergy Unknown Other Verified 02/18/22 10:33 Review of Systems Review of Systems: All systems reviewed & are unremarkable except as noted in HPI and below Constitutional: Constitutional: Denies chills and Denies fever(s) Cardiovascular: Cardiovascular: Denies chest pain, Denies rapid heart rate and Denies radiating jaw, neck or arm pain Respiratory: Respiratory: Denies cough and Denies dyspnea Gastrointestinal: Gastrointestinal: Denies abdominal pain, Denies nausea and Denies vomiting Musculoskeletal: Musculoskeletal: Denies back pain, Reports arthralgias and Denies joint swelling Neurologic: Denies syncope, Denies headache(s), Denies focal weakness and Denies numbness [facility] Past Medical History Medical History Anemia Chronic renal disease, stage 4, severely decreased glomerular filtration rate (GFR) between 15-29 mL/min/1.73 square meter Diabetic peripheral neuropathy Essential hypertension Fall from standing Fracture of greater trochanter of left femur Glaucoma History of diverticulitis of colon Hyperlipidemia associated with type 2 diabetes mellitus Osteopenia Type 2 diabetes mellitus Ventral hernia without obstruction or gangrene Vitamin D deficiency Surgical History Surgical History History of appendectomy History of cholecystectomy History of colectomy Due to severe diverticulitis History of colostomy reversal History of partial hysterectomy Hx of cataract extraction Status post ORIF of fracture of ankle Family History Family History Mother Asthma Family history of heart disease in male family member before age 55 Sibling Family history of Parkinson's disease, Onset Age: 86 Daughter Hypothyroidism Other Diabetes mellitus Social History Social History Social History: The patient lives home alone but her daughters check in on her. The patient walks with a walker. Her daughter Georgia rangel is a durable power orthotic/prosthetic practitioner for healthcare. The patient is a full code. The patient used to smoke many years ago. 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 The patient does not use any alcohol marijuana or illicit drugs. Smoking packs per day: 2 Smoking cigarettes per day: 40.0 Years smoked: 30 Smoking pack-years: 60.00 Smoking status: Never smoker Tobacco type: cigarettes Second hand tobacco smoke exposure: No Alcohol intake: never Substance use: never Substance use type: does not use Lack of Transportation: No Lack of Food: Never True Current Housing: I Have Housing Concerned About Future Housing: No Difficulty Paying Gas/Electric Bills: No Difficulty Paying for Meds: No
[2022-02-22 15:21] LABS: Basophils Absolute Auto 0.1 K/mm3 (0.0-0.1); Basophils Percent Auto 0.6 % (0.2-1.2); Eosinophils Absolute Auto 0.2 K/mm3 (0-0.3); Eosinophils Percent Auto 1.1 % (0-4.4); Hematocrit 30.9 % (37.0-47.0); Hemoglobin 10.2 g/dL (12.0-15.0); Immature Granulocyte Absolute 0.14 K/mm3 (0.00-0.031); Lymphocytes Absolute Auto 1.59 K/mm3 (0.9-3.2); Lymphocytes Percent Auto 11.4 % (18.3-44.2); Mean Corpuscular Hemoglobin 30.4 pg (26-34); Mean Corpuscular Volume 92.2 fl (80-100); Monocytes Absolute Auto 0.8 K/mm3 (0.1-0.6); Monocytes Percent Auto 5.4 % (2.6-8.5); Neutrophils Absolute Auto 11.3 K/mm3 (1.3-6.7); Neutrophils Percent Auto 80.5 % (45.5-73.1); Platelet Count Result 552 k/mm3 (150-375); Red Blood Count 3.35 M/mm3 (4.2-5.4)
[2022-02-22 15:28] LABS: Anion Gap 14 mmol/L (8-16); Blood Urea Nitrogen 34 mg/dL (7-17); Calcium 8.7 mg/dL (8.4-10.2); Carbon Dioxide 23 mmol/L (22-30); Chloride 101 mmol/L (98-107); Estimated CRCL calculation 26 ml/min; Estimated Glomerular Filt Rate 33; Glucose 246 mg/dL (65-110); Potassium 4.7 mmol/L (3.4-5.0); Sodium 138 mmol/L (137-145)
[2022-02-22 15:35] LABS: INR 1.1; Prothrombin Time 13.4 Seconds (11.1-14.7)
[2022-02-22 15:36] LABS: Partial Thromboplastin Time 24.8 SECONDS (22.3-36.8)
[2022-02-22 15:54] LABS: SARS-CoV-2 RNA PCR Negative
--- NOTE | 2022-02-22 17:39 | PC.NURSE ---
DESTINI RECEIVED FROM DR. RUBIN FOR IM MORPHINE
[2022-02-22] MEDS: MORPHINE SULFATE (*CRX) 4 MG/ML INJ IM (17:49)
[2022-02-22] MEDS: hydrALAZINE 10 MG TABLET PO (17:50)
--- NOTE | 2022-02-22 18:03 | PC.NURSE ---
PO HYDRALAZINE AND IM MORPHINE ORDERED FOR PT BLOOD PRESSURE AND PAIN. I SPOKE W/ A MEMBER OF THE PICC TEAM WHO WILL BE ON THEIR WAY FROM [place] SHORTLY TO INSERT MIDLINE FOR PT. DR. RUBIN ATTEMPTED US IV ACCESS AT BEDSIDE UNSUCCESSFUL.
--- NOTE | 2022-02-22 19:03 | PC.NURSE ---
PICC NURSE AT BEDSIDE STARTING MIDLINE.
--- NOTE | 2022-02-22 19:16 | PC.NURSE ---
Assumed care of pt at this time. Pt supine on stretcher A&Ox3.
--- NOTE | 2022-02-22 21:30 | PM.IMHP ---
H&P: HPI History of Present Illness Date/Time: 02/22/22 21:30 Chief Complaint: Right hip pain after fall. Narrative: This is an 86-year-old female with osteopenia, type 2 diabetes mellitus, chronic kidney disease, hypertension, and hyperlipidemia who presented to the emergency department for evaluation of right hip pain after a fall. She is alert and oriented x3 at the time my evaluation however she does appear a bit confused with regards to situation thus some of the following history is supplemented via a review of her electronic medical records. She was brought in today from [facility] for evaluation after she lost her balance time her shoes and fell onto the right side. On exam her right leg was shortened and externally rotated and she was complaining of right hip pain. Imaging today showed an intertrochanteric fracture and she is being admitted in this setting. She is not having much pain at the time my evaluation except when she attempts to move that leg. This evening she does not really recall when and how she fell and in fact she tells me that she is here because she broke both hips (recently hospitalized with an avulsion fracture of the left greater trochanter), she had surgery today, and is supposed to be going home today. She does not think she sustained any other injuries and does not believe that there was any head trauma in the fall. At the time my evaluation she denies headache, neck ache, chest pain, shortness of breath, nausea, vomiting, diarrhea, and dysuria. She also denies paresthesias, skin color, and temperature changes distal to the fracture site. Review of Systems Review of Systems: Twelve systems were reviewed. She denies cold and flu symptoms. Unaware of any sick contacts. She has not had chest pain or pleuritic pain. No shortness of breath. No nausea or vomiting. Except as documented all other systems were reviewed and are negative. [facility] Past Medical History Medical History (Updated 02/22/22 @ 23:07 by Misti Maya PA-C) Anemia Chronic renal disease, stage 4, severely decreased glomerular filtration rate (GFR) between 15-29 mL/min/1.73 square meter Diabetic peripheral neuropathy Essential hypertension Fracture of greater trochanter of left femur (01/2022) Glaucoma History of diverticulitis of colon Hyperlipidemia associated with type 2 diabetes mellitus Osteopenia Type 2 diabetes mellitus Ventral hernia without obstruction or gangrene Vitamin D deficiency Surgical History Surgical History History of appendectomy History of cholecystectomy History of colectomy Due to severe diverticulitis History of colostomy reversal History of partial hysterectomy Hx of cataract extraction Status post ORIF of fracture of ankle Family History Family History Mother Asthma Family history of heart disease in male family member before age 55 Sibling Family history of Parkinson's disease, Onset Age: 86 Daughter Hypothyroidism Other Diabetes mellitus Social History Social History (Updated 02/22/22 @ 21:01 by Misti Maya PA-C) Social History: Healthcare power of insurance attorney: Georgia Patel, daughter. Code status: Full code. Smoking packs per day: 2 Smoking cigarettes per day: 40.0 Years smoked: 30 Smoking pack-years: 60.00 Smoking status: Never smoker Tobacco type: cigarettes Second hand tobacco smoke exposure: No Alcohol intake: never Substance use: never Substance use type: does not use Lack of Transportation: No Lack of Food: Never True Current Housing: I Have Housing Concerned About Future Housing: No Difficulty Paying Gas/Electric Bills: No Difficulty Paying for Meds: No Currently Unemployed: No Education: Decline to Answer Difficulty w/ Childcare or Family Care: No Additional living arrangements comments: Lives alone. [place]
[2022-02-22] MEDS: LOSARTAN POTASSIUM 50 MG TABLET PO (22:37)
[2022-02-22] MEDS: SALINE LOCK FLUSH 10 ML IV PUSH (22:38)
[2022-02-22] MEDS: HYDROcodone/acetaminophen (*CRX) 5-325 MG TABLET 1 TAB PO (22:40)
--- NOTE | 2022-02-22 22:46 | ADMGEN ---
This patient, Elsie St, was admitted to IMU Room 207-01 at 2039. Patient/family oriented to hospital policies and general routines including ID bracelet, bed and alarms, visiting hours, pain management, procedures, bathroom and other care routines, personal items, smoking policy, room service/diet, and visiting hours. Information on how to activate the Rapid Response Team has been discussed. Patient/Family are encouraged to report perceived risks to care and to ask questions if they do not understand what they are told or what they should do.
[2022-02-23] VITALS (14 sets, daily range): BP systolic 145–193; BP diastolic 63–75; PULSE 67–88; RESP 14–32; TEMP 36.4–36.8; O2SAT 95–99
[2022-02-23 05:04] LABS: Basophils Absolute Auto 0.1 K/mm3 (0.0-0.1); Basophils Percent Auto 0.5 % (0.2-1.2); Eosinophils Absolute Auto 0.2 K/mm3 (0-0.3); Eosinophils Percent Auto 1.2 % (0-4.4); Hematocrit 28.4 % (37.0-47.0); Hemoglobin 9.3 g/dL (12.0-15.0); Immature Granulocyte Absolute 0.15 K/mm3 (0.00-0.031); Immature Granulocyte Percent A 0.9 % (0-0.5); Lymphocytes Absolute Auto 2.43 K/mm3 (0.9-3.2); Lymphocytes Percent Auto 15.2 % (18.3-44.2); Mean Corpuscular HGB Conc 32.7 g/dl (32-36); Mean Corpuscular Hemoglobin 29.8 pg (26-34); Mean Platelet Volume 8.6 fl (7.4-10.4); Monocytes Absolute Auto 1.1 K/mm3 (0.1-0.6); Monocytes Percent Auto 7.1 % (2.6-8.5); Neutrophils Percent Auto 75.1 % (45.5-73.1); Nucleated Red Blood Cells Absolute Auto 0.1 K/mm3 (0.0-0.012); Nucleated Red Blood Cells Perc 0.3 % (0.0-0.2); Platelet Count Result 406 k/mm3 (150-375); Red Blood Count 3.12 M/mm3 (4.2-5.4)
[2022-02-23 05:12] LABS: Hemoglobin A1C 7.3 % (<5.7); Magnesium 1.8 mg/dL (1.6-2.3)
[2022-02-23] MEDS: SALINE LOCK FLUSH 10 ML IV PUSH ×3 (06:11→23:14)
[2022-02-23 08:36] LABS: Glucose Point of Care 135 mg/dl (65-105)
--- NOTE | 2022-02-23 10:35 | PM.CNOR ---
Assessment and Plan Assessment and plan (1) Closed intertrochanteric fracture of right femur: Qualifiers: Encounter type: initial encounter Fracture alignment: displaced Qualified Code(s): S72.141A - Displaced intertrochanteric fracture of right femur, initial encounter for closed fracture Code(s): S72.141A - Displaced intertrochanteric fracture of right femur, initial encounter for closed fracture Status: Acute Plan 86-year-old female with an acute right hip intertrochanteric fracture. Recent left hip greater trochanteric fracture does not seem to be giving her too much trouble and I do not think is going to be an issue during her rehab. She is at increased risk for complications due to her medical status. In addition, due to her markedly decreased mobility I think that primary goal is pain control which we can accomplish by giving her a stable construct. It is going to be at least two months before she would be able to be full weight-bearing on this in all likelihood. Her risk for significant complications over the next 12-18 months is very high. I discussed all of this with the patient's daughters, one of which is her healthcare [id number]. Risks and potential complications were discussed in detail and questions answered. Anticipate surgery tomorrow mid day pending medical clearance. Thank you for the consultation. History of Present Illness HPI Consult date: 02/23/22 Consult reason: fracture Chief complaint: Intertrochanteric Fracture Right Hip Narrative: 86-year-old female who fell yesterday suffering a right intertrochanteric hip fracture. She has frequent falls as of late. Several weeks ago suffered a nonsurgical left proximal femur greater trochanteric fracture. Her ambulatory status has decreased significantly over the past year as per her daughter's who are with her here today. No other injuries with this occurrence. Answers questions appropriately. Articulates that she has pain primarily in her right hip area. Review of Systems Constitutional: Constitutional: Reports no additional constitutional complaints, Denies excessive sweating and Denies fatigue Eyes: Eyes: Reports no additional eye complaints ENT: Reports system reviewed and no additional complaints, except as documented Cardiovascular: Cardiovascular: Denies chest pain at rest and Denies dyspnea Respiratory: Respiratory: Reports no additional respiratory complaints and Denies dyspnea Gastrointestinal: Gastrointestinal: Reports no additional gastrointestinal complaints Musculoskeletal: Musculoskeletal: Reports as per HPI and Reports back pain (Chronic low back pain) Integumentary/Breasts: Skin/Breast: Reports system reviewed and no additional complaints, except as docu Neurologic: Reports as per HPI Endocrine: Endocrine: Denies excessive sweating and Denies fatigue Hematologic/Lymphatic: Hematologic/Lymphatic: Denies easy bleeding and Denies easy bruising PMFSH Past Medical History Medical History Anemia Chronic renal disease, stage 4, severely decreased glomerular filtration rate (GFR) between 15-29 mL/min/1.73 square meter Diabetic peripheral neuropathy Essential hypertension Fracture of greater trochanter of left femur (01/2022) Glaucoma History of diverticulitis of colon Hyperlipidemia associated with type 2 diabetes mellitus Osteopenia Type 2 diabetes mellitus Ventral hernia without obstruction or gangrene Vitamin D deficiency Surgical History Surgical History History of appendectomy History of cholecystectomy History of colectomy Due to severe diverticulitis History of colostomy reversal History of partial hysterectomy Hx of cataract extraction Status post ORIF of fracture of ankle Family History Family History Mother Asthma Family history of
[2022-02-23] MEDS: hydrALAZINE HCL 20 MG/ML VIAL 10 MG IV PUSH ×2 (11:56→20:35)
[2022-02-23] MEDS: MORPHINE SULFATE (*CRX) 2 MG/ML INJ IV PUSH (11:56)
[2022-02-23] MEDS: LIDOCAINE 5% PATCH 1 PATCH TRANSDERM (11:58)
[2022-02-23] MEDS: DORZOLAMIDE/TIMOLOL OPHTH SOL 10 ML BOTTLE 1 DROP EACH EYE ×2 (11:59→20:21)
[2022-02-23] MEDS: METOPROLOL SUCCINATE EXT REL 100 MG TABCR PO (12:04)
[2022-02-23] MEDS: hydroCHLOROthiazide 25 MG TABLET PO (12:05)
[2022-02-23] MEDS: LOSARTAN POTASSIUM 100 MG TABLET PO (12:05)
[2022-02-23] MEDS: HYDROcodone/acetaminophen (*CRX) 5-325 MG TABLET 1 TAB PO ×2 (12:14→20:28)
--- NOTE | 2022-02-23 12:58 | PM.IMPN ---
Progress Note: A&P Assessment and Plan (1) Closed intertrochanteric fracture of right femur: Qualifiers: Encounter type: initial encounter Fracture alignment: displaced Qualified Code(s): S72.141A - Displaced intertrochanteric fracture of right femur, initial encounter for closed fracture Code(s): S72.141A - Displaced intertrochanteric fracture of right femur, initial encounter for closed fracture Status: Acute Assessment and Plan: Sustained secondary to fall. Appreciate orthopedic surgery consultation. Planning for surgical intervention tomorrow. Continue with pain control and supportive care. She will need PT/OT eval as postoperatively (2) Frequent falls: Code(s): R29.6 - Repeated falls Status: Acute Assessment and Plan: Patient suffered fall at nursing facility. Apparently, has had several recent falls. Aside from hip, no other injuries sustained from most recent fall. Head CT and cervical spine CT showed no acute findings. Implement fall precautions. (3) Confusion: Code(s): R41.0 - Disorientation, unspecified Status: Acute Assessment and Plan: Patient confused on initial encounter. Suspect some underlying dementia. Patient is A&O x4 on my encounter today. (4) Hypertension, uncontrolled: Code(s): I10 - Essential (primary) hypertension Status: Acute Assessment and Plan: Blood pressures have been poorly controlled this admission, in the 200s systolic. Likely worsened due to pain. Slowly improving today with last BP 186/63. Continue home losartan, metoprolol succinate, hydrochlorothiazide. P.r.n. hydralazine as needed for systolic BP >165. Continue to monitor blood pressure trends closely (5) Type 2 diabetes mellitus with hyperglycemia: Qualifiers: Diabetes mellitus superintendent marine oil terminal insulin use: with superintendent marine oil terminal use Qualified Code(s): E11.65 - Type 2 diabetes mellitus with hyperglycemia; Z79.4 - FCI (current) use of insulin Code(s): E11.65 - Type 2 diabetes mellitus with hyperglycemia Status: Chronic Assessment and Plan: A1c is 7.3. Continue Accu-Cheks, low-dose sliding scale insulin, and home Lantus 28 units qHS. Monitor glucose trends and adjust insulin regimen as needed. (6) Chronic kidney disease, stage 4 (severe): Code(s): N18.4 - Chronic kidney disease, stage 4 (severe) Status: Acute Assessment and Plan: Kidney function appears consistent with baseline, even slightly improved. Monitor renal function (7) Leukocytosis: Code(s): D72.829 - Elevated white blood cell count, unspecified Status: Acute Assessment and Plan: Slight increase in WBC to 16 today. Review of prior labs suggesting chronic, mild elevation. Acute increase may be reactive secondary to fall. No signs/symptoms to suggest underlying infectious etiology. UA without concerns for infection. CXR slightly abnormal, favor atelectasis over infiltrate and patient is asymptomatic. Incentive spirometry provided, patient will likely need some assistance to utilize. Continue to monitor CBC Subjective Date/time seen: 02/23/22 12:58 Interval history: Date of service: 02/23/2022 Elsie cantu is an 86-year-old female with a history of osteopenia, anemia, CKD, hypertension, type 2 diabetes mellitus, glaucoma, diverticulitis, and ventral hernia who is seen in follow-up for right hip fracture. Patient is asleep on my encounter but does awake easily to light physical stimuli. She complains of feeling fatigued. She states that her hip hurts in the lid time is better is when she is asleep. She states that talking hurts her hip more. She currently rates her pain as 5/10. She also has some back discomfort which she attributes to the position she is lying in. She denies abdominal pain, nausea, vomiting, fever, or chills. She is tolerating her diet. No shortness of breath or chest pain
[2022-02-23 13:21] LABS: Glucose Point of Care 152 mg/dl (65-105)
[2022-02-23 16:23] LABS: Glucose Point of Care 132 mg/dl (65-105)
[2022-02-23] MEDS: ATORVASTATIN 20 MG TABLET PO (17:28)
[2022-02-23 20:09] LABS: Glucose Point of Care 129 mg/dl (65-105)
[2022-02-23] MEDS: INSULIN GLARGINE (*BKC) 100 UNITS/ML 28 UNITS SUB-Q (20:27)
--- NOTE | 2022-02-23 21:30 | PC.NURSE ---
This patient, Elsie St, was received from [ ] on 02/24/22 at 2354. Patient/family oriented to unit policies and routines
[2022-02-24] VITALS (20 sets, daily range): BP systolic 138–215; BP diastolic 46–70; PULSE 66–79; RESP 13–22; TEMP 36.1–36.9; O2SAT 92–100
[2022-02-24] MEDS: HYDROcodone/acetaminophen (*CRX) 5-325 MG TABLET 1 TAB PO ×3 (04:57→20:26)
[2022-02-24] MEDS: MORPHINE SULFATE (*CRX) 2 MG/ML INJ IV PUSH (04:58)
[2022-02-24 05:18] LABS: Basophils Percent Auto 0.3 % (0.2-1.2); Eosinophils Absolute Auto 0.3 K/mm3 (0-0.3); Eosinophils Percent Auto 2.2 % (0-4.4); Hematocrit 27.3 % (37.0-47.0); Hemoglobin 9.1 g/dL (12.0-15.0); Immature Granulocyte Absolute 0.16 K/mm3 (0.00-0.031); Immature Granulocyte Percent A 1.1 % (0-0.5); Lymphocytes Absolute Auto 2.58 K/mm3 (0.9-3.2); Lymphocytes Percent Auto 17.4 % (18.3-44.2); Mean Corpuscular HGB Conc 33.3 g/dl (32-36); Mean Corpuscular Hemoglobin 29.5 pg (26-34); Mean Corpuscular Volume 88.6 fl (80-100); Mean Platelet Volume 8.4 fl (7.4-10.4); Monocytes Absolute Auto 1.4 K/mm3 (0.1-0.6); Monocytes Percent Auto 9.6 % (2.6-8.5); Neutrophils Absolute Auto 10.3 K/mm3 (1.3-6.7); Neutrophils Percent Auto 69.4 % (45.5-73.1); Platelet Count Result 389 k/mm3 (150-375); Red Blood Count 3.08 M/mm3 (4.2-5.4); Red Cell Distribution Width 12.2 % (11.5-14.5); White Blood Count 14.9 K/mm3 (4.5-10.0)
[2022-02-24 05:26] LABS: Sodium 136 mmol/L (137-145)
[2022-02-24 05:29] LABS: Anion Gap 9 mmol/L (8-16); Blood Urea Nitrogen 32 mg/dL (7-17); Calcium 8.4 mg/dL (8.4-10.2); Carbon Dioxide 26 mmol/L (22-30); Chloride 101 mmol/L (98-107); Estimated CRCL calculation 22 ml/min; Estimated Glomerular Filt Rate 29; Glucose 87 mg/dL (65-110); Potassium 3.9 mmol/L (3.4-5.0)
[2022-02-24] MEDS: SALINE LOCK FLUSH 10 ML IV PUSH (06:36)
[2022-02-24 07:56] LABS: Glucose Point of Care 87 mg/dl (65-105)
[2022-02-24] MEDS: DORZOLAMIDE/TIMOLOL OPHTH SOL 10 ML BOTTLE 1 DROP EACH EYE ×2 (08:29→20:15)
[2022-02-24] MEDS: FLUTICASONE PROPIONATE 0.05% NA SPR 16 GM BTL (*BKC) 1 SPRAY NASAL (08:29)
[2022-02-24] MEDS: LOSARTAN POTASSIUM 100 MG TABLET PO (08:29)
[2022-02-24] MEDS: METOPROLOL SUCCINATE EXT REL 100 MG TABCR PO (08:29)
[2022-02-24] MEDS: hydroCHLOROthiazide 25 MG TABLET PO (08:29)
--- NOTE | 2022-02-24 10:39 | PC.NURSE ---
To OR per [bed ]. Report given to [ SALOME Renner @ [phone]].
--- NOTE | 2022-02-24 10:57 | WPDANESEPPF ---
Anes - Initial Pre Proc Eval Procedure: Operation Date: 02/24/22 12:00 Proposed Procedures p Right Intertrochanteric Nail - Kendell Bravo MD Date/Time: 02/24/22 10:57 Surgeon: Gris Berry PA-C Pre Op Diagnosis: Intertrochanteric Fracture Right Hip Patient Data Age: 86 Gender: F Height: 1.55 m Weight: 86.5 kg Last Vital Signs Temp 36.4 C L 02/24/22 08:19 Pulse 78 02/24/22 08:29 Resp 20 02/24/22 08:19 BP 169/57 H 02/24/22 08:19 Pulse Ox 96 02/24/22 08:19 O2 Del Method Room Air 02/24/22 04:00 Allergies Allergy/AdvReac Type Severity Reaction Status Date / Time TU Inhibitors Allergy Unknown Other Verified 02/24/22 11:03 Home Medications Medication Instructions Recorded Confirmed Type hydrochlorothiazide 25 mg tablet 25 mg PO DAILY #90 tabs 09/12/21 02/22/22 Rx losartan 100 mg tablet 100 mg PO DAILY #90 tabs 09/12/21 02/22/22 Rx metoprolol succinate 100 mg 100 mg PO DAILY #90 tabs 12/11/21 02/22/22 Rx tablet,extended release 24 hr atorvastatin 20 mg tablet 20 mg PO QPM 01/24/22 02/22/22 History insulin glargine 100 unit/mL (3 28 unit subcut HS 01/24/22 02/22/22 History mL) subcutaneous pen (Lantus Solostar U-100 Insulin) acetaminophen 325 mg tablet (Mapap 650 mg PO Q4H PRN Mild Pain (1-3) 01/28/22 02/22/22 Rx (acetaminophen)) Or Fever #7 tabs albuterol sulfate 90 mcg/actuation 2 puff inhalation Q4HRT PRN 01/28/22 02/22/22 Rx aerosol inhaler (Proventil HFA) Shortness Of Breath Or Wheezing #6.7 grams fluticasone propionate 50 1 spray intranasal Q12HR #16 grams 01/28/22 02/22/22 Rx mcg/actuation nasal spray,suspension guaifenesin 600 mg tablet, 600 mg PO Q12HR #7 tabs 01/28/22 02/22/22 Rx extended release 12 hr (Mucus Relief ER) lidocaine 5 % topical patch 1 patch transdermal DAILY #7 ea 01/28/22 02/22/22 Rx (Lidoderm) calcium carbonate 500 mg calcium 500 mg PO BID PRN dyspepsia #60 02/11/22 02/22/22 Rx (1,250 mg) tablet tabs diclofenac sodium 1 % topical gel 4 g topical QID PRN joint pain 02/11/22 02/22/22 Rx #100 grams dorzolamide 22.3 mg-timolol 6.8 1 drp EACH EYE Q12H 02/22/22 02/22/22 History mg/mL eye drops polyethylene glycol 3350 17 gram 17 g PO QAM 02/22/22 02/22/22 History oral powder packet (Miralax) sennosides 8.6 mg-docusate sodium 1 tab-cap PO DAILY 02/22/22 02/22/22 History 50 mg tablet (Senokot-S) tramadol 50 mg tablet 50 mg PO Q6H PRN Pain (Scale Score 02/22/22 02/22/22 History 4-6) Laboratory Tests 02/23/22 02/23/22 02/23/22 12:30 16:06 20:02 WBC RBC Hgb Hct MCV MCH MCHC RDW Plt Count MPV Immature Gran % (Auto) Neut % (Auto) Lymph % (Auto) [place] % (Auto) Eos % (Auto) Baso % (Auto) Lymph # (Auto) [place] # (Auto) Eos # (Auto) Baso # (Auto) Abs Immat Gran (auto) Absolute Neuts (auto) Absolute Nucleated RBC Nucleated RBC % Sodium Potassium Chloride Carbon Dioxide Anion Gap BUN Creatinine Estim Creat Clear Calc Estimated GFR Glucose POC Capillary Glucose 152 mg/dl H mg/dl 132 mg/dl H mg/dl 129 mg/dl H mg/dl (65-105) (65-105) (65-105) Calcium 02/24/22 02/24/22 02/24/22 04:56 04:56 07:30 WBC 14.9 K/mm3 H K/mm3 (4.5-10.0) RBC 3.08 M/mm3 L M/mm3 (4.2-5.4) Hgb 9.1 g/dL L g/dL (12.0-15.0) Hct 27.3 % L % (37.0-47.0) MCV 88.6 fl fl (80-100) MCH 29.5 pg pg (26-34) MCHC 33.3 g/dl g/dl (32-36) RDW 12.2 % % (11.5-14.5) Plt Count 389 k/mm3 H k/mm3 (150-375)
[2022-02-24] MEDS: LACTATED RINGERS 1,000 ML 30 ML IV CONT ×2 (11:00→13:23)
[2022-02-24 11:13] LABS: Glucose Point of Care 85 mg/dl (65-105)
--- NOTE | 2022-02-24 11:17 | WPDHPUPDATE1 ---
History and Physical Update Update Date/Time: 02/24/22 11:17 History and Physical has been reviewed, including an updated exam of the patient. There are NO changes in the patient's condition. Risks, benefits, and alternatives have been discussed and questions answered. Patient agrees to proceed with procedure.
[2022-02-24] MEDS: ceFAZolin 2 GM/D5W 50 ML 2 GM/50 ML BAG IVPB ×2 (11:53→17:16)
[2022-02-24] MEDS: hydrALAZINE HCL 20 MG/ML VIAL 10 MG IV PUSH ×2 (13:42→14:58)
--- NOTE | 2022-02-24 13:48 | W.PM.PROC2 ---
Procedure Note - Detailed Date of Procedure 02/24/22 Pre-op Diagnosis Intertrochanteric Fracture Right Hip Post-op Diagnosis Same Procedure Performed ORIF right IT hip fracture Surgeon Kendell Bravo MD Separator Inserter Massiel Parada Anesthesia General Description of Procedure The patient was identified and proper site identified, then was taken to the operating room and after general anesthetic induction and intubation was transferred to the [place] table positioning supine taking care to properly pad position the torso and extremities. A provisional reduction was able to be obtained with fluoroscopic assistance. The right hip and thigh was then prepped and draped in the usual sterile fashion. A short incision was made proximal to the tip of the greater trochanter. Subcutaneous tissue was sharply dissected down to the gluteus fascia which was incised over the tip of the greater trochanter. An awl was used to create a starting hole through which a guide grayson was inserted into the femoral canal verifying its position fluoroscopically. The one-step Reamer was used to prepare the entry point for the grayson. A 125 degree, 180 millimeter by 9 millimeter short nail was then inserted to the appropriate level using the targeting device. Through a 2nd more distal incision under fluoroscopic visualization a 100 mm lag screw was inserted over a guidewire into the femoral neck and head securing it with the set screw. Through a 3rd more distal incision, using the targeting device, a distal interlocking screw was placed. The overall construct was assessed fluoroscopically on the AP and lateral views, and was noted to be satisfactory. The targeting device was removed. The wounds were irrigated with sterile antibiotic solution. The fascia was reapproximated with 0 Vicryl as was the deeper layers of the subcu. Skin edges were reapproximated with three 0 V lock and minda. Sterile dressing was applied. The procedure was well tolerated. There were no known intraoperative complications. Perioperative antibiotics were administered. Estimated Blood Loss -50.0 Urine Output -200.0 Drains No Packing No Pathology None sent Complications No immediate complications Condition Stable Disposition PACU
--- NOTE | 2022-02-24 13:58 | SUR.PHASEI ---
1357: Simple mask removed.
[2022-02-24 14:04] LABS: Glucose Point of Care 107 mg/dl (65-105)
[2022-02-24] MEDS: fentaNYL CITRATE INJ (*CRX) 100 MCG/2 ML VIAL 25 MCG IV PUSH ×2 (14:17→14:22)
--- NOTE | 2022-02-24 14:47 | PC.NURSE ---
Returned from OR per [bed ]. Report received from [ SALOME Meng @ [phone]].
[2022-02-24] MEDS: SODIUM CHLORIDE 0.9% IV 1,000 ML 125 ML IV CONT ×2 (14:58→22:40)
--- NOTE | 2022-02-24 15:33 | PM.IMPN ---
Progress Note: A&P Assessment and Plan (1) Closed intertrochanteric fracture of right femur: Qualifiers: Encounter type: initial encounter Fracture alignment: displaced Qualified Code(s): S72.141A - Displaced intertrochanteric fracture of right femur, initial encounter for closed fracture Code(s): S72.141A - Displaced intertrochanteric fracture of right femur, initial encounter for closed fracture Status: Acute Assessment and Plan: Sustained secondary to fall. Appreciate orthopedic surgery consultation. Planning for surgical intervention this afternoon. Continue with pain control and supportive care. plan for PT/OT eval as postoperatively. DVT prophylaxis defer to Orthopedic surgery (2) Frequent falls: Code(s): R29.6 - Repeated falls Status: Acute Assessment and Plan: Patient suffered fall at nursing facility. Apparently, has had several recent falls. Aside from hip, no other injuries sustained from most recent fall. Head CT and cervical spine CT showed no acute findings. Implement fall precautions. (3) Confusion: Code(s): R41.0 - Disorientation, unspecified Status: Resolved Assessment and Plan: Resolved. Patient confused on initial encounter. Suspect some underlying dementia. Patient is A&O x4 on my encounter today. (4) Hypertension, uncontrolled: Code(s): I10 - Essential (primary) hypertension Status: Chronic Assessment and Plan: Blood pressures poorly controlled initially, in the 200s systolic. Likely worsened due to pain. BP is improved with last BP 149/46. Continue home losartan, metoprolol succinate, hydrochlorothiazide. P.r.n. hydralazine as needed for systolic BP >165. Continue to monitor blood pressure trends closely (5) Type 2 diabetes mellitus with hyperglycemia: Qualifiers: Diabetes mellitus long-term insulin use: with fondant puff maker use Qualified Code(s): E11.65 - Type 2 diabetes mellitus with hyperglycemia; Z79.4 - group segment consultant (current) use of insulin Code(s): E11.65 - Type 2 diabetes mellitus with hyperglycemia Status: Chronic Assessment and Plan: A1c is 7.3. Continue Accu-Cheks, low-dose sliding scale insulin, and home Lantus with 20% dose reduction (22 units qHS). Monitor glucose trends and adjust insulin regimen as needed. (6) Chronic kidney disease, stage 4 (severe): Code(s): N18.4 - Chronic kidney disease, stage 4 (severe) Status: Acute Assessment and Plan: Creatinine appears consistent with baseline Monitor renal function (7) Leukocytosis: Code(s): D72.829 - Elevated white blood cell count, unspecified Status: Acute Assessment and Plan: Improved today. Review of prior labs suggesting chronic, mild elevation. Acute increase may be reactive secondary to fall. No signs/symptoms to suggest underlying infectious etiology. UA without concerns for infection. CXR slightly abnormal, favor atelectasis over infiltrate and patient is asymptomatic. Incentive spirometry provided, patient will likely need some assistance to utilize. Continue to monitor CBC Subjective Date/time seen: 02/24/22 15:33 Interval history: Date of service: 02/24/2022 Elsie cantu is an 86-year-old female with a history of osteopenia, anemia, CKD, hypertension, type 2 diabetes mellitus, glaucoma, diverticulitis, and ventral hernia who is seen in follow-up for right hip fracture. she states that she is doing well today. She has seen prior to going down for surgery. States that her pain is slightly improved today. She did have trouble sleeping last night. She complains of sinus congestion today. She denies shortness of breath, cough, chest pain. Reports having a bowel movement yesterday. She denies abdominal pain, nausea, vomiting, fever, or chills. She has been NPO today for surgery Review of Systems Review of Systems: All systems reviewe
--- NOTE | 2022-02-24 15:59 | PCPTNOTE ---
Attempted PT evaluation, per RN, pt is too sedated from medication to participate in Therapy. Will Follow.
[2022-02-24 16:52] LABS: Glucose Point of Care 143 mg/dl (65-105)
[2022-02-24] MEDS: HYDROcodone/acetaminophen (*CRX) 5-325 MG TABLET 2 TAB PO (17:15)
[2022-02-24] MEDS: ATORVASTATIN 20 MG TABLET PO (17:16)
[2022-02-24] MEDS: FAMOTIDINE 20 MG TABLET PO (20:16)
[2022-02-24] MEDS: INSULIN GLARGINE (*BKC) 100 UNITS/ML 22 UNITS SUB-Q (20:23)
--- NOTE | 2022-02-24 21:30 | PC.NURSE ---
This patient, Elsie St, was received from [ ] on 02/24/22 at 0146. Patient/family oriented to unit policies and routines
--- NOTE | 2022-02-24 22:46 | PC.NURSE ---
This patient, Elsie St, was transferred to [[id number]] on 02/24/22 at 2246. Personal belongings sent with patient. Report given to [SALOME Ritter]. Appropriate documentation sent with patient.
[2022-02-25 00:17] VITALS: BP 150/90; PULSE 80; RESP 18; TEMP 36.6; O2SAT 93
[2022-02-25] MEDS: ceFAZolin 2 GM/D5W 50 ML 2 GM/50 ML BAG IVPB ×2 (01:59→11:31)
[2022-02-25 04:17] VITALS: BP 148/55; PULSE 84; RESP 20; TEMP 36.6; O2SAT 93
[2022-02-25 05:28] LABS: Basophils Percent Auto 0.3 % (0.2-1.2); Eosinophils Absolute Auto 0.1 K/mm3 (0-0.3); Eosinophils Percent Auto 0.8 % (0-4.4); Hematocrit 23.9 % (37.0-47.0); Hemoglobin 7.8 g/dL (12.0-15.0); Immature Granulocyte Absolute 0.15 K/mm3 (0.00-0.031); Lymphocytes Absolute Auto 1.64 K/mm3 (0.9-3.2); Lymphocytes Percent Auto 11.5 % (18.3-44.2); Mean Corpuscular HGB Conc 32.6 g/dl (32-36); Mean Corpuscular Hemoglobin 29.8 pg (26-34); Mean Corpuscular Volume 91.2 fl (80-100); Mean Platelet Volume 8.8 fl (7.4-10.4); Monocytes Absolute Auto 1.5 K/mm3 (0.1-0.6); Monocytes Percent Auto 10.3 % (2.6-8.5); Neutrophils Absolute Auto 10.9 K/mm3 (1.3-6.7); Neutrophils Percent Auto 76.1 % (45.5-73.1); Platelet Count Result 326 k/mm3 (150-375); Red Blood Count 2.62 M/mm3 (4.2-5.4); Red Cell Distribution Width 12.5 % (11.5-14.5); White Blood Count 14.3 K/mm3 (4.5-10.0)
[2022-02-25 05:31] LABS: Anion Gap 10 mmol/L (8-16); Blood Urea Nitrogen 34 mg/dL (7-17); Calcium 7.6 mg/dL (8.4-10.2); Carbon Dioxide 23 mmol/L (22-30); Chloride 105 mmol/L (98-107); Estimated CRCL calculation 22 ml/min; Estimated Glomerular Filt Rate 27; Glucose 93 mg/dL (65-110); Potassium 3.9 mmol/L (3.4-5.0); Sodium 138 mmol/L (137-145)
[2022-02-25] MEDS: LIDOCAINE 5% PATCH 1 PATCH TRANSDERM (08:14)
[2022-02-25] MEDS: METOPROLOL SUCCINATE EXT REL 100 MG TABCR PO (08:15)
[2022-02-25] MEDS: polyethylene glycoL 3350 17 GM POWD.PACK PO (08:15)
[2022-02-25] MEDS: SENNA/DOCUSATE SODIUM TABLET 2 TAB PO ×2 (08:15→17:06)
[2022-02-25] MEDS: APIXABAN 2.5 MG TABLET PO ×2 (08:16→20:22)
[2022-02-25] MEDS: hydroCHLOROthiazide 25 MG TABLET PO (08:16)
[2022-02-25] MEDS: LOSARTAN POTASSIUM 100 MG TABLET PO (08:16)
[2022-02-25] MEDS: FAMOTIDINE 20 MG TABLET PO ×2 (08:16→20:22)
[2022-02-25] MEDS: DORZOLAMIDE/TIMOLOL OPHTH SOL 10 ML BOTTLE 1 DROP EACH EYE ×2 (08:16→20:22)
[2022-02-25 08:17] VITALS: BP 175/49; PULSE 81; RESP 20; TEMP 36.6; O2SAT 94
[2022-02-25] MEDS: FLUTICASONE PROPIONATE 0.05% NA SPR 16 GM BTL (*BKC) 1 SPRAY NASAL ×2 (08:17→20:22)
--- NOTE | 2022-02-25 08:18 | PCOTNOTE ---
Attempted OT evaluation, Patient initially agreeable to getting up to a chair. Patient then became not agreeable reporting I do not want to do this you are trying to hurt me and be mean to me . Despite encouragement to participate with therapy patient adamantly refused. Will follow.
--- NOTE | 2022-02-25 08:21 | PCPTNOTE ---
Attempted PT Evaluation, patient adamantly refusing stating she is in too much pain. RN in room during pt refusal. Will follow.
[2022-02-25] MEDS: HYDROcodone/acetaminophen (*CRX) 5-325 MG TABLET 1 TAB PO ×2 (08:52→13:31)
[2022-02-25 09:07] LABS: Glucose Point of Care 89 mg/dl (65-105)
--- NOTE | 2022-02-25 10:29 | PHAR ---
02/24 [place] dose administered at 1715 was #2 tablets, not #1. Nurse charted as #1 given. Documented correctly as #2 tablets, unable to remove #1 tablet charting from patient's profile
[2022-02-25 12:39] LABS: Glucose Point of Care 105 mg/dl (65-105)
--- NOTE | 2022-02-25 14:27 | WPDANESPN ---
Anes - Prog Note Post-Op Date/Time: 02/25/22 14:27 Vital Signs: Last Vital Signs Temp 36.6 C 02/25/22 08:17 Pulse 81 02/25/22 08:17 Resp 20 02/25/22 08:17 BP 175/49 H 02/25/22 08:17 Pulse Ox 94 02/25/22 08:17 O2 Del Method Room Air 02/25/22 10:25 O2 Flow Rate 3 02/24/22 14:20 Pain Score (VAS): 5-patient reports pain that is moderate at times but being controlled with oral medication I/O: Intake & Output 02/24/22 02/25/22 02/25/22 23:59 07:59 15:59 Intake Total 1050 50 240 Output Total 50 200 Balance 1000 -150 240 Laboratory Tests 02/25/22 05:06 02/25/22 05:06 02/24/22 02/25/22 02/25/22 16:43 05:06 05:06 WBC 14.3 H RBC 2.62 L Hgb 7.8 L Hct 23.9 L MCV 91.2 MCH 29.8 MCHC 32.6 RDW 12.5 Plt Count 326 MPV 8.8 Immature Gran % (Auto) 1.0 H Neut % (Auto) 76.1 H Lymph % (Auto) 11.5 L [place] % (Auto) 10.3 H Eos % (Auto) 0.8 Baso % (Auto) 0.3 Lymph # (Auto) 1.64 [place] # (Auto) 1.5 H Eos # (Auto) 0.1 Baso # (Auto) 0.0 Abs Immat Gran (auto) 0.15 H Absolute Neuts (auto) 10.9 H Absolute Nucleated RBC 0.0 Nucleated RBC % 0.0 Sodium 138 Potassium 3.9 Chloride 105 Carbon Dioxide 23 Anion Gap 10 BUN 34 H Creatinine 1.80 H Estim Creat Clear Calc 22 Estimated GFR 27 L Glucose 93 POC Capillary Glucose 143 H Calcium 7.6 L 02/25/22 02/25/22 08:59 12:32 WBC RBC Hgb Hct MCV MCH MCHC RDW Plt Count MPV Immature Gran % (Auto) Neut % (Auto) Lymph % (Auto) [place] % (Auto) Eos % (Auto) Baso % (Auto) Lymph # (Auto) [place] # (Auto) Eos # (Auto) Baso # (Auto) Abs Immat Gran (auto) Absolute Neuts (auto) Absolute Nucleated RBC Nucleated RBC % Sodium Potassium Chloride Carbon Dioxide Anion Gap BUN Creatinine Estim Creat Clear Calc Estimated GFR Glucose POC Capillary Glucose 89 105 Calcium Patient Feedback: Patient satisfied with anesthetic care.
--- NOTE | 2022-02-25 16:15 | PM.IMPN ---
Progress Note: A&P Assessment and Plan (1) Closed intertrochanteric fracture of right femur: Qualifiers: Encounter type: initial encounter Fracture alignment: displaced Qualified Code(s): S72.141A - Displaced intertrochanteric fracture of right femur, initial encounter for closed fracture Code(s): S72.141A - Displaced intertrochanteric fracture of right femur, initial encounter for closed fracture Status: Acute Assessment and Plan: Sustained secondary to fall. Appreciate orthopedic surgery consultation. underwent ORIF on 02/24/2022 and tolerated this procedure well. Continue PT/ OT. Likely will need SNF following discharge. Continue low-dose Eliquis 2.5 mg b.i.d. for DVT prophylaxis per Orthopedic surgery. Continue pain control and supportive care. Plan for voiding trial 1st thing tomorrow morning. (2) Frequent falls: Code(s): R29.6 - Repeated falls Status: Acute Assessment and Plan: Patient suffered fall at nursing facility. Apparently, has had several recent falls. Aside from hip, no other injuries sustained from most recent fall. Head CT and cervical spine CT showed no acute findings. Implement fall precautions. (3) Confusion: Code(s): R41.0 - Disorientation, unspecified Status: Resolved Assessment and Plan: Patient confused on initial encounter and do suspect some underlying dementia. Patient is A&O x4 but exhibits some mild confusion. Continue to monitor mental status (4) Hypertension, uncontrolled: Code(s): I10 - Essential (primary) hypertension Status: Chronic Assessment and Plan: Blood pressures poorly controlled initially, in the 200s systolic. BP improved postoperatively. Continue home losartan, metoprolol succinate, hydrochlorothiazide. P.r.n. hydralazine as needed for systolic BP >165. Continue to monitor blood pressure trends closely (5) Type 2 diabetes mellitus with hyperglycemia: Qualifiers: Diabetes mellitus remote computer terminal operator insulin use: with penitentiary use Qualified Code(s): E11.65 - Type 2 diabetes mellitus with hyperglycemia; Z79.4 - shelter (current) use of insulin Code(s): E11.65 - Type 2 diabetes mellitus with hyperglycemia Status: Chronic Assessment and Plan: A1c is 7.3. Continue Accu-Cheks, low-dose sliding scale insulin, and home Lantus with 20% dose reduction (22 units qHS). Monitor glucose trends and adjust insulin regimen as needed. (6) Chronic kidney disease, stage 4 (severe): Code(s): N18.4 - Chronic kidney disease, stage 4 (severe) Status: Acute Assessment and Plan: Creatinine appears consistent with baseline Monitor renal function (7) Leukocytosis: Code(s): D72.829 - Elevated white blood cell count, unspecified Status: Acute Assessment and Plan: Trending down. Review of prior labs suggests chronic, mild elevation. Acute increase may be reactive secondary to fall. No signs/symptoms to suggest underlying infectious etiology. UA without concerns for infection. CXR slightly abnormal, favor atelectasis over infiltrate and patient is asymptomatic. Incentive spirometry provided, patient will likely need some assistance to utilize. Continue to monitor CBC Subjective Date/time seen: 02/25/22 16:16 Interval history: Date of service: 02/25/2022 Elsie cantu is an 86-year-old female with a history of osteopenia, anemia, CKD, hypertension, type 2 diabetes mellitus, glaucoma, diverticulitis, and ventral hernia who is seen in follow-up for right hip fracture. she is now s/p ORIF. she tolerated the procedure well. She complains of 8/10 hip soreness. She was able to get out of bed today with a Jeff lift and is sitting up in the chair. She denies shortness of breath, cough, chest pain, nausea, vomiting, fever, or chills. She does seem to be somewhat confused, stating that she was gone from the room earlier today to
[2022-02-25 16:17] VITALS: BP 152/56; PULSE 75; RESP 18; TEMP 36.4; O2SAT 94
[2022-02-25] MEDS: ATORVASTATIN 20 MG TABLET PO (17:06)
[2022-02-25 17:16] LABS: Glucose Point of Care 152 mg/dl (65-105)
[2022-02-25 19:23] VITALS: BP 138/53; PULSE 76; RESP 16; TEMP 36.6; O2SAT 95
[2022-02-25] MEDS: INSULIN GLARGINE (*BKC) 100 UNITS/ML 22 UNITS SUB-Q (20:24)
[2022-02-25] MEDS: HYDROcodone/acetaminophen (*CRX) 5-325 MG TABLET 2 TAB PO (20:34)
[2022-02-25 20:40] LABS: Glucose Point of Care 218 mg/dl (65-105)
[2022-02-26 05:21] VITALS: BP 159/55; PULSE 72; RESP 18; TEMP 36.6; O2SAT 95
[2022-02-26 05:39] LABS: Hematocrit 23.2 % (37.0-47.0); Hemoglobin 7.4 g/dL (12.0-15.0); Mean Corpuscular HGB Conc 31.9 g/dl (32-36); Mean Platelet Volume 9.1 fl (7.4-10.4); Platelet Count Result 322 k/mm3 (150-375); Red Blood Count 2.55 M/mm3 (4.2-5.4); Red Cell Distribution Width 12.5 % (11.5-14.5); White Blood Count 15.1 K/mm3 (4.5-10.0)
[2022-02-26 06:07] LABS: Anion Gap 11 mmol/L (8-16); Blood Urea Nitrogen 40 mg/dL (7-17); Calcium 7.9 mg/dL (8.4-10.2); Carbon Dioxide 25 mmol/L (22-30); Chloride 101 mmol/L (98-107); Estimated CRCL calculation 19 ml/min; Estimated Glomerular Filt Rate 22; Glucose 125 mg/dL (65-110); Potassium 3.7 mmol/L (3.4-5.0); Sodium 137 mmol/L (137-145)
[2022-02-26 08:43] LABS: Glucose Point of Care 124 mg/dl (65-105)
[2022-02-26] MEDS: APIXABAN 2.5 MG TABLET PO ×2 (09:48→20:21)
[2022-02-26] MEDS: DORZOLAMIDE/TIMOLOL OPHTH SOL 10 ML BOTTLE 1 DROP EACH EYE ×2 (09:48→20:21)
[2022-02-26] MEDS: FLUTICASONE PROPIONATE 0.05% NA SPR 16 GM BTL (*BKC) 1 SPRAY NASAL ×2 (09:48→20:21)
[2022-02-26] MEDS: SENNA/DOCUSATE SODIUM TABLET 2 TAB PO ×2 (09:48→17:09)
[2022-02-26] MEDS: FAMOTIDINE 20 MG TABLET PO ×2 (09:48→20:21)
[2022-02-26] MEDS: LOSARTAN POTASSIUM 100 MG TABLET PO (09:49)
[2022-02-26] MEDS: hydroCHLOROthiazide 25 MG TABLET PO (09:49)
[2022-02-26] MEDS: polyethylene glycoL 3350 17 GM POWD.PACK PO (09:49)
[2022-02-26] MEDS: LIDOCAINE 5% PATCH 1 PATCH TRANSDERM (09:49)
[2022-02-26 09:51] VITALS: PULSE 77
[2022-02-26] MEDS: METOPROLOL SUCCINATE EXT REL 100 MG TABCR PO (09:51)
[2022-02-26] MEDS: HYDROcodone/acetaminophen (*CRX) 5-325 MG TABLET 1 TAB PO ×2 (10:03→18:54)
[2022-02-26 12:28] LABS: Glucose Point of Care 174 mg/dl (65-105)
[2022-02-26 14:13] VITALS: BP 153/64; PULSE 68; RESP 18; TEMP 36.8; O2SAT 93
--- NOTE | 2022-02-26 14:15 | PM.IMPN ---
Progress Note: A&P Assessment and Plan (1) Closed intertrochanteric fracture of right femur: Qualifiers: Encounter type: initial encounter Fracture alignment: displaced Qualified Code(s): S72.141A - Displaced intertrochanteric fracture of right femur, initial encounter for closed fracture Code(s): S72.141A - Displaced intertrochanteric fracture of right femur, initial encounter for closed fracture Status: Acute Assessment and Plan: Sustained secondary to fall. Appreciate orthopedic surgery consultation. underwent ORIF on 02/24/2022 and tolerated this procedure well. Continue PT/ OT. Continue low-dose Eliquis 2.5 mg b.i.d. for DVT prophylaxis per Orthopedic surgery. Continue pain control and supportive care. Discontinue Viramontes catheter in proceed with voiding trial today. Plan for discharge to [facility] tomorrow (2) Frequent falls: Code(s): R29.6 - Repeated falls Status: Acute Assessment and Plan: Patient suffered fall at nursing facility. Apparently, has had several recent falls. Aside from hip, no other injuries sustained from most recent fall. Head CT and cervical spine CT showed no acute findings. Fall precautions implemented. (3) Acute on chronic anemia: Code(s): D64.9 - Anemia, unspecified Status: Acute Assessment and Plan: Baseline hemoglobin 10-11. Hemoglobin declined to 7.4 postoperatively. Likely secondary to blood loss from surgery. No signs of active bleeding. Repeat H&H this afternoon to ensure remaining stable. (4) Confusion: Code(s): R41.0 - Disorientation, unspecified Status: Resolved Assessment and Plan: Patient confused on initial encounter and do suspect some underlying dementia. Patient is A&O x4 today. Continue to monitor mental status (5) Hypertension, uncontrolled: Code(s): I10 - Essential (primary) hypertension Status: Chronic Assessment and Plan: Blood pressures poorly controlled initially, in the 200s systolic. BP has improved postoperatively. Continue home losartan, metoprolol succinate, hydrochlorothiazide. P.r.n. hydralazine as needed for systolic BP >165. Continue to monitor blood pressure trends closely (6) Type 2 diabetes mellitus with hyperglycemia: Qualifiers: Diabetes mellitus care home insulin use: with extermination supervisor use Qualified Code(s): E11.65 - Type 2 diabetes mellitus with hyperglycemia; Z79.4 - senior living (current) use of insulin Code(s): E11.65 - Type 2 diabetes mellitus with hyperglycemia Status: Chronic Assessment and Plan: A1c is 7.3. Continue Accu-Cheks, low-dose sliding scale insulin, and home Lantus with 20% dose reduction (22 units qHS). Monitor glucose trends and adjust insulin regimen as needed. (7) Chronic kidney disease, stage 4 (severe): Code(s): N18.4 - Chronic kidney disease, stage 4 (severe) Status: Chronic Assessment and Plan: Creatinine appears consistent with baseline. Continue to monitor renal function (8) Leukocytosis: Code(s): D72.829 - Elevated white blood cell count, unspecified Status: Acute Assessment and Plan: Remaining stable. Review of prior labs suggests chronic, mild elevation. Acute increase may be reactive secondary to fall and surgical intervention. No signs/symptoms to suggest underlying infectious etiology. UA without concerns for infection. CXR slightly abnormal, favor atelectasis over infiltrate and patient is asymptomatic. Incentive spirometry provided, patient will likely need some assistance to utilize. Continue to monitor CBC Subjective Date/time seen: 02/26/22 14:15 Interval history: Date of service: 02/26/2022 Elsie cantu is an 86-year-old female with a history of osteopenia, anemia, CKD, hypertension, type 2 diabetes mellitus, glaucoma, diverticulitis, and ventral hernia who is seen in follow-up for right hip frac
[2022-02-26] MEDS: ATORVASTATIN 20 MG TABLET PO (17:09)
[2022-02-26 17:36] LABS: Glucose Point of Care 213 mg/dl (65-105)
[2022-02-26] MEDS: INSULIN ASPART (*BKC) 100 UNITS/ML SUB-Q (17:42)
[2022-02-26 20:19] VITALS: BP 155/54; PULSE 72; RESP 20; TEMP 36.3; O2SAT 99
[2022-02-26] MEDS: INSULIN GLARGINE (*BKC) 100 UNITS/ML 22 UNITS SUB-Q (20:29)
[2022-02-26 20:42] LABS: Hemoglobin 7.5 g/dL (12.0-15.0)
[2022-02-26 20:42] LABS: Glucose Point of Care 196 mg/dl (65-105)
[2022-02-27] VITALS (9 sets, daily range): BP systolic 149–200; BP diastolic 48–68; PULSE 61–77; RESP 14–18; TEMP 36.4–36.6; O2SAT 94–100; BMI 38.5
--- NOTE | 2022-02-27 00:15 | PCRCNOTE ---
Pt does not have CPAP at home refuses to have one here
[2022-02-27] MEDS: HYDROcodone/acetaminophen (*CRX) 5-325 MG TABLET 1 TAB PO ×4 (00:32→13:32)
[2022-02-27] MEDS: MORPHINE SULFATE (*CRX) 2 MG/ML INJ IV PUSH ×2 (01:06→05:32)
[2022-02-27 05:42] LABS: Basophils Absolute Auto 0.1 K/mm3 (0.0-0.1); Basophils Percent Auto 0.4 % (0.2-1.2); Eosinophils Absolute Auto 0.2 K/mm3 (0-0.3); Eosinophils Percent Auto 1.7 % (0-4.4); Hematocrit 21.2 % (37.0-47.0); Immature Granulocyte Absolute 0.25 K/mm3 (0.00-0.031); Immature Granulocyte Percent A 1.8 % (0-0.5); Lymphocytes Absolute Auto 2.92 K/mm3 (0.9-3.2); Lymphocytes Percent Auto 20.8 % (18.3-44.2); Mean Corpuscular HGB Conc 32.5 g/dl (32-36); Mean Corpuscular Hemoglobin 29.9 pg (26-34); Mean Corpuscular Volume 91.8 fl (80-100); Monocytes Absolute Auto 1.4 K/mm3 (0.1-0.6); Monocytes Percent Auto 10.1 % (2.6-8.5); Neutrophils Absolute Auto 9.1 K/mm3 (1.3-6.7); Neutrophils Percent Auto 65.2 % (45.5-73.1); Platelet Count Result 300 k/mm3 (150-375); Red Blood Count 2.31 M/mm3 (4.2-5.4); Red Cell Distribution Width 12.3 % (11.5-14.5)
[2022-02-27 05:46] LABS: Hemoglobin 6.9 g/dL (12.0-15.0)
[2022-02-27 05:50] LABS: Anion Gap 11 mmol/L (8-16); Blood Urea Nitrogen 44 mg/dL (7-17); Calcium 7.6 mg/dL (8.4-10.2); Carbon Dioxide 25 mmol/L (22-30); Chloride 100 mmol/L (98-107); Estimated CRCL calculation 21 ml/min; Estimated Glomerular Filt Rate 25; Glucose 134 mg/dL (65-110); Potassium 3.7 mmol/L (3.4-5.0); Sodium 136 mmol/L (137-145)
[2022-02-27 08:32] LABS: Glucose Point of Care 126 mg/dl (65-105)
--- NOTE | 2022-02-27 08:57 | PC.NURSE ---
Pt oriented last night to sign blood consent. This am pt confused. Spoke with POA regarding receiving transfusion and is ok with it.
[2022-02-27] MEDS: SODIUM CHLORIDE 0.9% IV 250 ML 30 ML IV CONT (09:42)
[2022-02-27] MEDS: hydroCHLOROthiazide 25 MG TABLET PO (09:48)
[2022-02-27] MEDS: METOPROLOL SUCCINATE EXT REL 100 MG TABCR PO (09:49)
[2022-02-27] MEDS: FLUTICASONE PROPIONATE 0.05% NA SPR 16 GM BTL (*BKC) 1 SPRAY NASAL ×2 (09:49→20:33)
[2022-02-27] MEDS: DORZOLAMIDE/TIMOLOL OPHTH SOL 10 ML BOTTLE 1 DROP EACH EYE ×2 (09:49→20:33)
[2022-02-27] MEDS: LOSARTAN POTASSIUM 100 MG TABLET PO (09:49)
[2022-02-27] MEDS: polyethylene glycoL 3350 17 GM POWD.PACK PO (09:49)
[2022-02-27] MEDS: LIDOCAINE 5% PATCH 1 PATCH TRANSDERM (09:49)
[2022-02-27] MEDS: SENNA/DOCUSATE SODIUM TABLET 2 TAB PO ×2 (09:49→17:09)
[2022-02-27] MEDS: PANTOPRAZOLE 40 MG TABLET PO (09:57)
[2022-02-27] MEDS: ONDANSETRON INJ 4 MG/2 ML VIAL IV PUSH (09:58)
--- NOTE | 2022-02-27 11:55 | PM.IMPN ---
Progress Note: A&P Assessment and Plan (1) Closed intertrochanteric fracture of right femur: Qualifiers: Encounter type: initial encounter Fracture alignment: displaced Qualified Code(s): S72.141A - Displaced intertrochanteric fracture of right femur, initial encounter for closed fracture Code(s): S72.141A - Displaced intertrochanteric fracture of right femur, initial encounter for closed fracture Status: Acute Assessment and Plan: Sustained secondary to fall. Appreciate orthopedic surgery consultation. Underwent ORIF on 02/24/2022 and tolerated this procedure well. Continue low-dose Eliquis 2.5 mg b.i.d. for DVT prophylaxis. Continue PT/OT. Plan for discharge to [facility] once medically stable (2) Frequent falls: Code(s): R29.6 - Repeated falls Status: Acute Assessment and Plan: Patient suffered fall at nursing facility. Apparently, has had several recent falls. Aside from hip, no other injuries sustained from most recent fall. Head CT and cervical spine CT showed no acute findings. Fall precautions implemented. (3) Acute on chronic anemia: Code(s): D64.9 - Anemia, unspecified Status: Acute Assessment and Plan: Baseline hemoglobin 10-11. Hemoglobin declined to 6.9 postoperatively and patient is being transfuse 1 unit packed RBCs. Suspect secondary to blood loss from surgery. No evidence of active bleeding. Eliquis placed on hold given worsened anemia, but will resume at this time as no active bleeding is suspected. Repeat H&H 1 hour following completion of transfusion (4) Confusion: Code(s): R41.0 - Disorientation, unspecified Status: Resolved Assessment and Plan: Patient confused on initial encounter and do suspect some underlying dementia. Mental status has improved and patient is oriented and answering all questions appropriately. Continue to monitor mental status (5) Hypertension, uncontrolled: Code(s): I10 - Essential (primary) hypertension Status: Chronic Assessment and Plan: Blood pressures poorly controlled initially, in the 200s systolic. BP has improved postoperatively. Continue home losartan, metoprolol succinate, hydrochlorothiazide. P.r.n. hydralazine as needed for systolic BP >165. Continue to monitor blood pressure trends closely (6) Type 2 diabetes mellitus with hyperglycemia: Qualifiers: Diabetes mellitus jail insulin use: with jail use Qualified Code(s): E11.65 - Type 2 diabetes mellitus with hyperglycemia; Z79.4 - senior care (current) use of insulin Code(s): E11.65 - Type 2 diabetes mellitus with hyperglycemia Status: Chronic Assessment and Plan: A1c is 7.3. Continue Accu-Cheks, low-dose sliding scale insulin, and home Lantus with 20% dose reduction (22 units qHS). Monitor glucose trends and adjust insulin regimen as needed. (7) Chronic kidney disease, stage 4 (severe): Code(s): N18.4 - Chronic kidney disease, stage 4 (severe) Status: Chronic Assessment and Plan: Creatinine appears consistent with baseline. Continue to monitor renal function (8) Leukocytosis: Code(s): D72.829 - Elevated white blood cell count, unspecified Status: Acute Assessment and Plan: Remaining stable. Review of prior labs suggests chronic, mild elevation. Acute increase may be reactive secondary to fall and surgical intervention. No signs/symptoms to suggest underlying infectious etiology. UA without concerns for infection. CXR slightly abnormal, favor atelectasis over infiltrate and patient is asymptomatic. Incentive spirometry provided, patient will need some assistance to utilize. Continue to monitor CBC Subjective Date/time seen: 02/27/22 11:55 Interval history: Date of service: 02/27/2022 Elsie cantu is an 86-year-old female with a history of osteopenia, anemia, CKD, hypertension, type
[2022-02-27 12:29] LABS: Glucose Point of Care 172 mg/dl (65-105)
--- NOTE | 2022-02-27 13:33 | PCOTNOTE ---
Attempted to see patient this pm, however pt not seen due to increased BP 200/68. RN present and aware.
[2022-02-27] MEDS: hydrALAZINE HCL 20 MG/ML VIAL 10 MG IV PUSH (13:35)
--- NOTE | 2022-02-27 14:41 | PM.PNORT ---
Progress Note: A&P Assessment and Plan (1) Closed intertrochanteric fracture of right femur: Qualifiers: Encounter type: initial encounter Fracture alignment: displaced Qualified Code(s): S72.141A - Displaced intertrochanteric fracture of right femur, initial encounter for closed fracture Code(s): S72.141A - Displaced intertrochanteric fracture of right femur, initial encounter for closed fracture Status: Acute Plan 86 year old female post op day 3 after ORIF right IT hip fracture. No signs of drainage or infection at the surgical site. Dressings look clean and dry. She will need staple removal in 2 weeks. She is to remain touch down weightbearing for a minimum of 8 weeks with a walker. Plan for follow up in the office 8 weeks after surgical date. Pain: prefer arthritis strength tylenol at discharge due to patient memory challenges DVT prophylaxis: 325 mg daily aspirin x6 weeks starting at time of discharge Subjective Subjective Date/Time Seen: 02/27/22 14:41 Post Op day: 3 Principal diagnosis: s/p ORIF right IT hip fracture Review of Systems Review of Systems: All systems reviewed & are unremarkable except as noted in HPI and below Constitutional: Constitutional: Reports as per HPI Musculoskeletal: Musculoskeletal: Reports back pain (chronic low back pain) Exam Const: General: comfortable and no acute distress Resp: Effort & Inspection: normal respiratory effort GI: Inspection: non-distended Skin: General skin exam: normal color, no ecchymosis and no erythema Neuro: Sensory Exam: normal sensation Extrem: Other: Exam of the right hip shows two clean and dry surgical dressings. No swelling distal to the surgical site. She is able to wiggle her toes without difficulty. Denies numbness. Neurovascular status intact RLE. Psych: Mental Status: mental status grossly normal Radiology Reports: Comments: EXAMINATION: XR surgery orthopedic DATE: 02/24/2022 13:01 INDICATION: Right hip fracture for intertrochanteric nailing TECHNIQUE: 4 fluoroscopic images of the right hip and proximal femur were obtained during procedure performed by Dr. Bravo. Radiologist was not present for the imaging or procedure. The amount of fluoroscopy time used during this procedure was 0.9 minutes.? COMPARISON: 02/22/2022 FINDINGS: Interval open reduction internal fixation of the previously seen mildly displaced intertrochanteric fracture the proximal right femur which is now in near-anatomic alignment. The fracture is fixed with antegrade intramedullary grayson, femoral neck dynamic compression screw and distal interlocking screw fixation and is now in near-anatomic alignment. No new fractures identified. Mild osteoarthritis of the right hip. IMPRESSION: 1. Near-anatomic alignment post open reduction and internal fixation of a right hip intertrochanteric fracture. Objective Data Vital Signs Vital Signs: Vital Signs - 24 hr 02/26/22 20:19 02/27/22 05:25 02/27/22 09:49 Temperature 97.4 F L 97.6 F Pulse Rate 72 77 65 Respiratory Rate 20 18 Blood Pressure 155/54 H 163/64 H Pulse Oximetry 99 97 Oxygen Delivery 02/27/22 10:00 02/27/22 08:00 02/27/22 10:20 Temperature 97.8 F 97.9 F Pulse Rate 65 65 Respiratory Rate 16 14 Blood Pressure 153/59 H 178/48 H Pulse Oximetry 94 94 Oxygen Delivery Room Air 02/27/22 11:20 02/27/22 12:20 02/27/22 13:39 Temperature 97.6 F 97.9 F 97.9 F Pulse Rate 61 64 72 Respiratory Rate 14 16 14 Blood Pressure 169/52 H 156/64 H 200/68 H Pulse Oximetry 98 97 100 Oxygen Delivery Intake/Output Intake/Output: Intake & Output 02/24/22 02/25/22 02/26/22 02/27/22 23:59 23:59 23:59 23:59 Intake Total 0064 604 6534 1010 Output Total 260 650 575 Balance 1490 -133 308 0383 Meds/Results Medications: Active Medications Generic Name Dose Route Start Last Admin Trade Name Freq PRN Reason Stop Dose Admin Acetaminophen 650 mg 02/24/22 14:32
[2022-02-27 14:56] LABS: Hematocrit 27.1 % (37.0-47.0)
[2022-02-27] MEDS: ATORVASTATIN 20 MG TABLET PO (17:09)
[2022-02-27 19:25] LABS: Glucose Point of Care 149 mg/dl (65-105)
[2022-02-27 20:20] LABS: Glucose Point of Care 162 mg/dl (65-105)
[2022-02-27] MEDS: INSULIN GLARGINE (*BKC) 100 UNITS/ML 22 UNITS SUB-Q (20:32)
[2022-02-27] MEDS: HYDROcodone/acetaminophen (*CRX) 7.5-325 MG TABLET 1 TAB PO (20:33)
[2022-02-27] MEDS: APIXABAN 2.5 MG TABLET PO (21:38)
[2022-02-28] MEDS: HYDROcodone/acetaminophen (*CRX) 7.5-325 MG TABLET 1 TAB PO (04:55)
[2022-02-28 05:41] LABS: Hematocrit 27.1 % (37.0-47.0); Hemoglobin 8.9 g/dL (12.0-15.0); Mean Corpuscular HGB Conc 32.8 g/dl (32-36); Mean Corpuscular Hemoglobin 29.1 pg (26-34); Mean Corpuscular Volume 88.6 fl (80-100); Mean Platelet Volume 9.5 fl (7.4-10.4); Platelet Count Result 371 k/mm3 (150-375); Red Blood Count 3.06 M/mm3 (4.2-5.4); Red Cell Distribution Width 12.7 % (11.5-14.5); White Blood Count 13.1 K/mm3 (4.5-10.0)
[2022-02-28 05:50] LABS: Anion Gap 11 mmol/L (8-16); Blood Urea Nitrogen 46 mg/dL (7-17); Calcium 8.2 mg/dL (8.4-10.2); Carbon Dioxide 25 mmol/L (22-30); Chloride 101 mmol/L (98-107); Estimated CRCL calculation 21 ml/min; Estimated Glomerular Filt Rate 25; Glucose 115 mg/dL (65-110); Potassium 3.8 mmol/L (3.4-5.0); Sodium 137 mmol/L (137-145)
[2022-02-28 05:58] VITALS: BP 155/51; PULSE 66; RESP 18; TEMP 36.1; O2SAT 95
[2022-02-28] MEDS: FLUTICASONE PROPIONATE 0.05% NA SPR 16 GM BTL (*BKC) 1 SPRAY NASAL (08:06)
[2022-02-28] MEDS: polyethylene glycoL 3350 17 GM POWD.PACK PO (08:06)
[2022-02-28] MEDS: hydroCHLOROthiazide 25 MG TABLET PO (08:06)
[2022-02-28] MEDS: DORZOLAMIDE/TIMOLOL OPHTH SOL 10 ML BOTTLE 1 DROP EACH EYE (08:06)
[2022-02-28] MEDS: SENNA/DOCUSATE SODIUM TABLET 2 TAB PO (08:06)
[2022-02-28 08:07] VITALS: PULSE 67
[2022-02-28] MEDS: LOSARTAN POTASSIUM 100 MG TABLET PO (08:07)
[2022-02-28] MEDS: METOPROLOL SUCCINATE EXT REL 100 MG TABCR PO (08:07)
[2022-02-28] MEDS: PANTOPRAZOLE 40 MG TABLET PO (08:07)
[2022-02-28] MEDS: APIXABAN 2.5 MG TABLET PO (08:07)
[2022-02-28] MEDS: LIDOCAINE 5% PATCH 1 PATCH TRANSDERM (08:07)
[2022-02-28] MEDS: HYDROcodone/acetaminophen (*CRX) 5-325 MG TABLET 1 TAB PO (08:19)
[2022-02-28 08:42] LABS: Glucose Point of Care 112 mg/dl (65-105)
--- NOTE | 2022-02-28 09:49 | PM.DS ---
DS: Admitting Diagnosis Discharge Date 02/28/2022 Admitting Diagnosis right hip fracture DS: Discharge Diagnosis Discharge Diagnosis (1) Closed intertrochanteric fracture of right femur: Qualifiers: Encounter type: initial encounter Fracture alignment: displaced Qualified Code(s): S72.141A - Displaced intertrochanteric fracture of right femur, initial encounter for closed fracture Code(s): S72.141A - Displaced intertrochanteric fracture of right femur, initial encounter for closed fracture Status: Acute Assessment and Plan: Sustained secondary to fall. Seen in consultation by Orthopedic surgery and underwent ORIF on 02/24/2022. She tolerated this procedure well. Receive low-dose Eliquis 2.5 mg b.i.d. postoperatively during admission for DVT prophylaxis and was transition to aspirin 325 mg daily as an outpatient for 8 weeks. Participated in PT/OT during admission will continue therapy at SNF. Will follow-up with orthopedic surgery in 8 weeks. (2) Frequent falls: Code(s): R29.6 - Repeated falls Status: Acute Assessment and Plan: Patient suffered fall at nursing facility. Apparently, has had several recent falls. Aside from hip, no other injuries sustained from most recent fall. Head CT and cervical spine CT showed no acute findings. Fall precautions implemented. (3) Acute on chronic anemia: Code(s): D64.9 - Anemia, unspecified Status: Acute Assessment and Plan: Baseline hemoglobin 10-11. Hemoglobin declined to 6.9 postoperatively and patient was transfused 1 unit packed RBCs. Suspect secondary to blood loss from surgery. No evidence of active bleeding. H&H stabilized following transfusion. Repeat in 1 week at nursing facility to ensure remaining stable (4) Confusion: Code(s): R41.0 - Disorientation, unspecified Status: Resolved Assessment and Plan: Patient confused on initial encounter and do suspect some underlying dementia. Mental status improved and patient was oriented and answering all questions appropriately. She does exhibit some occasional forgetfulness. (5) Hypertension, uncontrolled: Code(s): I10 - Essential (primary) hypertension Status: Chronic Assessment and Plan: Blood pressures poorly controlled initially, in the 200s systolic, likely secondary to pain. Blood pressures improved postoperatively. Continue home losartan, metoprolol succinate, hydrochlorothiazide. 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 Continue home Lantus. Blood sugars to be monitored outside facility and will be recorded for PCP review (7) Chronic kidney disease, stage 4 (severe): Code(s): N18.4 - Chronic kidney disease, stage 4 (severe) Status: Chronic Assessment and Plan: Creatinine remained consistent with baseline. (8) Leukocytosis: Code(s): D72.829 - Elevated white blood cell count, unspecified Status: Acute Assessment and Plan: Remained stable. Review of prior labs suggest chronic, mild elevation. Acute increase may be reactive secondary to fall and surgical intervention. No signs/symptoms to suggest underlying infectious etiology. UA without concerns for infection. CXR slightly abnormal, favor atelectasis over infiltrate and patient was asymptomatic. Incentive spirometry provided. DS: Summary Hospital Course Hospital Course: date of admission: 02/22/2022 date of discharge: 02/28/2022 Elsie cantu is an 86-year-old female with a history of osteopenia, anemia, CKD, hypertension, type 2 diabetes mellitus, gl[place]o
[2022-02-28 11:30] VITALS: BMI 10.0
[2022-02-28 11:46] LABS: EDCOVIDSCREEN Positive (Negative)
[2022-02-28 12:05] LABS: Glucose Point of Care 143 mg/dl (65-105)
[2022-02-28 13:05] VITALS: BP 152/58; PULSE 64; RESP 18; TEMP 36.2; O2SAT 96
== END 2022-02-28 13:35 | DRG 481 ==
LOC: ANHED 16:38 → ANH2MED 17:20 → ANHIMU 20:10 → ANH3MED 02-24 22:48
PROVIDERS: Orthopaedic Surgery; Physician Assistant; Admitting Provider Student in an Organized Health Care Education/Training Program; Emergency Provider Emergency Medicine; PCP Family Medicine; Visit Provider Internal Medicine
PROC: 0QS634Z Reposition Right Upper Femur with Internal Fixation Device, Percutaneous Approach (ICD-10-PCS; CPT 27245; principal; 2022-02-24 12:00)
DX: S72.141A Displaced intertrochanteric fracture of right femur, initial encounter for closed fracture (principal); D62 Acute posthemorrhagic anemia; N18.4 Chronic kidney disease, stage 4 (severe); R29.6 Repeated falls; E11.65 Type 2 diabetes mellitus with hyperglycemia; I12.9 Hypertensive chronic kidney disease with stage 1 through stage 4 chronic kidney disease, or unspecified chronic kidney disease; Z79.4 Long term (current) use of insulin; E11.22 Type 2 diabetes mellitus with diabetic chronic kidney disease; F17.210 Nicotine dependence, cigarettes, uncomplicated; F03.90 Unspecified dementia, unspecified severity, without behavioral disturbance, psychotic disturbance, mood disturbance, and anxiety; E11.42 Type 2 diabetes mellitus with diabetic polyneuropathy; E78.49 Other hyperlipidemia; M85.80 Other specified disorders of bone density and structure, unspecified site; Z83.3 Family history of diabetes mellitus; Z82.49 Family history of ischemic heart disease and other diseases of the circulatory system; Z79.899 Other long term (current) drug therapy; Z79.51 Long term (current) use of inhaled steroids; W01.0XXA Fall on same level from slipping, tripping and stumbling without subsequent striking against object, initial encounter; Z20.822 Contact with and (suspected) exposure to COVID-19
CPT/HCPCS: 36415; 36430; 36569; 51702; 70450; 71045; 72125; 73502; 80048; 82948; 83036; 83735; 84443; 85014; 85018; 85025; 85027; 85055; 85610; 85730; 86850; 86900; 86901; 86923; 87426; 93005; 96372; 96374; 96375; 97110; 97162; 97166; 97530; 97535; 99199; 99285; A9270; C1713; C9803; G0378; J0330; J0360; J0690; J1815; J2270; J2405; J2704; J3010; J7030; J7050; J7120; P9016; U0003; U0005